=== PATIENT | male | born 1985 | race Hispanic/Latino ===

== ENCOUNTER 2021-06-20 13:34 | Inpatient (IN) | payer SELFPAY ==
[2021-06-20] MEDS ORDERED: ONDANSETRON 4 MG/2 ML INJ IV ONE ×2 (15:08→18:50)
[2021-06-20] MEDS ORDERED: SODIUM CHLORIDE 0.9% 1000 ML 1,000 ML IV ONE (15:08)
--- NOTE | 2021-06-20 15:20 | Emergency Department Report ---
ED General Adult HPI - General Chief complaint: GI Bleed Stated complaint: VOMITING BLOOD PUI?: No Time Seen by Provider: 06/20/21 14:46 Source: EMS Mode of arrival: Stretcher Limitations: No Limitations - History of Present Illness Initial comments: This is a pleasant 36-year-old male who came from mental health; according teresa martinez he was admitted to mental [facility] for hallucination; patient's only medical history is hypertension stated that he does not drink alcohol routinely came in today with concerns of vomiting blood for the past few days that comes and goes. Patient also endorsed right upper quadrant discomfort and also generalized abdominal discomfort. Patient is unable to tell me what makes the abdominal discomfort worse. At the time my evaluation patient denies any discomfort but only right upper quadrant and also epigastric discomfort. Patient current denies any fever chill night sweat dizziness blurred vision lightheadedness headache tinnitus ear pain runny nose sore throat loss of taste loss of smell chest pain palpitation short of breath cough diarrhea constipation dysuria myalgia arthralgia new rash and heat or cold intolerance. - Related Data Home Medications Medication Instructions Recorded Confirmed Last Taken AtorvaSTATin 20 mg PO HS 06/20/21 06/20/21 1 Day Ago ~06/19/21 Famotidine [Acid Controller] 20 mg PO BID 06/20/21 06/20/21 1 Day Ago ~06/19/21 Gabapentin 300 mg PO TID 06/20/21 06/20/21 1 Day Ago ~06/19/21 Magnesium Oxide 400 400 mg PO HS 06/20/21 06/20/21 1 Day Ago ~06/19/21 Melatonin 10 mg PO HS 06/20/21 06/20/21 1 Day Ago ~06/19/21 Metoprolol 12.5 mg PO BID 06/20/21 06/20/21 1 Day Ago ~06/19/21 Mirtazapine 15 mg PO HS 06/20/21 06/20/21 1 Day Ago ~06/19/21 guanFACINE (NF) 1 mg PO BID 06/20/21 06/20/21 1 Day Ago ~06/19/21 Allergies Allergy/AdvReac Type Severity Reaction Status Date / Time sulfamethoxazole Allergy Swelling Verified 06/20/21 14:46 [From Bactrim] trimethoprim [From Bactrim] Allergy Swelling Verified 06/20/21 14:46 ED Review of Systems ROS: Stated complaint: VOMITING BLOOD Other details as noted in HPI Comment: All other systems reviewed and negative Constitutional: no symptoms reported, see HPI Eyes: as per HPI ENT: as per HPI Respiratory: no symptoms reported, see HPI Cardiovascular: as per HPI Endocrine: no symptoms reported, see HPI Gastrointestinal: as per HPI Genitourinary: as per HPI Musculoskeletal: as per HPI Skin: as per HPI Neurological: as per HPI Psychiatric: as per HPI Hematological/Lymphatic: as per HPI ED Past Medical Hx - Past Medical History Previous Medical History?: Yes - Medications Home Medications: Home Medications Medication Instructions Recorded Confirmed Last Taken Type AtorvaSTATin 20 mg PO HS 06/20/21 06/20/21 1 Day Ago History ~06/19/21 Famotidine [Acid Controller] 20 mg PO BID 06/20/21 06/20/21 1 Day Ago History ~06/19/21 Gabapentin 300 mg PO TID 06/20/21 06/20/21 1 Day Ago History ~06/19/21 Magnesium Oxide 400 400 mg PO HS 06/20/21 06/20/21 1 Day Ago History ~06/19/21 Melatonin 10 mg PO HS 06/20/21 06/20/21 1 Day Ago History ~06/19/21 Metoprolol 12.5 mg PO BID 06/20/21 06/20/21 1 Day Ago History ~06/19/21 Mirtazapine 15 mg PO HS 06/20/21 06/20/21 1 Day Ago History ~06/19/21 guanFACINE (NF) 1 mg PO BID 06/20/21 06/20/21 1 Day Ago History ~06/19/21 ED Physical Exam - General Limitations: No Limitations General appearance: alert, in no apparent distress - Head Head exam: Present: atraumatic, normocephalic, normal inspection - Eye Eye exam: Present: normal appearance, PERRL, EOMI Pupils: Present: normal accommodation - ENT ENT exam: Present: normal exam - Neck Neck exam: Present: normal inspection, full ROM - Respiratory Respiratory exam: Present: normal lung sounds bilaterally - Cardiovascular Cardiovascular Exam: Present: regular rate - GI/Abdominal GI/Abdominal exam: Present: soft, distended, tenderness (MID/EPIGASTRIC REGION; NEGATIAVE AT RIGHT UPPRE QUADRATN (NEGATIVE ACEVEDO)), normal bowel sounds. Absent: guarding, rebound, rigid - Extremities Exam Extremities exam: Present: normal inspection, full ROM, normal capillary refill - Back Exam Back exam: Present: normal inspection, full ROM - Neurological Exam Neurological exam: Present: alert, altered, oriented X3, CN II-XII intact - Psychiatric Psychiatric exam: Present: normal affect, normal mood - Skin Skin exam: Present: normal color ED Course Vital Signs 06/20/21 06/20/21 14:04 17:54 Pulse Rate 100 H Respiratory 18 18 Rate Blood Pressure 140/105 [Right] O2 Sat by Pulse 97 Oximetry ED Medical Decision Making - Lab Data Result diagrams: 06/20/21 16:02 06/20/21 16:02 - Medical Decision Making PATIENT HAD AN EPISODE OF VOMITING BLOOD IN FRONT OF MY NURSE AND PER NURSE, ITS NOT COUGHING BUT FOR SURE VOMITING. ON MY ARRIVAL, I DO SEE A PUDDLE OF BLOOD (BRIGHT RED); WILL START PPI, NPO, CALL HOSPITALIST AND GI. PATIENT HEMODYNAMICALLY STABLE WITH PATENT AIRWAY. Critical care attestation.: If time is entered above; I have spent that time in minutes in the direct care of this critically ill patient, excluding procedure time. ED Disposition Clinical Impression: Hematemesis of fresh blood, Biliary sludge determined by ultrasound Disposition: 02 SHORT TERM HOSPITAL Is pt being admited?: Yes Does the pt Need Aspirin: No Condition: Stable Instructions: Hematemesis Referrals: PRIMARY CARE, [Primary Care Provider] - 3-5 Days Forms: Accompanied Note Time of Disposition: 18:55
--- NOTE | 2021-06-20 16:29 | Ultrasound Report ---
ULTRASOUND ABDOMEN, LIMITED (RIGHT UPPER QUADRANT) INDICATION: ruq pain. COMPARISON: None available. FINDINGS: Pancreas: Not well visualized. Liver: Normal in size. Generalized increased echotexture. No solid or cystic lesions. Normal portal v enous flow. Gallbladder: Contracted without visualization of stones. A small/moderate amount of sludge is present . Sonographic Walker's sign: Not performed. Bile ducts: No significant abnormality. Common Bile Duct measures 3.6 mm. Free fluid: None. Additional Findings: None. IMPRESSION: 1. Increased hepatic echotexture, most commonly representing steatosis. 2. Contracted gallbladder containing sludge without clearly visualize shadowing stones or evidence of acute cholecystitis. Signer Name: Raza Mendieta MD Signed: 06/20/2021 4:25 PM Workstation Name: [id number]
[2021-06-20 16:30] LABS: Hematocrit 41.4 % (35.5-45.6); Hemoglobin 13.5 gm/dl (11.8-15.2); Mean Corpuscular HGB Conc 33 % (32-34); Mean Corpuscular Volume 83 fl (84-94); Platelet Count 311 K/mm3 (140-440); Red Blood Count 4.97 M/mm3 (3.65-5.03); Red Cell Distribution Width 14.8 % (13.2-15.2)
[2021-06-20 16:41] LABS: INR 0.89 (0.87-1.13)
[2021-06-20 16:42] LABS: Partial Thromboplastin Time 25.4 Sec. (24.2-36.6)
[2021-06-20 16:59] LABS: Alanine Aminotransferase 28 units/L (7-56); Albumin 3.7 g/dL (3.9-5); BUN/Creatinine Ratio 14; Blood Urea Nitrogen 10 mg/dL (9-20); Calcium 8.4 mg/dL (8.4-10.2); Hemolysis Index 4
--- NOTE | 2021-06-20 17:29 | Cat Scan Report ---
CT ABDOMEN AND PELVIS WITH CONTRAST INDICATION / CLINICAL INFORMATION: Unspecified abdominal discomfort. TECHNIQUE: Axial CT images were obtained through the abdomen and pelvis after 100 cc Omnipaque [address] scans at this location are performed using CT dose reduction for ALARA by means of automated exposure control. COMPARISON: None available. FINDINGS: LOWER CHEST: No significant abnormality. LIVER: A probable subcentimeter cyst is seen along the lateral segment of the left hepatic lobe. No o ther significant abnormality. GALLBLADDER: No significant abnormality. BILE DUCTS: No significant abnormality. PANCREAS: No significant abnormality. SPLEEN: No significant abnormality. ADRENALS: No significant abnormality. RIGHT KIDNEY/URETER: No significant abnormality. LEFT KIDNEY/URETER: No significant abnormality. STOMACH/SMALL BOWEL: No significant abnormality. COLON: No significant abnormality. APPENDIX: No significant abnormality. PERITONEUM: No free fluid. No free air. No fluid collection. LYMPH NODES: No significant adenopathy. VASCULATURE: No significant abnormality. URINARY BLADDER: No significant abnormality. REPRODUCTIVE ORGANS: No significant abnormality. ADDITIONAL FINDINGS: None. BONES: No acute findings. Multiple old bilateral rib fractures are noted. IMPRESSION: 1. No acute findings to explain the patient's abdominal discomfort. 2. Additional findings as above. Signer Name: Raza Mendieta MD Signed: 06/20/2021 5:25 PM Workstation Name: [id number]
[2021-06-20] MEDS ORDERED: MORPHINE 4 MG/1 ML INJ IV ONE (17:47)
[2021-06-20] MEDS ORDERED: PANTOPRAZOLE 40 MG INJ IV ONE (18:52)
--- NOTE | 2021-06-20 19:07 | History and Physical Report ---
History of Present Illness Chief complaint: I have been vomiting of blood History of present illness: 36 YO Male with HTN, Obesity Hypoventilation Syndrome, GERD, Neuropathy, Psychosis NOS presents ED for evaluation. Patient reports "I been vomiting up blood". Patient states that he has experienced 3-4 episodes of "vomiting of blood over the past 3 days. Patient states his symptoms have been accompanied by abdominal discomfort. EMS was notified and upon arrival the patient was found to be in distress and subsequently transported to [facility] for further care and evaluation of the aforementioned symptoms. The patient was seen and evaluated in the emergency department. All lab and imaging studies reviewed. Patient had a witnessed episode of hematemesis while in the emergency department. GI team was consulted. Patient admitted to medical floor due to increased risk of worsening symptoms. Patient initiated on GI bleed protocol. Patient denies fever, chills, chest pain, palpitations, productive cough, skin rash, recent ill contacts, bleeding, ingestion of food/water from new or different sources, brigh t red blood per rectum, recent ill contacts, known exposure to COVID-19. No prior admission for review. All medication listed at time of admission has been reconciled. Advanced care planning conducted in ED. Past History Past Medical History: hypertension, other (See HPI) Past Surgical History: No surgical history, Other (Reviewed) Social history: single. denies: smoking, alcohol abuse, prescription drug abuse Family history: hypertension Medications and Allergies Allergies Allergy/AdvReac Type Severity Reaction Status Date / Time sulfamethoxazole Allergy Swelling Verified 06/20/21 14:46 [From Bactrim] trimethoprim [From Bactrim] Allergy Swelling Verified 06/20/21 14:46 Home Medications Medication Instructions Recorded Confirmed Last Taken Type AtorvaSTATin 20 mg PO HS 06/20/21 06/20/21 1 Day Ago History ~06/19/21 Famotidine [Acid Controller] 20 mg PO BID 06/20/21 06/20/21 1 Day Ago History ~06/19/21 Gabapentin 300 mg PO TID 06/20/21 06/20/21 1 Day Ago History ~06/19/21 Magnesium Oxide 400 400 mg PO HS 06/20/21 06/20/21 1 Day Ago History ~06/19/21 Melatonin 10 mg PO HS 06/20/21 06/20/21 1 Day Ago History ~06/19/21 Metoprolol 12.5 mg PO BID 06/20/21 06/20/21 1 Day Ago History ~06/19/21 Mirtazapine 15 mg PO HS 06/20/21 06/20/21 1 Day Ago History ~06/19/21 guanFACINE (NF) 1 mg PO BID 06/20/21 06/20/21 1 Day Ago History ~06/19/21 Active Meds: Active Medications Pantoprazole Sodium 80 mg/ (Sodium Chloride) 100 mls @ 10 mls/hr IV DIRECT KRYSTYNA Review of Systems Constitutional: no weight loss, no weight gain, no fever, no chills, no anorexia, no fatigue, no weakness, no malaise Ears, nose, mouth and throat: no ear pain, no tinnitis, no nose pain, no nasal congestion, no nasal discharge, no sinus pressure Cardiovascular: no chest pain, no orthopnea, no edema Respiratory: no cough, no cough with sputum, no excessive sputum, no hemoptysis Gastrointestinal: hematemesis, no abdominal pain, no nausea, no vomiting, no diarrhea, no constipation, no change in bowel habits, no BRBPR, no melena, no loss of appetite, no heartburn, no indigestion Genitourinary Male: no hematuria, no flank pain, no discharge, no urinary frequency, no urinary hesitancy Rectal: no pain, no incontinence, no bleeding Musculoskeletal: no neck stiffness, no neck pain, no shooting arm pain, no arm numbness/tingling, no low back pain, no shooting leg pain Integumentary: no rash, no pruritis, no redness, no sores, no wounds, no jaundice Neurological: no head injury, no weakness, no tingling, no syncope Psychiatric: no anxiety, no change in sleep habits, no hypersomnia, no change in libido, no suicidal ideation Endocrine: no cold intolerance, no polyphagia, no polydipsia, no nocturia, no excessive sweating Hematologic/Lymphatic: no easy bruising, no easy bleeding, no lymphadenopathy Allergic/Immunologic: no urticaria, no allergic rhinitis, no persistent infections, no angioedema Exam - Constitutional Vitals: Temp Pulse Resp BP Pulse Ox 100 H 18 140/105 97 06/20/21 14:04 06/20/21 17:54 06/20/21 14:04 06/20/21 14:04 General appearance: Present: mild distress, obese - EENT Eyes: Present: PERRL ENT: hearing intact, clear oral mucosa - Neck Neck: Present: supple, normal ROM - Respiratory Respiratory effort: normal Respiratory: bilateral: CTA - Cardiovascular Heart Sounds: Present: S1 & S2. Absent: rub, click - Extremities Extremities: pulses symmetrical, No edema Peripheral Pulses: within normal limits - Abdominal General gastrointestinal: Present: soft, non-tender, non-distended, normal bowel sounds Male genitourinary: Present: normal - Integumentary Integumentary: Present: clear, warm, dry - Musculoskeletal Musculoskeletal: gait normal, strength equal bilaterally - Psychiatric Psychiatric: appropriate mood/affect, intact judgment & insight - Neurologic Neurologic: CNII-XII intact, moves all extremities Results - Labs CBC & Chem 7: 06/20/21 16:02 06/20/21 16:02 Labs: Abnormal lab results 06/20/21 06/20/21 Range/Units 16:02 16:02 WBC 15.9 H (4.5-11.0) K/mm3 MCV 83 L (84-94) fl MCH 27 L (28-32) pg Creatinine 0.7 L (0.8-1.3) mg/dL Albumin 3.7 L (3.9-5) g/dL Assessment and Plan - Patient Problems (1) GI bleed Current Visit: Yes Status: Acute Plan to address problem: GI bleed protocol: GI team consulted in ED, PPI therapy, IV fluid resuscitation therapy, bowel rest, will consider packed red blood cell transfusion if patient hemoglobin decreases by greater than 2 g within 24-hour period. (2) Hypertension Current Visit: Yes Status: Acute Qualifiers: Hypertension type: primary hypertension Qualified Code(s): I10 - Essential (primary) hypertension Plan to address problem: Monitor blood pressure every shift, continue medical management. (3) Obesity hypoventilation syndrome Current Visit: Yes Status: Acute Plan to address problem: Balanced diet, increase physical activity at discharge, outpatient pulmonary follow-up for sleep study. (4) Psychosis Current Visit: Yes Status: Acute Plan to address problem: Mental health team consulted. (5) GERD (gastroesophageal reflux disease) Current Visit: Yes Status: Acute Qualifiers: Esophagitis presence: without esophagitis Qualified Code(s): K21.9 - Gastro-esophageal reflux disease without esophagitis Plan to address problem: PPI therapy, supportive care. GI team consulted. (6) DVT prophylaxis Current Visit: Yes Status: Acute Plan to address problem: SCD to bilateral lower extremities while in bed (7) Advance care planning Current Visit: Yes Status: Acute Plan to address problem: Disease education done, care plan discussed, diagnoses discussed, prognosis discussed, patient is full code. Patient knowledges understanding and agreement with care plan, +30 minutes. (8) Preventative health care Current Visit: Yes Status: Acute Plan to address problem: Patient counseled regarding balanced diet, meal planning, medication compliance, +15 minutes.
[2021-06-20] MEDS ORDERED: ACETAMINOPHEN 325 MG TAB PO PRN (19:08)
[2021-06-20] MEDS ORDERED: oxyCODONE /ACETAMINOPHEN 5-325MG TAB PO PRN (19:08)
[2021-06-20] MEDS ORDERED: ALBUTEROL 2.5 MG/3 ML NEBU IH PRN (19:08)
[2021-06-20] MEDS ORDERED: PANTOPRAZOLE 80 MG in SODIUM CHLORIDE 0.9% 100 ML IV SCH (20:00)
--- NOTE | 2021-06-20 21:35 | Event Note ---
Date: 06/20/21 called by ER for patient with max hematemesis which was witnessed by ER staff. No history cirrhosis, pt stable so ok for non-emergent EGD, patient scheduled for EGD at 7:30AM tomorrow morning Please call back if patient has any hemodynamic instability which would require emergent endoscopy (we cannot perform procedures overnight so I would have to assess for transfer to different facility vs medical management until 7:30AM in the morning)
[2021-06-20] MEDS: GABAPENTIN 300 MG CAP PO SCH (21:45)
[2021-06-20] MEDS ORDERED: MIRTAZAPINE 15 MG PO SCH (22:00)
[2021-06-20] MEDS ORDERED: NON-FORMULARY EACH (Melatonin 10 MG) PO SCH (22:00)
[2021-06-20] MEDS ORDERED: NON-FORMULARY EACH (Atorvastatin 20 MG) PO SCH (22:00)
[2021-06-20] MEDS ORDERED: METOPROLOL 12.5 MG PO SCH (22:00)
[2021-06-20] MEDS ORDERED: MAGNESIUM OXIDE PO SCH (22:00)
[2021-06-20] MEDS: ONDANSETRON 4 MG/2 ML INJ IV PRN (22:04)
[2021-06-20] MEDS: HYDROmorphone 1 MG/1 ML INJ IV PRN (22:04)
[2021-06-20] MEDS: MIRTAZAPINE 15 MG TAB PO SCH (22:07)
[2021-06-20] MEDS: FAMOTIDINE 20 MG TAB PO SCH (22:07)
[2021-06-20] MEDS: MELATONIN 5 MG TAB PO SCH (22:08)
[2021-06-20] MEDS: METOPROLOL TARTRATE 25 MG TAB PO SCH (22:09)
[2021-06-21] MEDS: ONDANSETRON 4 MG/2 ML INJ IV PRN ×3 (05:56→15:52)
[2021-06-21] MEDS: HYDROmorphone 1 MG/1 ML INJ IV PRN ×3 (05:56→15:52)
[2021-06-21] MEDS ORDERED: WATER FOR IRRIG STERILE 1,000 ML BOTTLE ONE ×2 (07:22→07:24)
[2021-06-21] MEDS ORDERED: WATER FOR IRRIG STERILE 250 ML BOTTLE IR ONE (07:22)
[2021-06-21] MEDS ORDERED: SODIUM CHLORIDE 0.9% 1000 ML 1,000 ML ONE (07:22)
[2021-06-21] MEDS ORDERED: EPINEPHrine 1 MG/10 ML SYRINGE ONE (07:22)
[2021-06-21] MEDS ORDERED: propofoL 200 MG/20 ML VIAL IV ONE ×2 (07:39→07:40)
[2021-06-21] MEDS ORDERED: LIDOCAINE MPF (2%) 20 MG/1 ML VIAL 5 ML ONE (07:40)
--- NOTE | 2021-06-21 07:55 | Gastroenterology Consultation ---
History of Present Illness - Reason for Consult Consult date: 06/21/21 Hematemesis Requesting physician: ALTHEA VELAZCO - History of Present Illness Is a pleasant 36-year-old gentleman for whom GI is consulted for hematemesis Patient reports for the last 3 days having recurrent episodes of grossly bloody vomitus Reports this is associated with sharp right upper abdominal quadrant pain. Intermittent. Waxing and waning. Duration 3 days. Severe. No alleviating or exacerbating factors. Associated with nausea and bloody vomitus Reports he is not having active melena as he reports his last bowel movement was over 24 hours ago Denies taking NSAIDs though he reports he was just released from a mental health facility and had a recent incarceration Denies any abdominal trauma or history of peptic ulcer disease Reports his father had to have his gallbladder out at a young age unsure if this could be related In the emergency room patient had an ultrasound and a CT scan. CT scan unremarkable Ultrasound demonstrated contracted gallbladder no evidence for gallstones no evidence for acute cholecystitis Obtained/updated/reviewed patient's current medications Past History Past Medical History: hypertension, other (See HPI) Past Surgical History: No surgical history, Other (Reviewed) Social history: single. denies: smoking, alcohol abuse, prescription drug abuse Family history: hypertension Medications and Allergies Allergies Allergy/AdvReac Type Severity Reaction Status Date / Time sulfamethoxazole Allergy Swelling Verified 06/20/21 14:46 [From Bactrim] trimethoprim [From Bactrim] Allergy Swelling Verified 06/20/21 14:46 Home Medications Medication Instructions Recorded Confirmed Last Taken Type AtorvaSTATin 20 mg PO HS 06/20/21 06/20/21 1 Day Ago History ~06/19/21 Famotidine [Acid Controller] 20 mg PO BID 06/20/21 06/20/21 1 Day Ago History ~06/19/21 Gabapentin 300 mg PO TID 06/20/21 06/20/21 1 Day Ago History ~06/19/21 Magnesium Oxide 400 400 mg PO HS 06/20/21 06/20/21 1 Day Ago History ~06/19/21 Melatonin 10 mg PO HS 06/20/21 06/20/21 1 Day Ago History ~06/19/21 Metoprolol 12.5 mg PO BID 06/20/21 06/20/21 1 Day Ago History ~06/19/21 Mirtazapine 15 mg PO HS 06/20/21 06/20/21 1 Day Ago History ~06/19/21 guanFACINE (NF) 1 mg PO BID 06/20/21 06/20/21 1 Day Ago History ~06/19/21 Active Meds: Active Medications Acetaminophen (Acetaminophen 325 Mg Tab) 650 mg PO Q4H PRN PRN Reason: Pain MILD(1-3)/Fever >100.5/ALFREDO Albuterol (Albuterol 2.5 Mg/3 Ml Nebu) 2.5 mg IH Q4HRT PRN PRN Reason: Shortness Of Breath Atorvastatin Calcium (Atorvastatin 20 Mg Tab) 20 mg PO QHS [facility] Last Admin: 06/20/21 22:08 Dose: Not Given Famotidine (Famotidine 20 Mg Tab) 20 mg PO BID [facility] Last Admin: 06/20/21 22:07 Dose: Not Given Gabapentin (Gabapentin 300 Mg Cap) 300 mg PO TID [facility] Last Admin: 06/20/21 21:45 Dose: Not Given Hydromorphone HCl (Hydromorphone 1 Mg/1 Ml Inj) 0.5 mg IV Q23H PRN PRN Reason: Pain , Severe (7-10) Last Admin: 06/21/21 05:56 Dose: 0.5 mg Pantoprazole Sodium 80 mg/ (Sodium Chloride) 100 mls @ 10 mls/hr IV DIRECT [facility] Last Infusion: 06/21/21 06:29 Dose: 6.4 mg/hr, 8 mls/hr Magnesium Oxide (Magnesium Oxide 400 Mg Tab) 400 mg PO QDAY [facility] Melatonin (Melatonin 5 Mg Tab) 10 mg PO [facility] Last Admin: 06/20/21 22:08 Dose: Not Given Metoprolol Tartrate (Metoprolol Tartrate 25 Mg Tab) 12.5 mg PO BID [facility] Last Admin: 06/20/21 22:09 Dose: Not Given Mirtazapine (Mirtazapine 15 Mg Tab) 15 mg PO QHS [facility] Last Admin: 06/20/21 22:07 Dose: Not Given Ondansetron HCl (Ondansetron 4 Mg/2 Ml Inj) 4 mg IV Q8H PRN PRN Reason: Nausea And Vomiting Last Admin: 06/21/21 05:56 Dose: 4 mg Oxycodone/Acetaminophen (Oxycodone /Acetaminophen 5-325mg Tab) 1 tab PO Q16H PRN PRN Reason: Pain, Moderate (4-6) Sodium Chloride (Sodium Chloride 0.9% 10 Ml Flush Syringe) 10 ml IV BID [facility] Last Admin: 06/20/21 22:07 Dose: 10 ml Sodium Chloride (Sodium Chloride 0.9% 10 Ml Flush Syringe) 10 ml IV PRN PRN PRN Reason: LINE FLUSH Review of Systems - Review of Systems All systems: negative (10 Systems reviewed and negative except as mentioned above in the history of present illness) Exam - Constitutional Vital Signs: Temp Pulse Resp BP Pulse Ox 98.5 F 76 20 124/88 95 06/21/21 06:12 06/21/21 06:12 06/21/21 06:12 06/21/21 06:12 06/21/21 06:12 General appearance: no acute distress - EENT Eyes: EOM intact ENT: hearing intact - Neck Neck: supple - Respiratory Respiratory effort: normal - Cardiovascular Rhythm: regular - Gastrointestinal General gastrointestinal: Present: soft, tender - Integumentary Integumentary: Present: dry (Multiple tattoos) - Musculoskeletal Musculoskeletal: normal - Neurologic Neurological: alert and oriented x3 - Psychiatric Psychiatric: appropriate mood/affect - Labs CBC & Chem 7: 06/20/21 16:02 06/20/21 16:02 Lab Results: Laboratory Results - last 24 hr 06/20/21 06/20/21 06/20/21 15:07 16:02 16:02 WBC 15.9 H RBC 4.97 Hgb 13.5 Hct 41.4 MCV 83 L MCH 27 L MCHC 33 RDW 14.8 Plt Count 311 PT INR APTT Sodium 139 Potassium 4.1 Chloride 102.8 Carbon Dioxide 27 Anion Gap 13 BUN 10 Creatinine 0.7 L Estimated GFR > 60 BUN/Creatinine Ratio 14 Glucose 91 Lactic Acid Calcium 8.4 Magnesium 2.10 Total Bilirubin 0.30 AST 16 ALT 28 Alkaline Phosphatase 110 Total Protein 6.9 Albumin 3.7 L Albumin/Globulin Ratio 1.2 Lipase 13 Blood Type A POSITIVE Antibody Screen Negative 06/20/21 06/20/21 16:02 16:02 WBC RBC Hgb Hct MCV MCH MCHC RDW Plt Count PT 13.0 INR 0.89 APTT 25.4 Sodium Potassium Chloride Carbon Dioxide Anion Gap BUN Creatinine Estimated GFR BUN/Creatinine Ratio Glucose Lactic Acid 1.60 Calcium Magnesium Total Bilirubin AST ALT Alkaline Phosphatase Total Protein Albumin Albumin/Globulin Ratio Lipase Blood Type Antibody Screen Assessment and Plan Differential diagnosis for the patient's hematemesis of right upper quadrant abdominal pain includes peptic ulcer disease, AVMs, severe gastritis, Arminda- Cobian tear, etc. Patient with multiple episodes of max witnessed hematemesis we will proceed with urgent EGD and In the meantime continue PPI drip and n.p.o. status Final recommendations pending EGD result - Patient Problems (1) Right upper quadrant abdominal pain Current Visit: Yes Status: Acute (2) GI bleed Current Visit: Yes Status: Acute (3) Hematemesis of fresh blood Current Visit: Yes Status: Acute
--- NOTE | 2021-06-21 07:59 | Operative Report ---
Operative Report Operative Report: DOS: 06/21/21 SURGEON: Geovani Dasilva MD EGD REPORT PREOPERATIVE DIAGNOSIS and POSTOPERATIVE DIAGNOSIS: Hematemesis ESTIMATED BLOOD LOSS: None DESCRIPTION OF PROCEDURE: A high-resolution EGD scope was passed through the oropharynx, esophagus, stomach, and second portion of duodenum. The scope was carefully withdrawn. Retroflexion was performed in the stomach. At the end of the procedure, the scope was cleaned using normal technique. Vital signs monitored continuously throughout. SEDATION: Provided by Anest[facility]iology Services. COMPLICATIONS: None. FINDINGS: * Entire examined duodenum was normal * Minimal gastritis throughout the stomach * 5 mm semisessile benign-appearing gastric polyp in the gastric body. 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 This was carefully washed and appeared to just be simple esophagitis, no evidence for Arminda-Cobian tear based upon endoscopic appearance. There was no high risk stigmata and the lesion was low risk for bleeding therefore intervention not performed * Remainder of esophagus unremarkable RECOMMENDATIONS: * Based upon EGD results this appears to be simple esophagitis induced hematemesis. We will switch patient to twice daily PPI and start diet * Suspect this is due to reflux and patient's vomiting and does not explain patient's abdominal pain. Therefore will recommend HIDA scan with ejection fraction rule out biliary dyskinesia as a potential underlying source for the patient's symptoms
--- NOTE | 2021-06-21 08:13 | Anesthesia Day of Surgery ---
Anesthesia Day of Surgery - Day of Surgery Patient Examined: Yes Patient H&P Reviewed: Yes Patient is NPO: Yes
--- NOTE | 2021-06-21 08:14 | Anesthesia Consultation ---
Anesthesia Consult and Med Hx Date of service: 06/21/21 - Airway Anesthetic Teeth Evaluation: Good ROM Head & Neck: Adequate Mental/Hyoid Distance: Adequate Mallampati Class: Class II Intubation Access Assessment: Good - Pulmonary Exam CTA: Yes - Cardiac Exam Cardiac Exam: RRR - Pre-Operative Health Status ASA Pre-Surgery Classification: ASA3 Proposed Anesthetic Plan: MAC - Pulmonary Hx Asthma: No COPD: No Hx Pneumonia: No - Cardiovascular System Hx Hypertension: Yes - Central Nervous System Hx Psychiatric Problems: Yes - Gastrointestinal Hx Gastroesophageal Reflux Disease: Yes - Endocrine Hx End Stage Renal Disease: No - Other Systems Hx Cancer: No Hx Obesity: Yes
[2021-06-21] MEDS ORDERED: LORazepam 1 MG TAB PO PRN (09:30)
[2021-06-21] MEDS ORDERED: HALOPERIDOL 5 MG TAB PO PRN (09:30)
[2021-06-21] MEDS: METOPROLOL TARTRATE 25 MG TAB PO SCH ×2 (09:38→21:25)
[2021-06-21] MEDS: MAGNESIUM OXIDE 400 MG TAB PO SCH (09:38)
[2021-06-21] MEDS: GABAPENTIN 300 MG CAP PO SCH ×3 (09:38→21:16)
[2021-06-21] MEDS: FAMOTIDINE 20 MG TAB PO SCH (09:38)
[2021-06-21] MEDS ORDERED: LORazepam 2 MG/ML VIAL IV PRN (09:55)
[2021-06-21] MEDS ORDERED: PANTOPRAZOLE 40 MG TAB PO SCH (10:00)
[2021-06-21] MEDS: PANTOPRAZOLE 40 MG INJ IV SCH ×2 (11:03→21:16)
--- NOTE | 2021-06-21 11:27 | Progress Note ---
Assessment and Plan Assessment and plan: 36 YO Male with HTN, Obesity Hypoventilation Syndrome, GERD, Neuropathy, Psychosis NOS presents ED for evaluation of hematemesis with 3-4 episodes of vomiting of blood over the past 3 days. Patient states his symptoms have been accompanied by abdominal discomfort. The patient was seen and evaluated in the emergency department. All lab and imaging studies reviewed. Patient had a witnessed episode of hematemesis while in the emergency department. GI team was consulted. UGIB/hematemesis Esophagitis induced hematemesis Abdominal pain Hypertension Obesity hypoventilation syndrome Psychosis GERD 06/21/2021. The patient underwent EGD which revealed minimal gastritis throughout the stomach. Patient also had a 5 mm single sessile benign-appearing gastric polyp in the gastric body. The patient also had localized area of esophagitis at the GE junction with overlying blood. This appeared to be related to simple esophagitis with no evidence of Arminda-Cobian tear. Continue PPI twice daily. We will also perform HIDA scan with ejection fraction to rule out biliary dyskinesia as potential etiology for patient's abdominal pain. GI following. Psych has been consulted for patient's history of psychosis. Resume home psych medications History Interval history: No new issues overnight. Hospitalist Physical - Constitutional Vitals: Temp Pulse Resp BP Pulse Ox 98.3 F 89 18 121/73 97 06/21/21 07:51 06/21/21 08:11 06/21/21 08:11 06/21/21 08:11 06/21/21 08:11 General appearance: Present: no acute distress, obese - EENT Eyes: Present: PERRL, EOM intact ENT: hearing intact, clear oral mucosa, dentition normal - Neck Neck: Present: supple, normal ROM - Respiratory Respiratory effort: normal Respiratory: bilateral: CTA - Cardiovascular Rhythm: regular Heart Sounds: Present: S1 & S2. Absent: gallop, rub - Extremities Extremities: no ischemia, No edema, Full ROM - Abdominal General gastrointestinal: soft, non-tender, non-distended, normal bowel sounds - Integumentary Integumentary: Present: clear, warm, dry - Neurologic Neurologic: CNII-XII intact, moves all extremities Results - Labs CBC & Chem 7: 06/20/21 16:02 06/20/21 16:02 Labs: Laboratory Last Values WBC 15.9 K/mm3 (4.5-11.0) H 06/20/21 16:02 RBC 4.97 M/mm3 (3.65-5.03) 06/20/21 16:02 Hgb 13.5 gm/dl (11.8-15.2) 06/20/21 16:02 Hct 41.4 % (35.5-45.6) 06/20/21 16:02 MCV 83 fl (84-94) L 06/20/21 16:02 MCH 27 pg (28-32) L 06/20/21 16:02 MCHC 33 % (32-34) 06/20/21 16:02 RDW 14.8 % (13.2-15.2) 06/20/21 16:02 Plt Count 311 K/mm3 (140-440) 06/20/21 16:02 PT 13.0 Sec. (12.2-14.9) 06/20/21 16:02 INR 0.89 (0.87-1.13) 06/20/21 16:02 APTT 25.4 Sec. (24.2-36.6) 06/20/21 16:02 Sodium 139 mmol/L (137-145) 06/20/21 16:02 Potassium 4.1 mmol/L (3.6-5.0) 06/20/21 16:02 Chloride 102.8 mmol/L (98-107) 06/20/21 16:02 Carbon Dioxide 27 mmol/L (22-30) 06/20/21 16:02 Anion Gap 13 mmol/L 06/20/21 16:02 BUN 10 mg/dL (9-20) 06/20/21 16:02 Creatinine 0.7 mg/dL (0.8-1.3) L 06/20/21 16:02 Estimated GFR > 60 ml/min 06/20/21 16:02 BUN/Creatinine Ratio 14 % 06/20/21 16:02 Glucose 91 mg/dL (75-100) 06/20/21 16:02 Lactic Acid 1.60 mmol/L (0.7-2.0) 06/20/21 16:02 Calcium 8.4 mg/dL (8.4-10.2) 06/20/21 16:02 Magnesium 2.10 mg/dL (1.7-2.3) 06/20/21 16:02 Total Bilirubin 0.30 mg/dL (0.1-1.2) 06/20/21 16:02 AST 16 units/L (5-40) 06/20/21 16:02 ALT 28 units/L (7-56) 06/20/21 16:02 Alkaline Phosphatase 110 units/L (35-129) 06/20/21 16:02 Total Protein 6.9 g/dL (6.3-8.2) 06/20/21 16:02 Albumin 3.7 g/dL (3.9-5) L 06/20/21 16:02 Albumin/Globulin Ratio 1.2 % 06/20/21 16:02 Lipase 13 units/L (13-60) 06/20/21 16:02 Blood Type A POSITIVE 06/20/21 15:07 Antibody Screen Negative 06/20/21 15:07 Mann/IV: Voiding Method Toilet Active Medications - Current Medications Current Medications: Generic Name Dose Route Start Last Admin Trade Name Freq PRN Reason Stop Dose Admin Acetaminophen 650 mg 06/20/21 19:08 Acetaminophen 325 Mg Tab PO Q4H PRN Pain MILD(1-3)/Fever >100.5/ALFREDO Albuterol 2.5 mg 06/20/21 19:08 Albuterol 2.5 Mg/3 Ml Nebu IH Q4HRT PRN Shortness Of Breath Atorvastatin Calcium 20 mg 06/20/21 22:00 06/20/21 22:08 Atorvastatin 20 Mg Tab PO Not Given QHS KRYSTYNA Gabapentin 300 mg 06/20/21 20:00 06/21/21 09:38 Gabapentin 300 Mg Cap PO Not Given TID KRYSTYNA Haloperidol 5 mg 06/21/21 09:30 Haloperidol 5 Mg Tab PO Q8H PRN Psychosis Hydromorphone HCl 0.5 mg 06/20/21 19:08 06/21/21 08:58 Hydromorphone 1 Mg/1 Ml Inj IV 0.5 mg Q23H PRN Administration Pain , Severe (7-10) Lorazepam 1 mg 06/21/21 09:30 Lorazepam 1 Mg Tab PO Q8H PRN Agitation Lorazepam 1 mg 06/21/21 09:55 06/21/21 10:25 Lorazepam 2 Mg/Ml Vial IV 1 mg Q4H PRN Administration Anxiety Magnesium Oxide 400 mg 06/21/21 10:00 06/21/21 09:38 Magnesium Oxide 400 Mg Tab PO Not Given QDAY KRYSTYNA Melatonin 10 mg 06/20/21 22:00 06/20/21 22:08 Melatonin 5 Mg Tab PO Not Given HS [facility] Metoprolol Tartrate 12.5 mg 06/20/21 22:00 06/21/21 09:38 Metoprolol Tartrate 25 Mg Tab PO Not Given BID KRYSTYNA Mirtazapine 15 mg 06/20/21 22:00 06/20/21 22:07 Mirtazapine 15 Mg Tab PO Not Given QHS [facility] Miscellaneous Medication 1 mg 06/21/21 10:00 Guanfacine Hcl [Guanfacine Hcl Er] PO BID [facility] Ondansetron HCl 4 mg 06/20/21 19:23 06/21/21 08:58 Ondansetron 4 Mg/2 Ml Inj IV 4 mg Q8H PRN Administration Nausea And Vomiting Oxycodone/Acetaminophen 1 tab 06/20/21 19:08 Oxycodone /Acetaminophen 5-325mg Tab PO Q16H PRN Pain, Moderate (4-6) Pantoprazole Sodium 40 mg 06/21/21 11:00 06/21/21 11:03 Pantoprazole 40 Mg Inj IV 40 mg BID KRYSTYNA Administration Sodium Chloride 10 ml 06/20/21 22:00 06/21/21 09:38 Sodium Chloride 0.9% 10 Ml Flush Syringe IV Not Given BID KRYSTYNA Sodium Chloride 10 ml 06/20/21 19:08 Sodium Chloride 0.9% 10 Ml Flush Syringe IV PRN PRN LINE FLUSH
[2021-06-21 11:37] LABS: Basophils % (Auto) 0.4 % (0.0-1.8); Eosinophils # (Auto) 0.2 K/mm3 (0.0-0.4); Eosinophils % (Auto) 1.6 % (0.0-4.3); Hematocrit 42.7 % (35.5-45.6); Hemoglobin 13.5 gm/dl (11.8-15.2); Lymphocytes # (Auto) 1.8 K/mm3 (1.2-5.4); Lymphocytes % (Auto) 16.6 % (13.4-35.0); Mean Corpuscular HGB Conc 32 % (32-34); Mean Corpuscular Volume 83 fl (84-94); Monocytes # (Auto) 1.1 K/mm3 (0.0-0.8); Monocytes % (Auto) 9.6 % (0.0-7.3); Platelet Count 291 K/mm3 (140-440); Red Blood Count 5.13 M/mm3 (3.65-5.03); Red Cell Distribution Width 14.8 % (13.2-15.2)
--- NOTE | 2021-06-21 13:56 | Consultation ---
History of Present Illness - Reason for Consult Consult date: 06/21/21 Reason for consult: Mental health evaluation - Chief Complaint Chief complaint: I have been vomiting of blood - History of Present Psychiatric Illness The patient is a 36 year old male with unknown psychiatric history. Attempted seeing the patient twice but he was heard screaming on the phone stating he is trying to fix his relationship. Sitter at the bedside. PAST PSYCHIATRIC HISTORY PAST MEDICAL HISTORY: none reported Family Psychiatric History: None reported or documented SOCIAL HISTORY REVIEW OF SYSTEMS MENTAL STATUS EXAMINATION Assessment and Plan (1) Mental health evaluation (2) Current Visit: Yes Status: Acute Treatment Continue Home meds. Sitter: Per primary Medical: Per primary Disposition: Do not recommend acute inpatient psychiatric treatment. Case staffed with Dr. Sanchez Will follow. Medications and Allergies Allergies Allergy/AdvReac Type Severity Reaction Status Date / Time sulfamethoxazole Allergy Swelling Verified 06/20/21 14:46 [From Bactrim] trimethoprim [From Bactrim] Allergy Swelling Verified 06/20/21 14:46 Home Medications Medication Instructions Recorded Confirmed Last Taken Type AtorvaSTATin 20 mg PO HS 06/20/21 06/20/21 1 Day Ago History ~06/19/21 Famotidine [Acid Controller] 20 mg PO BID 06/20/21 06/20/21 1 Day Ago History ~06/19/21 Gabapentin 300 mg PO TID 06/20/21 06/20/21 1 Day Ago History ~06/19/21 Magnesium Oxide 400 400 mg PO HS 06/20/21 06/20/21 1 Day Ago History ~06/19/21 Melatonin 10 mg PO HS 06/20/21 06/20/21 1 Day Ago History ~06/19/21 Metoprolol 12.5 mg PO BID 06/20/21 06/20/21 1 Day Ago History ~06/19/21 Mirtazapine 15 mg PO HS 06/20/21 06/20/21 1 Day Ago History ~06/19/21 guanFACINE (NF) 1 mg PO BID 06/20/21 06/20/21 1 Day Ago History ~06/19/21 Guanfacine HCl [Guanfacine HCl ER] 1 mg PO BID 06/21/21 06/21/21 Unknown History LORazepam [Lorazepam] 1 mg PO Q8H PRN 06/21/21 06/21/21 Unknown History Melatonin [Melatonin 10MG CAP] 10 mg PO QHS 06/21/21 06/21/21 Unknown History Mirtazapine [Remeron] 15 mg PO QHS 06/21/21 06/21/21 Unknown History haloperidoL [Haloperidol] 5 mg PO Q8H PRN 06/21/21 06/21/21 Unknown History Active Meds: Active Medications Acetaminophen (Acetaminophen 325 Mg Tab) 650 mg PO Q4H PRN PRN Reason: Pain MILD(1-3)/Fever >100.5/ALFREDO Albuterol (Albuterol 2.5 Mg/3 Ml Nebu) 2.5 mg IH Q4HRT PRN PRN Reason: Shortness Of Breath Atorvastatin Calcium (Atorvastatin 20 Mg Tab) 20 mg PO QHS [facility] Last Admin: 06/20/21 22:08 Dose: Not Given Gabapentin (Gabapentin 300 Mg Cap) 300 mg PO TID [facility] Last Admin: 06/21/21 09:38 Dose: Not Given Haloperidol (Haloperidol 5 Mg Tab) 5 mg PO Q8H PRN PRN Reason: Psychosis Hydromorphone HCl (Hydromorphone 1 Mg/1 Ml Inj) 0.5 mg IV Q23H PRN PRN Reason: Pain , Severe (7-10) Last Admin: 06/21/21 08:58 Dose: 0.5 mg Lorazepam (Lorazepam 1 Mg Tab) 1 mg PO Q8H PRN PRN Reason: Agitation Lorazepam (Lorazepam 2 Mg/Ml Vial) 1 mg IV Q4H PRN PRN Reason: Anxiety Last Admin: 06/21/21 10:25 Dose: 1 mg Magnesium Oxide (Magnesium Oxide 400 Mg Tab) 400 mg PO QDAY [facility] Last Admin: 06/21/21 09:38 Dose: Not Given Melatonin (Melatonin 5 Mg Tab) 10 mg PO HS [facility] Last Admin: 06/20/21 22:08 Dose: Not Given Metoprolol Tartrate (Metoprolol Tartrate 25 Mg Tab) 12.5 mg PO BID [facility] Last Admin: 06/21/21 09:38 Dose: Not Given Mirtazapine (Mirtazapine 15 Mg Tab) 15 mg PO QHS [facility] Last Admin: 06/20/21 22:07 Dose: Not Given Miscellaneous Medication (Guanfacine Hcl [Guanfacine Hcl Er]) 1 mg PO BID [facility] Ondansetron HCl (Ondansetron 4 Mg/2 Ml Inj) 4 mg IV Q8H PRN PRN Reason: Nausea And Vomiting Last Admin: 06/21/21 08:58 Dose: 4 mg Oxycodone/Acetaminophen (Oxycodone /Acetaminophen 5-325mg Tab) 1 tab PO Q16H PRN PRN Reason: Pain, Moderate (4-6) Pantoprazole Sodium (Pantoprazole 40 Mg Inj) 40 mg IV BID [facility] Last Admin: 06/21/21 11:03 Dose: 40 mg Sodium Chloride (Sodium Chloride 0.9% 10 Ml Flush Syringe) 10 ml IV BID [facility] Last Admin: 06/21/21 09:38 Dose: Not Given Sodium Chloride (Sodium Chloride 0.9% 10 Ml Flush Syringe) 10 ml IV PRN PRN PRN Reason: LINE FLUSH Mental Status Exam - Vital signs Last Vital Signs Temp 98.0 F 06/21/21 11:47 Pulse 93 H 06/21/21 11:47 Resp 24 06/21/21 11:47 BP 126/81 06/21/21 11:47 Pulse Ox 96 06/21/21 11:47 Results Result Diagrams: 06/21/21 10:57 06/20/21 16:02 Abnormal lab results 06/20/21 06/20/21 06/21/21 Range/Units 16:02 16:02 10:57 WBC 15.9 H 11.1 H (4.5-11.0) K/mm3 RBC 5.13 H (3.65-5.03) M/mm3 MCV 83 L 83 L (84-94) fl MCH 27 L 26 L (28-32) pg Delta % (Auto) 9.6 H (0.0-7.3) % Delta # (Auto) 1.1 H (0.0-0.8) K/mm3 Seg Neutrophils % 71.8 H (40.0-70.0) % Seg Neutrophils # 8.0 H (1.8-7.7) K/mm3 Creatinine 0.7 L (0.8-1.3) mg/dL Albumin 3.7 L (3.9-5) g/dL All other labs normal.
--- NOTE | 2021-06-21 14:40 | Nuclear Medicine Report ---
NUCLEAR MEDICINE HEPATOBILIARY SCAN INDICATION / CLINICAL INFORMATION: abd pain - please calculate Ejection Fraction. TECHNIQUE: Radiotracer: Tc-99m mebrofenin (by IV): 5.3 mCi. Gallbladder Stimulant: Ensure (8 ounces by mouth) COMPARISON: None available. FINDINGS: HEPATIC ACTIVITY: Normal. BILIARY ACTIVITY: Normal. GALLBLADDER ACTIVITY: Normal SMALL BOWEL ACTIVITY: Normal GALLBLADDER EJECTION FRACTION % (if calculated): 40 - Normal at 30 min with Cholecystokinin: >35% - Normal at 60 min with Ensure/Glucerna: >33% PATIENT SYMPTOM REPRODUCTION: No symptoms reported.. IMPRESSION: 1. Biliary obstruction: None. 2. Gallbladder ejection fraction: Normal. Signer Name: Gabriel Curry MD Signed: 06/21/2021 2:34 PM Workstation Name: [facility]
--- NOTE | 2021-06-21 15:12 | Post Anesthesia Evaluation ---
- Post Anesthesia Evaluation Patient Participated: Yes Airway Patent: Yes Stable Respiratory Function: Yes Nausea/Vomiting: No Temp > 96.8F: Yes Pain Manageable: Yes Adequeate Hydration: Yes Anesthesia Complications: No Block Receding Appropriately: Not Applicable Patient on Ventilator: No
[2021-06-21] MEDS: MIRTAZAPINE 15 MG TAB PO SCH (21:15)
[2021-06-21] MEDS: MELATONIN 5 MG TAB PO SCH (21:16)
[2021-06-21] MEDS ORDERED: MIRTAZAPINE 15 MG TAB PO SCH (22:00)
[2021-06-21] MEDS ORDERED: NON-FORMULARY EACH (Melatonin [Melatonin 10mg Cap] 10 MG Capsule) PO SCH (22:00)
[2021-06-22] MEDS: ONDANSETRON 4 MG/2 ML INJ IV PRN ×2 (08:13→12:46)
[2021-06-22] MEDS: HYDROmorphone 1 MG/1 ML INJ IV PRN ×3 (08:13→18:03)
[2021-06-22] MEDS: GABAPENTIN 300 MG CAP PO SCH ×3 (08:14→21:56)
[2021-06-22] MEDS: PANTOPRAZOLE 40 MG TAB PO SCH ×2 (08:14→16:59)
[2021-06-22] MEDS: MAGNESIUM OXIDE 400 MG TAB PO SCH (09:09)
[2021-06-22] MEDS: METOPROLOL TARTRATE 25 MG TAB PO SCH ×2 (09:09→22:10)
--- NOTE | 2021-06-22 10:12 | Progress Note ---
Assessment and Plan Assessment and plan: 36 YO Male with HTN, Obesity Hypoventilation Syndrome, GERD, Neuropathy, Psychosis NOS presents ED for evaluation of hematemesis with 3-4 episodes of vomiting of blood over the past 3 days. Patient states his symptoms have been accompanied by abdominal discomfort. The patient was seen and evaluated in the emergency department. All lab and imaging studies reviewed. Patient had a witnessed episode of hematemesis while in the emergency department. GI team was consulted. UGIB/hematemesis Esophagitis induced hematemesis Abdominal pain Hypertension Obesity hypoventilation syndrome Psychosis GERD 06/21/2021. The patient underwent EGD which revealed minimal gastritis throughout the stomach. Patient also had a 5 mm single sessile benign-appearing gastric polyp in the gastric body. The patient also had localized area of esophagitis at the GE junction with overlying blood. This appeared to be related to simple esophagitis with no evidence of Arminda-Cobian tear. Continue PPI twice daily. We will also perform HIDA scan with ejection fraction to rule out biliary dyskinesia as potential etiology for patient's abdominal pain. GI following. Psych has been consulted for patient's history of psychosis. Resume home psych medications History Interval history: I have seen and examined patient at bedside Patient's chart and medications reviewed Patient is on 1013 status Continues to have suicidal thoughts or ideation Hospitalist Physical - Constitutional Vitals: Temp Pulse Resp BP Pulse Ox 98.1 F 100 H 18 102/66 98 06/22/21 04:33 06/22/21 09:50 06/22/21 04:33 06/22/21 04:33 06/22/21 09:50 General appearance: Present: no acute distress, obese - EENT Eyes: Present: PERRL, EOM intact - Neck Neck: Present: supple, normal ROM - Respiratory Respiratory effort: normal Respiratory: bilateral: diminished, negative: rales, rhonchi, wheezing - Cardiovascular Rhythm: regular Heart Sounds: Present: S1 & S2 - Extremities Extremities: no ischemia, No edema - Abdominal General gastrointestinal: soft, non-tender, non-distended, normal bowel sounds - Integumentary Integumentary: Present: clear, warm - Psychiatric Psychiatric: appropriate mood/affect, cooperative - Neurologic Neurologic: moves all extremities Results - Labs CBC & Chem 7: 06/28/21 18:51 06/20/21 16:02 Labs: Laboratory Last Values WBC 11.1 K/mm3 (4.5-11.0) H 06/21/21 10:57 RBC 5.13 M/mm3 (3.65-5.03) H 06/21/21 10:57 Hgb 13.5 gm/dl (11.8-15.2) 06/21/21 10:57 Hct 42.7 % (35.5-45.6) 06/21/21 10:57 MCV 83 fl (84-94) L 06/21/21 10:57 MCH 26 pg (28-32) L 06/21/21 10:57 MCHC 32 % (32-34) 06/21/21 10:57 RDW 14.8 % (13.2-15.2) 06/21/21 10:57 Plt Count 291 K/mm3 (140-440) 06/21/21 10:57 Lymph % (Auto) 16.6 % (13.4-35.0) 06/21/21 10:57 [place] % (Auto) 9.6 % (0.0-7.3) H 06/21/21 10:57 Eos % (Auto) 1.6 % (0.0-4.3) 06/21/21 10:57 Baso % (Auto) 0.4 % (0.0-1.8) 06/21/21 10:57 Lymph # (Auto) 1.8 K/mm3 (1.2-5.4) 06/21/21 10:57 [place] # (Auto) 1.1 K/mm3 (0.0-0.8) H 06/21/21 10:57 Eos # (Auto) 0.2 K/mm3 (0.0-0.4) 06/21/21 10:57 Baso # (Auto) 0.0 K/mm3 (0.0-0.1) 06/21/21 10:57 Seg Neutrophils % 71.8 % (40.0-70.0) H 06/21/21 10:57 Seg Neutrophils # 8.0 K/mm3 (1.8-7.7) H 06/21/21 10:57 PT 13.0 Sec. (12.2-14.9) 06/20/21 16:02 INR 0.89 (0.87-1.13) 06/20/21 16:02 APTT 25.4 Sec. (24.2-36.6) 06/20/21 16:02 Sodium 139 mmol/L (137-145) 06/20/21 16:02 Potassium 4.1 mmol/L (3.6-5.0) 06/20/21 16:02 Chloride 102.8 mmol/L (98-107) 06/20/21 16:02 Carbon Dioxide 27 mmol/L (22-30) 06/20/21 16:02 Anion Gap 13 mmol/L 06/20/21 16:02 BUN 10 mg/dL (9-20) 06/20/21 16:02 Creatinine 0.7 mg/dL (0.8-1.3) L 06/20/21 16:02 Estimated GFR > 60 ml/min 06/20/21 16:02 BUN/Creatinine Ratio 14 % 06/20/21 16:02 Glucose 91 mg/dL (75-100) 06/20/21 16:02 Lactic Acid 1.60 mmol/L (0.7-2.0) 06/20/21 16:02 Calcium 8.4 mg/dL (8.4-10.2) 06/20/21 16:02 Magnesium 2.10 mg/dL (1.7-2.3) 06/20/21 16:02 Total Bilirubin 0.30 mg/dL (0.1-1.2) 06/20/21 16:02 AST 16 units/L (5-40) 06/20/21 16:02 ALT 28 units/L (7-56) 06/20/21 16:02 Alkaline Phosphatase 110 units/L (35-129) 06/20/21 16:02 Total Protein 6.9 g/dL (6.3-8.2) 06/20/21 16:02 Albumin 3.7 g/dL (3.9-5) L 06/20/21 16:02 Albumin/Globulin Ratio 1.2 % 06/20/21 16:02 Lipase 13 units/L (13-60) 06/20/21 16:02 Blood Type A POSITIVE 06/20/21 15:07 Antibody Screen Negative 06/20/21 15:07 Mann/IV: Voiding Method Toilet Active Medications - Current Medications Current Medications: Generic Name Dose Route Start Last Admin Trade Name Freq PRN Reason Stop Dose Admin Acetaminophen 650 mg 06/20/21 19:08 Acetaminophen 325 Mg Tab PO Q4H PRN Pain MILD(1-3)/Fever >100.5/ALFREDO Albuterol 2.5 mg 06/20/21 19:08 Albuterol 2.5 Mg/3 Ml Nebu IH Q4HRT PRN Shortness Of Breath Atorvastatin Calcium 20 mg 06/20/21 22:00 06/21/21 21:15 Atorvastatin 20 Mg Tab PO 20 mg QHS KRYSTYNA Administration Gabapentin 300 mg 06/20/21 20:00 06/22/21 08:14 Gabapentin 300 Mg Cap PO 300 mg TID KRYSTYNA Administration Haloperidol 5 mg 06/21/21 09:30 Haloperidol 5 Mg Tab PO Q8H PRN Psychosis Hydromorphone HCl 0.5 mg 06/20/21 19:08 06/22/21 08:13 Hydromorphone 1 Mg/1 Ml Inj IV 0.5 mg Q23H PRN Administration Pain , Severe (7-10) Lorazepam 1 mg 06/21/21 09:55 06/21/21 10:25 Lorazepam 2 Mg/Ml Vial IV 1 mg Q4H PRN Administration Anxiety Magnesium Oxide 400 mg 06/21/21 10:00 06/22/21 09:09 Magnesium Oxide 400 Mg Tab PO 400 mg QDAY KRYSTYNA Administration Melatonin 10 mg 06/20/21 22:00 06/21/21 21:16 Melatonin 5 Mg Tab PO 10 mg HS [facility] Administration Metoprolol Tartrate 12.5 mg 06/20/21 22:00 06/22/21 09:09 Metoprolol Tartrate 25 Mg Tab PO 12.5 mg BID KRYSTYNA Administration Mirtazapine 15 mg 06/20/21 22:00 06/21/21 21:15 Mirtazapine 15 Mg Tab PO 15 mg QHS KRYSTYNA Administration Miscellaneous Medication 1 mg 06/21/21 10:00 Guanfacine Hcl [Guanfacine Hcl Er] PO BID KRY[facility]YNA Ondansetron HCl 4 mg 06/20/21 19:23 06/22/21 08:13 Ondansetron 4 Mg/2 Ml Inj IV 4 mg Q8H PRN Administration Nausea And Vomiting Oxycodone/Acetaminophen 1 tab 06/20/21 19:08 Oxycodone /Acetaminophen 5-325mg Tab PO Q16H PRN Pain, Moderate (4-6) Pantoprazole Sodium 40 mg 06/22/21 07:30 06/22/21 08:14 Pantoprazole 40 Mg Tab PO 40 mg BIDAC KRYSTYNA Administration Sodium Chloride 10 ml 06/20/21 22:00 06/22/21 09:10 Sodium Chloride 0.9% 10 Ml Flush Syringe IV 10 ml BID KRYSTYNA Administration Sodium Chloride 10 ml 06/20/21 19:08 Sodium Chloride 0.9% 10 Ml Flush Syringe IV PRN PRN LINE FLUSH Nutrition/Malnutrition Assess - Dietary Evaluation Nutrition/Malnutrition Findings: Nutrition Notes Start: 06/21/21 15:26 Freq: Status: Active Protocol: Document 06/21/21 15:26 ANDREA (Rec: 06/21/21 16:00 ANDREA [id number]) Nutrition Notes Current Diagnosis Hypertension Other Pertinent Diagnosis OHS, GERD, GI Bleed, Psychosis . Current Diet GI Soft Diet (since B 06/21). Labs/Tests 06/21: Crea 0.7. Pertinent Medications 06/21: Nutritionally unremarkable. Height 5 ft 9 in Weight 127.3 kg [place] Body Weight (kg) 72.72 BMI 41.4 Intake Prior to Admission Good Weight change and time frame Pt denies having loss body weight [employer]. 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 No reports available on Pt's PO intake of meals at the time , will assess at F/U. Pt on Room Air, O2 saturation @ 98%, according to Physical Assessment History notes. Pt presented hematemesis at admission, according to History & Physical notes. Pt show no signs of concern for skin risk at the time, according to Physical Assessment History notes. 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 Percent of energy/protein needs met: Prescribed GI Soft Diet provides for energy/protein needs (2,000 Kcal/82 g) during LOS. Burn Absent Trauma Absent GI Symptoms Nausea,Vomiting,Other Food Allergy No Skin Integrity/Comment Assessment WNL. Minimum of two criteria No #1 Nutrition Diagnosis Altered GI function Etiology GERD. 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 Is patient on ventilator? No Is Patient Ambulatory and/or Out of Bed Yes [facility] [ 2851.394 [id number]] Kcal/Kg value to use for calculation 15 Approximate Energy Requirements Using 1910 kcal/Kg Calculation Used for Recommendations Kcal/kg Additional Notes Protein: 0.8-1 g/Kg AdjBW; 80- 100 g/day. Fluids: 1 ml/Kcal, or as per MD. Nutrition Intervention Change Diet Order: Continue GI Soft diet, as tolerated; when pertinent, advance towards Regular Diet. Goal #1 Adjust the dietary intervention to better serve Pt's needs and clinical conditions during LOS. Goal #2 Facilitate PO intake of meals with elemental, textural, or mechanical modification during LOS. Goal #3 Maintain body weight within +/ -3% of admission body weight during LOS. Follow-Up By: 06/24/21 Additional Comments Continue monitoring food tolerance, %PO intake of meals , and BM.
--- NOTE | 2021-06-22 10:55 | Gastroenterology Progress Note ---
<LISSETTE ZAMBRANO - Last Filed: 06/22/21 10:50> Assessment and Plan 1. N/V -will start Ativan 0.5mg IV BID for n/v -can continue Zofran as needed 2. RUQ pain -consult surgery for biliary diskinesia as evidenced by reproduced RUQ pain during HIDA with CCK Subjective Date of service: 06/22/21 Interval history: Pt seen and examined. Laying comfortably in bed. Pt reports x1 episode of bloody emesis this a.m when he woke up and x3 episodes yesterday. Pt c/o nausea that is better with Zofran. Pt states that he has little appetite today, but was able to eat a pancake and eggs this a.m. w/o vomiting after. Denies having a BM since admission. Reports RUQ pain that comes and goes and is worse with movement and is alleviated with laying flat. Pt reports that during his HIDA scan yesterday, he had severe RUQ pain when he drank the Ensure. Objective - Constitutional Vitals: Temp Pulse Resp BP Pulse Ox 98.1 F 100 H 18 102/66 98 06/22/21 04:33 06/22/21 09:50 06/22/21 04:33 06/22/21 04:33 06/22/21 09:50 General appearance: no acute distress - EENT Eyes: PERRL, EOM intact ENT: hearing intact - Respiratory Respiratory effort: normal - Cardiovascular Rhythm: regular - Extremities Extremities: No edema - Gastrointestinal General gastrointestinal: Present: soft, tender, distended Rectal Exam: deferred - Integumentary Integumentary: Present: clear, warm, dry - Neurologic Neurological: alert and oriented x3 - Psychiatric Psychiatric: appropriate mood/affect, intact judgment & insight, memory intact, cooperative - Labs CBC & Chem 7: 06/21/21 10:57 06/20/21 16:02 Labs: Laboratory Results - last 24 hr 06/21/21 10:57 WBC 11.1 H RBC 5.13 H Hgb 13.5 Hct 42.7 MCV 83 L MCH 26 L MCHC 32 RDW 14.8 Plt Count 291 Lymph % (Auto) 16.6 [place] % (Auto) 9.6 H Eos % (Auto) 1.6 Baso % (Auto) 0.4 Lymph # (Auto) 1.8 [place] # (Auto) 1.1 H Eos # (Auto) 0.2 Baso # (Auto) 0.0 Seg Neutrophils % 71.8 H Seg Neutrophils # 8.0 H <TRA GALEANA - Last Filed: 06/22/21 18:21> Assessment and Plan Patient seen and examined. Continues to complain of vomiting with blood in emesis. Hemoglobin however is stable. There is no melena, as patient is constipated. Also complains of ongoing problems with right upper quadrant pain that is intermittent. On exam, he has tenderness in the right upper quadrant. -Dr. Latham consulted for possible cholecystectomy Objective - Constitutional Vitals: Temp Pulse Resp BP Pulse Ox 98.1 F 97 H 18 125/88 99 06/22/21 16:02 06/22/21 16:02 06/22/21 16:02 06/22/21 16:02 06/22/21 16:02 - Labs CBC & Chem 7: 06/21/21 10:57 06/20/21 16:02
--- NOTE | 2021-06-22 10:59 | Progress Note ---
Subjective - Reason for Consult Consult date: 06/22/21 Reason for consult: Schizophrenia - Chief Complaint Chief complaint: The patient was seen this morning. he is calm, alert and oriented x3. He reports that he was admitted at [facility] for suicidal ideation and medication noncompliance. The patient reports feeling anxious " I keep throwing up blood," he also reports recent stressor such as relationship issue. He endorses intermittent auditory hallucinations. PAST PSYCHIATRIC HISTORY: Diagnoses: Schizophrenia, Bipolar Suicide attempts or Self-harm behavior: Yes Prior psychiatric hospitalizations: Yes Substance Abuse history: marijuana Previous psychiatric medications tried: unable to recall Outpatient treatment: Unknown PAST MEDICAL HISTORY: None reported or document Family Psychiatric History: None reported or documented SOCIAL HISTORY Marital Status: Single Living Arrangements: Homeless Employment Status: Unemployed Access to guns/weapons: Denies Education:9th grade History of Abuse: Denies Legal History: Denies REVIEW OF SYSTEMS Constitutional: Negative for weight loss ENT: Negative for stridor Respiratory: Negative for cough or hemoptysis All other systems reviewed and are negative MENTAL STATUS EXAMINATION General Appearance and Behavior: Age appropriate, wearing appropriate clothes, cooperative, polite with questioning, good eye contact, calm, polite Cooperation: cooperative Psychomotor Behavior: Psychomotor normal Mood: anxious/ depressed Affect and affective range: Congruent with stated mood Thought Process: Goal directed Thought Content:Reality oriented Speech: Normal volume, Regular rate and rhythm Suicidal Ideation: Intermittent Homicidal Ideation: Denies Hallucination: Intermittent Delusions: None elicited Impulse Control: limited Insight and Judgment: Limited Memory: Intact Attention: attentive Orientation: Alert and oriented Diagnoses: Schizophrenia Treatment Plan 1013 Continue home meds Start Haldol 10mg po BID PSYCHOTHERAPY: Supportive psychotherapy provided MEDICAL: Per primary team DELIRIUM PRECAUTIONS: Please re-orient patient frequently, keep lights on during the day, and minimize benzodiazepines and opiates as these medications could worsen patient's confusion. RN FIELD: Per medical team DISPOSITION: Recommend acute psychiatric inpatient treatment. Will follow. Thank you for the consult. Case staffed with Dr. Sanchez Medications and Allergies Mental Status Exam - Vital signs Last Vital Signs Temp 98.1 F 06/22/21 04:33 Pulse 100 H 06/22/21 09:50 Resp 18 06/22/21 04:33 BP 102/66 06/22/21 04:33 Pulse Ox 98 06/22/21 09:50
[2021-06-22] MEDS: HALOPERIDOL 5 MG TAB PO SCH ×3 (12:46→21:58)
[2021-06-22] MEDS ORDERED: METOCLOPRAMIDE 10 MG/2 ML INJ IV PRN (15:17)
[2021-06-22] MEDS: MAGNESIUM HYDROXIDE (MOM) ORAL LIQD UDC PO PRN (18:03)
[2021-06-22] MEDS: MELATONIN 5 MG TAB PO SCH (21:55)
[2021-06-22] MEDS: MIRTAZAPINE 15 MG TAB PO SCH (21:56)
[2021-06-23] MEDS: PANTOPRAZOLE 40 MG TAB PO SCH ×2 (08:24→17:29)
[2021-06-23] MEDS: GABAPENTIN 300 MG CAP PO SCH ×3 (08:24→20:59)
--- NOTE | 2021-06-23 10:01 | Progress Note ---
Assessment and Plan Assessment and plan: 36 YO Male with HTN, Obesity Hypoventilation Syndrome, GERD, Neuropathy, Psychosis NOS presents ED for evaluation of hematemesis with 3-4 episodes of vomiting of blood over the past 3 days. Patient states his symptoms have been accompanied by abdominal discomfort. The patient was seen and evaluated in the emergency department. All lab and imaging studies reviewed. Patient had a witnessed episode of hematemesis while in the emergency department. GI team was consulted. UGIB/hematemesis Esophagitis induced hematemesis Abdominal pain Hypertension Obesity hypoventilation syndrome Psychosis/1013 status GERD 06/21/2021. The patient underwent EGD which revealed minimal gastritis throughout the stomach. Patient also had a 5 mm single sessile benign-appearing gastric polyp in the gastric body. The patient also had localized area of esophagitis at the GE junction with overlying blood. This appeared to be related to simple esophagitis with no evidence of [place]-Cobian tear. Continue PPI twice daily. We will also perform HIDA scan with ejection fraction to rule out biliary dyskinesia as potential etiology for patient's abdominal pain. GI following. Psych has been consulted for patient's history of psychosis. Resume home psych medications History Interval history: I have seen and examined the patient at the bedside Patient's chart and medications reviewed Patient continues to have suicidal thoughts and ideation 1013 status Patient has no new complaints Hospitalist Physical - Constitutional Vitals: Temp Pulse Resp BP Pulse Ox 98.1 F 89 18 115/77 94 06/23/21 04:56 06/23/21 04:56 06/23/21 04:56 06/23/21 04:56 06/23/21 04:56 General appearance: Present: no acute distress, obese - EENT Eyes: Present: PERRL, EOM intact - Neck Neck: Present: supple, normal ROM - Respiratory Respiratory effort: normal Respiratory: bilateral: diminished, negative: rhonchi, wheezing - Cardiovascular Rhythm: regular Heart Sounds: Present: S1 & S2 - Extremities Extremities: no ischemia, No edema - Abdominal General gastrointestinal: soft, non-tender, non-distended, normal bowel sounds - Integumentary Integumentary: Present: clear, warm - Psychiatric Psychiatric: appropriate mood/affect, cooperative - Neurologic Neurologic: moves all extremities Results - Labs CBC & Chem 7: 06/28/21 18:51 06/20/21 16:02 Labs: Laboratory Last Values WBC 11.1 K/mm3 (4.5-11.0) H 06/21/21 10:57 RBC 5.13 M/mm3 (3.65-5.03) H 06/21/21 10:57 Hgb 13.5 gm/dl (11.8-15.2) 06/21/21 10:57 Hct 42.7 % (35.5-45.6) 06/21/21 10:57 MCV 83 fl (84-94) L 06/21/21 10:57 MCH 26 pg (28-32) L 06/21/21 10:57 MCHC 32 % (32-34) 06/21/21 10:57 RDW 14.8 % (13.2-15.2) 06/21/21 10:57 Plt Count 291 K/mm3 (140-440) 06/21/21 10:57 Lymph % (Auto) 16.6 % (13.4-35.0) 06/21/21 10:57 [place] % (Auto) 9.6 % (0.0-7.3) H 06/21/21 10:57 Eos % (Auto) 1.6 % (0.0-4.3) 06/21/21 10:57 Baso % (Auto) 0.4 % (0.0-1.8) 06/21/21 10:57 Lymph # (Auto) 1.8 K/mm3 (1.2-5.4) 06/21/21 10:57 [place] # (Auto) 1.1 K/mm3 (0.0-0.8) H 06/21/21 10:57 Eos # (Auto) 0.2 K/mm3 (0.0-0.4) 06/21/21 10:57 Baso # (Auto) 0.0 K/mm3 (0.0-0.1) 06/21/21 10:57 Seg Neutrophils % 71.8 % (40.0-70.0) H 06/21/21 10:57 Seg Neutrophils # 8.0 K/mm3 (1.8-7.7) H 06/21/21 10:57 PT 13.0 Sec. (12.2-14.9) 06/20/21 16:02 INR 0.89 (0.87-1.13) 06/20/21 16:02 APTT 25.4 Sec. (24.2-36.6) 06/20/21 16:02 Sodium 139 mmol/L (137-145) 06/20/21 16:02 Potassium 4.1 mmol/L (3.6-5.0) 06/20/21 16:02 Chloride 102.8 mmol/L (98-107) 06/20/21 16:02 Carbon Dioxide 27 mmol/L (22-30) 06/20/21 16:02 Anion Gap 13 mmol/L 06/20/21 16:02 BUN 10 mg/dL (9-20) 06/20/21 16:02 Creatinine 0.7 mg/dL (0.8-1.3) L 06/20/21 16:02 Estimated GFR > 60 ml/min 06/20/21 16:02 BUN/Creatinine Ratio 14 % 06/20/21 16:02 Glucose 91 mg/dL (75-100) 06/20/21 16:02 Lactic Acid 1.60 mmol/L (0.7-2.0) 06/20/21 16:02 Calcium 8.4 mg/dL (8.4-10.2) 06/20/21 16:02 Magnesium 2.10 mg/dL (1.7-2.3) 06/20/21 16:02 Total Bilirubin 0.30 mg/dL (0.1-1.2) 06/20/21 16:02 AST 16 units/L (5-40) 06/20/21 16:02 ALT 28 units/L (7-56) 06/20/21 16:02 Alkaline Phosphatase 110 units/L (35-129) 06/20/21 16:02 Total Protein 6.9 g/dL (6.3-8.2) 06/20/21 16:02 Albumin 3.7 g/dL (3.9-5) L 06/20/21 16:02 Albumin/Globulin Ratio 1.2 % 06/20/21 16:02 Lipase 13 units/L (13-60) 06/20/21 16:02 Blood Type A POSITIVE 06/20/21 15:07 Antibody Screen Negative 06/20/21 15:07 Mann/IV: Voiding Method Toilet Active Medications - Current Medications Current Medications: Generic Name Dose Route Start Last Admin Trade Name Freq PRN Reason Stop Dose Admin Acetaminophen 650 mg 06/20/21 19:08 Acetaminophen 325 Mg Tab PO Q4H PRN Pain MILD(1-3)/Fever >100.5/ALFREDO Albuterol 2.5 mg 06/20/21 19:08 Albuterol 2.5 Mg/3 Ml Nebu IH Q4HRT PRN Shortness Of Breath Atorvastatin Calcium 20 mg 06/20/21 22:00 06/22/21 21:56 Atorvastatin 20 Mg Tab PO 20 mg QHS KRYSTYNA Administration Gabapentin 300 mg 06/20/21 20:00 06/23/21 08:24 Gabapentin 300 Mg Cap PO Not Given TID KRYSTYNA Haloperidol 10 mg 06/22/21 12:00 06/22/21 21:58 Haloperidol 5 Mg Tab PO Not Given BID KRYSTYNA Hydromorphone HCl 0.5 mg 06/20/21 19:08 06/22/21 18:03 Hydromorphone 1 Mg/1 Ml Inj IV 0.5 mg Q23H PRN Administration Pain , Severe (7-10) Lorazepam 1 mg 06/21/21 09:55 06/21/21 10:25 Lorazepam 2 Mg/Ml Vial IV 1 mg Q4H PRN Administration Anxiety Magnesium Hydroxide 30 ml 06/22/21 17:27 06/22/21 18:03 Magnesium Hydroxide (Mom) Oral Liqd Udc PO 30 ml ONCE PRN Administration Constipation Magnesium Oxide 400 mg 06/21/21 10:00 06/22/21 09:09 Magnesium Oxide 400 Mg Tab PO 400 mg QDAY KRYSTYNA Administration Melatonin 10 mg 06/20/21 22:00 06/22/21 21:55 Melatonin 5 Mg Tab PO 10 mg HS KRYSTYNA Administration Metoclopramide HCl 5 mg 06/22/21 15:17 06/22/21 18:03 Metoclopramide 10 Mg/2 Ml Inj IV 5 mg Q8H PRN Administration Vomiting Metoprolol Tartrate 12.5 mg 06/20/21 22:00 06/22/21 22:10 Metoprolol Tartrate 25 Mg Tab PO Not Given BID KRYSTYNA Mirtazapine 15 mg 06/20/21 22:00 06/22/21 21:56 Mirtazapine 15 Mg Tab PO 15 mg QHS KRYSTYNA Administration Miscellaneous Medication 1 mg 06/21/21 10:00 Guanfacine Hcl [Guanfacine Hcl Er] PO BID KRYSTYNA Ondansetron HCl 4 mg 06/20/21 19:23 06/22/21 12:46 Ondansetron 4 Mg/2 Ml Inj IV 4 mg Q8H PRN Administration Nausea And Vomiting Oxycodone/Acetaminophen 1 tab 06/20/21 19:08 Oxycodone /Acetaminophen 5-325mg Tab PO Q16H PRN Pain, Moderate (4-6) Pantoprazole Sodium 40 mg 06/22/21 07:30 06/23/21 08:24 Pantoprazole 40 Mg Tab PO Not Given BIDAC KRYSTYNA Sodium Chloride 10 ml 06/20/21 22:00 06/22/21 21:56 Sodium Chloride 0.9% 10 Ml Flush Syringe IV 10 ml BID KRYSTYNA Administration Sodium Chloride 10 ml 06/20/21 19:08 Sodium Chloride 0.9% 10 Ml Flush Syringe IV PRN PRN LINE FLUSH Nutrition/Malnutrition Assess - Dietary Evaluation Nutrition/Malnutrition Findings: Nutrition Notes Start: 06/21/21 15:26 Freq: Status: Active Protocol: Document 06/21/21 15:26 ANDREA (Rec: 06/21/21 16:00 ANDREA [id number]) Nutrition Notes Current Diagnosis Hypertension Other Pertinent Diagnosis OHS, GERD, GI Bleed, Psychosis . Current Diet GI Soft Diet (since B 06/21). Labs/Tests 06/21: Crea 0.7. Pertinent Medications 06/21: Nutritionally unremarkable. 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 No reports available on Pt's PO intake of meals at the time , will assess at F/U. Pt on Room Air, O2 saturation @ 98%, according to Physical Assessment History notes. Pt presented hematemesis at admission, according to History & Physical notes. Pt show no signs of concern for skin risk at the time, according to Physical Assessment History notes. 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 Percent of energy/protein needs met: Prescribed GI Soft Diet provides for energy/protein needs (2,000 Kcal/82 g) during LOS. Burn Absent Trauma Absent GI Symptoms Nausea,Vomiting,Other Food Allergy No Skin Integrity/Comment Assessment WNL. Minimum of two criteria No #1 Nutrition Diagnosis Altered GI function Etiology GERD. 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 Is patient on ventilator? No Is Patient Ambulatory and/or Out of Bed Yes REE-([place]-St. Jeor-ambulatory/OOB) [ 2851.394 NUTR.MSJOOB] Kcal/Kg value to use for calculation 15 Approximate Energy Requirements Using 1910 kcal/Kg Calculation Used for Recommendations Kcal/kg Additional Notes Protein: 0.8-1 g/Kg AdjBW; 80- 100 g/day. Fluids: 1 ml/Kcal, or as per MD. Nutrition Intervention Change Diet Order: Continue GI Soft diet, as tolerated; when pertinent, advance towards Regular Diet. Goal #1 Adjust the dietary intervention to better serve Pt's needs and clinical conditions during LOS. Goal #2 Facilitate PO intake of meals with elemental, textural, or mechanical modification during LOS. Goal #3 Maintain body weight within +/ -3% of admission body weight during LOS. Follow-Up By: 06/24/21 Additional Comments Continue monitoring food tolerance, %PO intake of meals , and BM.
[2021-06-23] MEDS: METOPROLOL TARTRATE 25 MG TAB PO SCH ×2 (10:23→21:11)
[2021-06-23] MEDS: HALOPERIDOL 5 MG TAB PO SCH ×2 (10:25→21:00)
--- NOTE | 2021-06-23 10:26 | Gastroenterology Progress Note ---
<LISSETTE ZAMBRANO - Last Filed: 06/23/21 10:27> Assessment and Plan 1. RUQ pain - surgery to remove gallbladder d/t biliary diskinesia as evidenced by reproduced RUQ pain during HIDA with CCK - H/H stable - GI to sign off Subjective Date of service: 06/23/21 Interval history: Pt seen and examined. Laying comfortably in bed. No new complaints since yesterday. Waiting on cholecystectomy for biliary dyskinesia as evidenced by HIDA with CCK. GI will sign off. Objective - Constitutional Vitals: Temp Pulse Resp BP Pulse Ox 98.1 F 89 18 115/77 94 06/23/21 04:56 06/23/21 04:56 06/23/21 04:56 06/23/21 04:56 06/23/21 04:56 General appearance: no acute distress - EENT Eyes: PERRL, EOM intact ENT: hearing intact, clear oral mucosa, dentition normal - Neck Neck: supple, normal ROM - Respiratory Respiratory effort: normal - Cardiovascular Rhythm: regular - Extremities Extremities: No edema - Gastrointestinal General gastrointestinal: Present: soft, tender - Integumentary Integumentary: Present: clear, warm, dry - Neurologic Neurological: alert and oriented x3 - Psychiatric Psychiatric: appropriate mood/affect, intact judgment & insight, memory intact, cooperative - Labs CBC & Chem 7: 06/21/21 10:57 06/20/21 16:02 <TRA GALEANA - Last Filed: 06/23/21 14:00> Assessment and Plan Patient in OR. Plan as noted. We will sign off Keep patient on chronic PPI, for peptic ulcer disease. Follow-up as outpatient in 1 to 2 months Objective - Constitutional Vitals: Temp Pulse Resp BP Pulse Ox 97.9 F 91 H 16 138/84 96 06/23/21 13:01 06/23/21 13:30 06/23/21 13:30 06/23/21 13:30 06/23/21 13:30 - Labs CBC & Chem 7: 06/21/21 10:57 06/20/21 16:02
[2021-06-23] MEDS ORDERED: LIDOCAINE (1%) 10 MG/1 ML VIAL 20 ML MDV ONE (10:45)
[2021-06-23] MEDS ORDERED: BUPIVACAINE/PF (0.5%) 5 MG/1 ML 30 ML VIAL INFILTRATI ONE ×2 (10:46→12:22)
--- NOTE | 2021-06-23 10:47 | Anesthesia Day of Surgery ---
Anesthesia Day of Surgery - Day of Surgery Patient Examined: Yes Patient H&P Reviewed: Yes Patient is NPO: Yes
[2021-06-23] MEDS ORDERED: ROCURONIUM 50 MG/5 ML INJ IV ONE ×2 (10:53→12:58)
[2021-06-23] MEDS ORDERED: propofoL 200 MG/20 ML VIAL IV ONE (10:53)
[2021-06-23] MEDS ORDERED: HYDROmorphone 1 MG/1 ML INJ ONE (10:53)
[2021-06-23] MEDS ORDERED: LIDOCAINE MPF (2%) 20 MG/1 ML VIAL 5 ML ONE (10:55)
--- NOTE | 2021-06-23 11:17 | Consultation ---
History of Present Illness Consult date: 06/23/21 Reason for consult: abdominal pain Chief complaint: abd pain - History of present illness History of present illness: 36-year-old male with history of hypertension and obesity who presented to the hospital with 1 week of intermittent right upper quadrant abdominal pain, nausea, vomiting. The patient states that the pain has been ongoing for about a month but in the last week he has started to experience increasing nausea and was vomiting blood. He states that the pain is intermittent and sharp. He does not know if it is associated with any specific type of food intake. He has never had pain like this in the past. The pain is localized to the right upper quadrant and does not radiate. The patient was evaluated by gastroenterology service. He underwent an EGD which showed esophagitis and gastritis. The patient has had an abdominal ultrasound, CT abdomen and pelvis, and HIDA scan with EF. Ultrasound revealed a contracted gallbladder with sludge but no evidence of cholecystitis. HIDA scan showed a normal gallbladder ejection fraction and no evidence of biliary obstruction however the patient's symptoms were reproduced after drinking Ensure. Surgery is consulted for evaluation for cholecystectomy. Patient also complains of constipation. Past History Past Medical History: hypertension, other (See HPI) Past Surgical History: No surgical history, Other (Reviewed) Social history: single. denies: smoking, alcohol abuse, prescription drug abuse Family history: hypertension Medications and Allergies Allergies Allergy/AdvReac Type Severity Reaction Status Date / Time sulfamethoxazole Allergy Swelling Verified 06/20/21 14:46 [From Bactrim] trimethoprim [From Bactrim] Allergy Swelling Verified 06/20/21 14:46 Home Medications Medication Instructions Recorded Confirmed Last Taken Type AtorvaSTATin 20 mg PO HS 06/20/21 06/20/21 1 Day Ago History ~06/19/21 Famotidine [Acid Controller] 20 mg PO BID 06/20/21 06/20/21 1 Day Ago History ~06/19/21 Gabapentin 300 mg PO TID 06/20/21 06/20/21 1 Day Ago History ~06/19/21 Magnesium Oxide 400 400 mg PO HS 06/20/21 06/20/21 1 Day Ago History ~06/19/21 Melatonin 10 mg PO HS 06/20/21 06/20/21 1 Day Ago History ~06/19/21 Metoprolol 12.5 mg PO BID 06/20/21 06/20/21 1 Day Ago History ~06/19/21 Mirtazapine 15 mg PO HS 06/20/21 06/20/21 1 Day Ago History ~06/19/21 guanFACINE (NF) 1 mg PO BID 06/20/21 06/20/21 1 Day Ago History ~06/19/21 Guanfacine HCl [Guanfacine HCl ER] 1 mg PO BID 06/21/21 06/21/21 Unknown History LORazepam [Lorazepam] 1 mg PO Q8H PRN 06/21/21 06/21/21 Unknown History Melatonin [Melatonin 10MG CAP] 10 mg PO QHS 06/21/21 06/21/21 Unknown History Mirtazapine [Remeron] 15 mg PO QHS 06/21/21 06/21/21 Unknown History haloperidoL [Haloperidol] 5 mg PO Q8H PRN 06/21/21 06/21/21 Unknown History Active Meds: Active Medications Acetaminophen (Acetaminophen 325 Mg Tab) 650 mg PO Q4H PRN PRN Reason: Pain MILD(1-3)/Fever >100.5/ALFREDO Albuterol (Albuterol 2.5 Mg/3 Ml Nebu) 2.5 mg IH Q4HRT PRN PRN Reason: Shortness Of Breath Atorvastatin Calcium (Atorvastatin 20 Mg Tab) 20 mg PO QHS [facility] Last Admin: 06/22/21 21:56 Dose: 20 mg Gabapentin (Gabapentin 300 Mg Cap) 300 mg PO TID [facility] Last Admin: 06/23/21 08:24 Dose: Not Given Haloperidol (Haloperidol 5 Mg Tab) 10 mg PO BID [facility] Last Admin: 06/23/21 10:25 Dose: Not Given Hydromorphone HCl (Hydromorphone 1 Mg/1 Ml Inj) 0.5 mg IV Q23H PRN PRN Reason: Pain , Severe (7-10) Last Admin: 06/22/21 18:03 Dose: 0.5 mg Lorazepam (Lorazepam 2 Mg/Ml Vial) 1 mg IV Q4H PRN PRN Reason: Anxiety Last Admin: 06/21/21 10:25 Dose: 1 mg Magnesium Hydroxide (Magnesium Hydroxide (Mom) Oral Liqd Udc) 30 ml PO ONCE PRN PRN Reason: Constipation Last Admin: 06/22/21 18:03 Dose: 30 ml Magnesium Oxide (Magnesium Oxide 400 Mg Tab) 400 mg PO QDAY [facility] Last Admin: 06/22/21 09:09 Dose: 400 mg Melatonin (Melatonin 5 Mg Tab) 10 mg PO HS [facility] Last Admin: 06/22/21 21:55 Dose: 10 mg Metoclopramide HCl (Metoclopramide 10 Mg/2 Ml Inj) 5 mg IV Q8H PRN PRN Reason: Vomiting Last Admin: 06/22/21 18:03 Dose: 5 mg Metoprolol Tartrate (Metoprolol Tartrate 25 Mg Tab) 12.5 mg PO BID [facility] Last Admin: 06/22/21 22:10 Dose: Not Given Mirtazapine (Mirtazapine 15 Mg Tab) 15 mg PO QHS [facility] Last Admin: 06/22/21 21:56 Dose: 15 mg Miscellaneous Medication (Guanfacine Hcl [Guanfacine Hcl Er]) 1 mg PO BID [facility] Ondansetron HCl (Ondansetron 4 Mg/2 Ml Inj) 4 mg IV Q8H PRN PRN Reason: Nausea And Vomiting Last Admin: 06/22/21 12:46 Dose: 4 mg Oxycodone/Acetaminophen (Oxycodone /Acetaminophen 5-325mg Tab) 1 tab PO Q16H PRN PRN Reason: Pain, Moderate (4-6) Pantoprazole Sodium (Pantoprazole 40 Mg Tab) 40 mg PO BIDAC [facility] Last Admin: 06/23/21 08:24 Dose: Not Given Sodium Chloride (Sodium Chloride 0.9% 10 Ml Flush Syringe) 10 ml IV BID [facility] Last Admin: 06/22/21 21:56 Dose: 10 ml Sodium Chloride (Sodium Chloride 0.9% 10 Ml Flush Syringe) 10 ml IV PRN PRN PRN Reason: LINE FLUSH Review of Systems All systems: negative (10 point ROS performed and negative except for that listed in HPI) Exam Vital Signs Pulse Resp BP Pulse Ox 100 H 18 140/105 97 06/20/21 14:04 06/20/21 14:04 06/20/21 14:04 06/20/21 14:04 Narrative exam: Gen.: Awake, alert, oriented x3. No apparent distress ENT: Trachea midline. No lymphadenopathy. No scleral icterus or conjunctival pallor CV: S1, S2 present Respiratory: No audible wheezes Abdomen: Soft, nondistended, tenderness to palpation in the right upper quadrant. No rebound, rigidity, guarding Extremities: No clubbing, cyanosis, edema Results - Labs 06/21/21 10:57 06/20/21 16:02 - Imaging CT scan - abdomen: report reviewed, image reviewed CT scan - pelvis: report reviewed, image reviewed US - abdomen: report reviewed, image reviewed Additional studies: HIDA scan with EF Assessment and Plan 36-year-old male with symptomatic cholelithiasis, biliary dyskinesia Plan: 1. NPO 2. IVF 3. prn pain and nausea control 4. SCIP abx ordered 5. Recommend cholecystectomy. I discussed all risk and benefits, alternatives to surgery with the patient questions answered. Consent obtained. We will proceed to the OR today. 6. Patient has been evaluated by psych and is being recommended for inpatient therapy after medical clearance Discussed with Dr. Bautista yesterday. Thank you for this consultation. Please call with any questions or concerns. Evaluation and treatment of this patient was during the time of the national and state emergency arising from COVID19 coronavirus pandemic. Treatment and procedures performed meet the current and available best practice and guidelines for patient during the COVID pandemic.
[2021-06-23] MEDS: MAGNESIUM OXIDE 400 MG TAB PO SCH (11:24)
[2021-06-23] MEDS ORDERED: LIDOCAINE (1%) 10 MG/1 ML VIAL 20 ML MDV INFILTRATI ONE (12:22)
[2021-06-23] MEDS ORDERED: WATER FOR IRRIG STERILE 1,500 ML BOTTLE IR ONE (12:23)
[2021-06-23] MEDS ORDERED: HYDROcodone/ACETAMINOPHEN 5-325 MG TAB PO PRN (12:56)
[2021-06-23] MEDS ORDERED: LACTATED RINGERS 2,000 ML ONE (12:57)
[2021-06-23] MEDS ORDERED: GLYCOPYRROLATE 0.4 MG/2 ML INJ ONE (12:57)
[2021-06-23] MEDS ORDERED: ONDANSETRON 4 MG/2 ML INJ ONE (12:57)
[2021-06-23] MEDS ORDERED: HYDROmorphone 1 MG/1 ML INJ IV PRN (12:57)
[2021-06-23] MEDS ORDERED: NEOSTIGMINE 10MG/10 ML INJ MDV ONE (12:57)
--- NOTE | 2021-06-23 13:01 | Operative Report ---
Operative Report Operative Report: Date of operation: 06/23/2021 Preoperative diagnosis: Symptomatic cholelithiasis, biliary dyskinesia postOperative diagnoses: Same as above Procedure performed: Laparoscopic cholecystectomy Surgeon: Jayme Latham DO Dispatcher Maintenance surgeon: MD Alice Anesthesia: Gen. endotracheal anesthesia, local Findings: Mildly distended gallbladder with adhesions to omentum. Specimen: Gallbladder Estimated blood loss: 20 cc Complications: None Disposition: Stable to PACU HPI an indication: 36-year-old male who presented to the emergency room with complaints of 1 week of nausea, vomiting, right upper quadrant pain. The patient was found to have hematemesis and underwent GI work-up including CT abdomen and pelvis, ultrasound abdomen, EGD. EGD showed esophagitis and gastritis. Ultrasound showed contracted gallbladder with sludge but no evidence of cholecystitis and HIDA scan was also performed during which time the patient symptoms were reproduced with Ensure. It was recommended that the patient undergo cholecystectomy. All risks, benefits, alternatives to surgery were discussed in detail and questions answered. Consent was obtained for laparoscopic, possible open cholecystectomy, possible cholangiogram. Procedure in detail: The patient was identified in the preoperative area and taken back to the operating room, placed on the operating room table in supine position. After anesthesia was induced, the abdomen was prepped and draped in usual sterile fashion and timeout was performed. Local anesthetic was infiltrated into all of the skin incision sites. A supraumbilical incision was made through which a Veress needle was inserted. The Veress needle position was confirmed using saline drop test and the abdomen insufflated to 15 mmHg. The Veress needle was then removed and a 5 mm Optiview trocar placed his incision. The abdomen was inspected there was no underlying injury to the abdominal st ructures. An additional 12 mm subxyphoid port, 5 mm right mid upper quadrant and 5 mm right lateral abdominal ports were placed under direct visualization. The patient was then placed into reverse Trendelberg and tilted to the left. The gallbladder was mildly distended and was retracted cephalad and above the liver. The patient had hepatic steatosis. Adhesions from the omentum to the neck of the gallbladder were dissected using combination of blunt dissection and electrocautery. The cystic duct and artery were carefully skeletonized. The medial and lateral peritoneal attachments to the gallbladder were dissected using a combination of blunt dissection with the [place] and hook electrocautery. The cystic duct and artery were the only 2 structures seen entering the gallbladder and the critical view was successfully obtained. 2 clips were placed on the proximal aspect of the cystic duct and 1 distally and this was transected in between the clips using EndoShears. 2 clips were placed on the proximal aspect of the cystic artery and 1 distally this was transected in between the clips using EndoShears. The gallbladder was dissected from the liver bed using electrocautery. The gallbladder was placed into a Endo Catch bag and removed from the abdomen via the 12mm port. The gallbladder fossa was then inspected and there was no identifiable bleeding or bile leakage. Hemost asis was ensured. The clips on the cystic duct and artery were visualized and intact. Morison's pouch and gallbladder fossa was irrigated and hemostasis once again ensured. The patient was then placed into neutral position. The 12 mm port fascia was closed with interrupted 0 Vicryl sutures using the Rambo Jameson device. The remaining ports were removed under direct visualization. Skin incisions were closed with 4-0 Monocryl subcuticular stitches and skin glue. All skin incisions were once again infiltrated with local anesthetic. At the end case all sponge, instrument, sharp counts were correct 2. The patient was awoken from anesthesia, extubated, and taken to PACU in stable condition.
[2021-06-23] MEDS ORDERED: hydrOXYzine PAMOATE 25 MG CAP PO PRN (13:03)
--- NOTE | 2021-06-23 13:03 | Progress Note ---
Subjective - Reason for Consult Consult date: 06/23/21 Reason for consult: schizophrenia - Chief Complaint Chief complaint: The patient was seen this morning. He endorses suicidal ideation stating trigger such as his call to [facility] " they said I can't come back and I'm homeless now. " PAST PSYCHIATRIC HISTORY: Diagnoses: Schizophrenia, Bipolar Suicide attempts or Self-harm behavior: Yes Prior psychiatric hospitalizations: Yes Substance Abuse history: marijuana Previous psychiatric medications tried: unable to recall Outpatient treatment: Unknown PAST MEDICAL HISTORY: None reported or document Family Psychiatric History: None reported or documented SOCIAL HISTORY Marital Status: Single Living Arrangements: Homeless Employment Status: Unemployed Access to guns/weapons: Denies Education:9th grade History of Abuse: Denies Legal History: Denies REVIEW OF SYSTEMS Constitutional: Negative for weight loss ENT: Negative for stridor Respiratory: Negative for cough or hemoptysis All other systems reviewed and are negative MENTAL STATUS EXAMINATION General Appearance and Behavior: Age appropriate, wearing appropriate clothes, cooperative, polite with questioning, good eye contact, calm, polite Cooperation: cooperative Psychomotor Behavior: Psychomotor normal Mood: anxious/ depressed Affect and affective range: Congruent with stated mood Thought Process: Goal directed Thought Content:suicidal Speech: Normal volume, Regular rate and rhythm Suicidal Ideation: suicidal Homicidal Ideation: Denies Hallucination: Intermittent Delusions: None elicited Impulse Control: limited Insight and Judgment: Limited Memory: Intact Attention: attentive Orientation: Alert and oriented Diagnoses: Schizophrenia Treatment Plan 1013 Continue home meds Start Haldol 10mg po BID PSYCHOTHERAPY: Supportive psychotherapy provided MEDICAL: Per primary team DELIRIUM PRECAUTIONS: Please re-orient patient frequently, keep lights on during the day, and minimize benzodiazepines and opiates as these medications could worsen patient's confusion. CLINICAL ADMINISTRATOR: Per medical team DISPOSITION: Recommend acute psychiatric inpatient treatment. Will follow. Thank you for the consult. Case staffed with Dr. Sanchez Medications and Allergies Mental Status Exam - Vital signs Last Vital Signs Temp 98.1 F 06/23/21 04:56 Pulse 89 06/23/21 04:56 Resp 18 06/23/21 04:56 BP 115/77 06/23/21 04:56 Pulse Ox 96 06/23/21 10:34
[2021-06-23] MEDS: HYDROmorphone 1 MG/1 ML INJ IV PRN ×3 (13:07→13:27)
[2021-06-23] MEDS ORDERED: HYDROmorphone 0.5 MG/0.5 ML INJ IV PRN (14:00)
[2021-06-23] MEDS ORDERED: ONDANSETRON 4 MG/2 ML INJ IV PRN (14:00)
[2021-06-23] MEDS: HYDROmorphone 0.5 MG/0.5 ML INJ IV PRN (17:29)
[2021-06-23] MEDS: MELATONIN 5 MG TAB PO SCH (21:00)
--- NOTE | 2021-06-23 21:01 | Progress Note ---
Assessment and Plan Assessment and plan: 36 YO Male with HTN, Obesity Hypoventilation Syndrome, GERD, Neuropathy, Psychosis NOS presents ED for evaluation of hematemesis with 3-4 episodes of vomiting of blood over the past 3 days. Patient states his symptoms have been accompanied by abdominal discomfort. The patient was seen and evaluated in the emergency department. All lab and imaging studies reviewed. Patient had a witnessed episode of hematemesis while in the emergency department. GI team was consulted. -- Contracted gallbladder ; Surgery evaluated the patient s/p cholecystectomy Continue postop care UGIB/hematemesis; s/p EGD, Protonix and supportive care Esophagitis induced hematemesis Continue current management Abdominal pain Hypertension Obesity hypoventilation syndrome Psychosis/1012 status GERD 06/21/2021. The patient underwent EGD which revealed minimal gastritis throughout the stomach. Patient also had a 5 mm single sessile benign-appearing gastric polyp in the gastric body. The patient also had localized area of esophagitis at the GE junction with overlying blood. This appeared to be related to simple esophagitis with no evidence of Arminda-Cobian tear. Continue PPI twice daily. We will also perform HIDA scan with ejection fraction to rule out biliary dyskinesia as potential etiology for patient's abdominal pain. GI following. Psych has been consulted for patient's history of psychosis. Resume home psych medications 06/1821; s/p lap cholecystectomy Continue postop care Surgery cleared for psych placement DC planning per case management Possible inpatient psych placement Patient is medically cleared for discharge to inpatient psych facility History Interval history: I have seen and examined the patient at the bedside Patient's chart and medications reviewed Patient feels slightly better Patient remains on 1013 status Vital signs noted Hospitalist Physical - Constitutional Vitals: Temp Pulse Resp BP Pulse Ox 97.9 F 111 H 16 138/84 94 06/23/21 13:01 06/23/21 14:00 06/23/21 13:30 06/23/21 13:30 06/23/21 14:00 General appearance: Present: no acute distress, obese - EENT Eyes: Present: PERRL, EOM intact - Neck Neck: Present: supple, normal ROM - Respiratory Respiratory effort: normal Respiratory: bilateral: diminished, negative: rales, rhonchi, wheezing - Cardiovascular Rhythm: regular Heart Sounds: Present: S1 & S2 - Extremities Extremities: no ischemia, No edema - Abdominal General gastrointestinal: soft, non-tender, non-distended, normal bowel sounds - Integumentary Integumentary: Present: clear, warm - Psychiatric Psychiatric: appropriate mood/affect, cooperative - Neurologic Neurologic: CNII-XII intact, moves all extremities Results - Labs CBC & Chem 7: 06/21/21 10:57 06/20/21 16:02 Labs: Laboratory Last Values WBC 11.1 K/mm3 (4.5-11.0) H 06/21/21 10:57 RBC 5.13 M/mm3 (3.65-5.03) H 06/21/21 10:57 Hgb 13.5 gm/dl (11.8-15.2) 06/21/21 10:57 Hct 42.7 % (35.5-45.6) 06/21/21 10:57 MCV 83 fl (84-94) L 06/21/21 10:57 MCH 26 pg (28-32) L 06/21/21 10:57 MCHC 32 % (32-34) 06/21/21 10:57 RDW 14.8 % (13.2-15.2) 06/21/21 10:57 Plt Count 291 K/mm3 (140-440) 06/21/21 10:57 Lymph % (Auto) 16.6 % (13.4-35.0) 06/21/21 10:57 Navarro % (Auto) 9.6 % (0.0-7.3) H 06/21/21 10:57 Eos % (Auto) 1.6 % (0.0-4.3) 06/21/21 10:57 Baso % (Auto) 0.4 % (0.0-1.8) 06/21/21 10:57 Lymph # (Auto) 1.8 K/mm3 (1.2-5.4) 06/21/21 10:57 Navarro # (Auto) 1.1 K/mm3 (0.0-0.8) H 06/21/21 10:57 Eos # (Auto) 0.2 K/mm3 (0.0-0.4) 06/21/21 10:57 Baso # (Auto) 0.0 K/mm3 (0.0-0.1) 06/21/21 10:57 Seg Neutrophils % 71.8 % (40.0-70.0) H 06/21/21 10:57 Seg Neutrophils # 8.0 K/mm3 (1.8-7.7) H 06/21/21 10:57 PT 13.0 Sec. (12.2-14.9) 06/20/21 16:02 INR 0.89 (0.87-1.13) 06/20/21 16:02 APTT 25.4 Sec. (24.2-36.6) 06/20/21 16:02 Sodium 139 mmol/L (137-145) 06/20/21 16:02 Potassium 4.1 mmol/L (3.6-5.0) 06/20/21 16:02 Chloride 102.8 mmol/L (98-107) 06/20/21 16:02 Carbon Dioxide 27 mmol/L (22-30) 06/20/21 16:02 Anion Gap 13 mmol/L 06/20/21 16:02 BUN 10 mg/dL (9-20) 06/20/21 16:02 Creatinine 0.7 mg/dL (0.8-1.3) L 06/20/21 16:02 Estimated GFR > 60 ml/min 06/20/21 16:02 BUN/Creatinine Ratio 14 % 06/20/21 16:02 Glucose 91 mg/dL (75-100) 06/20/21 16:02 Lactic Acid 1.60 mmol/L (0.7-2.0) 06/20/21 16:02 Calcium 8.4 mg/dL (8.4-10.2) 06/20/21 16:02 Magnesium 2.10 mg/dL (1.7-2.3) 06/20/21 16:02 Total Bilirubin 0.30 mg/dL (0.1-1.2) 06/20/21 16:02 AST 16 units/L (5-40) 06/20/21 16:02 ALT 28 units/L (7-56) 06/20/21 16:02 Alkaline Phosphatase 110 units/L (35-129) 06/20/21 16:02 Total Protein 6.9 g/dL (6.3-8.2) 06/20/21 16:02 Albumin 3.7 g/dL (3.9-5) L 06/20/21 16:02 Albumin/Globulin Ratio 1.2 % 06/20/21 16:02 Lipase 13 units/L (13-60) 06/20/21 16:02 Blood Type A POSITIVE 06/20/21 15:07 Antibody Screen Negative 06/20/21 15:07 Mann/IV: Voiding Method Toilet Active Medications - Current Medications Current Medications: Generic Name Dose Route Start Last Admin Trade Name Freq PRN Reason Stop Dose Admin Acetaminophen 650 mg 06/20/21 19:08 Acetaminophen 325 Mg Tab PO Q4H PRN Pain MILD(1-3)/Fever >100.5/ALFREDO Hydrocodone Bitart/Acetaminophen 1 each 06/23/21 12:56 06/23/21 20:58 Hydrocodone/Acetaminophen 5-325 Mg Tab PO 1 each Q6H PRN Administration Pain, Moderate (4-6) Albuterol 2.5 mg 06/20/21 19:08 Albuterol 2.5 Mg/3 Ml Nebu IH Q4HRT PRN Shortness Of Breath Atorvastatin Calcium 20 mg 06/20/21 22:00 06/22/21 21:56 Atorvastatin 20 Mg Tab PO 20 mg QHS KRYSTYNA Administration Gabapentin 300 mg 06/20/21 20:00 06/23/21 20:59 Gabapentin 300 Mg Cap PO 300 mg TID KRYSTYNA Administration Haloperidol 10 mg 06/22/21 12:00 06/23/21 10:25 Haloperidol 5 Mg Tab PO Not Given BID KRYSTYNA Hydromorphone HCl 0.5 mg 06/23/21 13:49 06/23/21 13:27 Hydromorphone 1 Mg/1 Ml Inj IV 0.5 mg Q10MIN PRN Administration Pain , Severe (7-10) Hydromorphone HCl 0.5 mg 06/23/21 13:57 06/23/21 17:29 Hydromorphone 0.5 Mg/0.5 Ml Inj IV 0.5 mg Q3H PRN Administration Pain , Severe (7-10) Hydroxyzine Pamoate 25 mg 06/23/21 13:03 Hydroxyzine Pamoate 25 Mg Cap PO Q6H PRN Anxiety Lorazepam 1 mg 06/21/21 09:55 06/21/21 10:25 Lorazepam 2 Mg/Ml Vial IV 1 mg Q4H PRN Administration Anxiety Magnesium Hydroxide 30 ml 06/22/21 17:27 06/22/21 18:03 Magnesium Hydroxide (Mom) Oral Liqd Udc PO 30 ml ONCE PRN Administration Constipation Magnesium Oxide 400 mg 06/21/21 10:00 06/23/21 11:24 Magnesium Oxide 400 Mg Tab PO Not Given QDAY KRYSTYNA Melatonin 10 mg 06/20/21 22:00 06/22/21 21:55 Melatonin 5 Mg Tab PO 10 mg HS KRYSTYNA Administration Metoclopramide HCl 5 mg 06/22/21 15:17 06/22/21 18:03 Metoclopramide 10 Mg/2 Ml Inj IV 5 mg Q8H PRN Administration Vomiting Metoprolol Tartrate 12.5 mg 06/20/21 22:00 06/23/21 10:23 Metoprolol Tartrate 25 Mg Tab PO Not Given BID KRYSTYNA Mirtazapine 15 mg 06/20/21 22:00 06/22/21 21:56 Mirtazapine 15 Mg Tab PO 15 mg QHS KRYSTYNA Administration Ondansetron HCl 4 mg 06/20/21 19:23 06/22/21 12:46 Ondansetron 4 Mg/2 Ml Inj IV 4 mg Q8H PRN Administration Nausea And Vomiting Pantoprazole Sodium 40 mg 06/22/21 07:30 06/23/21 17:29 Pantoprazole 40 Mg Tab PO 40 mg BIDAC KRYSTYNA Administration Sodium Chloride 10 ml 06/20/21 22:00 06/23/21 17:24 Sodium Chloride 0.9% 10 Ml Flush Syringe IV Not Given BID KRYSTYNA Sodium Chloride 10 ml 06/20/21 19:08 Sodium Chloride 0.9% 10 Ml Flush Syringe IV PRN PRN LINE FLUSH Nutrition/Malnutrition Assess - Dietary Evaluation Nutrition/Malnutrition Findings: Nutrition Notes Start: 06/21/21 15:26 Freq: Status: Active Protocol: Document 06/21/21 15:26 ANDREA (Rec: 06/21/21 16:00 ANDREA [id number]) Nutrition Notes Current Diagnosis Hypertension Other Pertinent Diagnosis OHS, GERD, GI Bleed, Psychosis . Current Diet GI Soft Diet (since B 06/21). Labs/Tests 06/21: Crea 0.7. Pertinent Medications 06/21: Nutritionally unremarkable. Height 5 ft 9 in Weight 127.3 kg [place] Body Weight (kg) 72.72 BMI 41.4 Intake Prior to Admission Good Weight change and time frame Pt denies having loss body weight [facility] [facility]. 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 No reports available on Pt's PO intake of meals at the time , will assess at F/U. Pt on Room Air, O2 saturation @ 98%, according to Physical Assessment History notes. Pt presented hematemesis at admission, according to History & Physical notes. Pt show no signs of concern for skin risk at the time, according to Physical Assessment History notes. 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 Percent of energy/protein needs met: Prescribed GI Soft Diet provides for energy/protein needs (2,000 Kcal/82 g) during LOS. Burn Absent Trauma Absent GI Symptoms Nausea,Vomiting,Other Food Allergy No Skin Integrity/Comment Assessment WNL. Minimum of two criteria No #1 Nutrition Diagnosis Altered GI function Etiology GERD. 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 Is patient on ventilator? No Is Patient Ambulatory and/or Out of Bed Yes REE-([facility]-ambulatory/OOB) [ 2851.394 [id number]] Kcal/Kg value to use for calculation 15 Approximate Energy Requirements Using 1910 kcal/Kg Calculation Used for Recommendations Kcal/kg Additional Notes Protein: 0.8-1 g/Kg AdjBW; 80- 100 g/day. Fluids: 1 ml/Kcal, or as per MD. Nutrition Intervention Change Diet Order: Continue GI Soft diet, as tolerated; when pertinent, advance towards Regular Diet. Goal #1 Adjust the dietary intervention to better serve Pt's needs and clinical conditions during LOS. Goal #2 Facilitate PO intake of meals with elemental, textural, or mechanical modification during LOS. Goal #3 Maintain body weight within +/ -3% of admission body weight during LOS. Follow-Up By: 06/24/21 Additional Comments Continue monitoring food tolerance, %PO intake of meals , and BM.
[2021-06-23] MEDS: MIRTAZAPINE 15 MG TAB PO SCH (21:05)
[2021-06-24] MEDS: HYDROmorphone 0.5 MG/0.5 ML INJ IV PRN ×4 (00:59→17:15)
--- NOTE | 2021-06-24 08:45 | Progress Note ---
Assessment and Plan Assessment and plan: 36 YO Male with HTN, Obesity Hypoventilation Syndrome, GERD, Neuropathy, Psychosis NOS presents ED for evaluation of hematemesis with 3-4 episodes of vomiting of blood over the past 3 days. Patient states his symptoms have been accompanied by abdominal discomfort. The patient was seen and evaluated in the emergency department. All lab and imaging studies reviewed. Patient had a witnessed episode of hematemesis while in the emergency department. GI team was consulted. -- Contracted gallbladder ; Surgery evaluated the patient s/p cholecystectomy Continue postop care UGIB/hematemesis; s/p EGD, Protonix and supportive care Esophagitis induced hematemesis Continue current management Abdominal pain Hypertension Obesity hypoventilation syndrome Psychosis/1013 status GERD 06/21/2021. The patient underwent EGD which revealed minimal gastritis throughout the stomach. Patient also had a 5 mm single sessile benign-appearing gastric polyp in the gastric body. The patient also had localized area of esophagitis at the GE junction with overlying blood. This appeared to be related to simple esophagitis with no evidence of Arminda-Cobian tear. Continue PPI twice daily. We will also perform HIDA scan with ejection fraction to rule out biliary dyskinesia as potential etiology for patient's abdominal pain. GI following. Psych has been consulted for patient's history of psychosis. Resume home psych medications 06/1821; s/p lap cholecystectomy Continue postop care Surgery cleared for psych placement DC planning per case management Possible inpatient psych placement 06/25/19; patient is cleared by both GI and surgery For discharge Patient is medically stable for discharge to inpatient psych facility Disposition per psych Urine analysis, urine toxicology, COVID test requested History Interval history: I have seen and examined the patient at the bedside Patient's chart and medications reviewed Patient feels better no new complaints Patient underwent lap cholecystectomy. Postop stable cleared for discharge Patient did not have any new episodes of bleeding, H&H stable, GI cleared for discharge Patient is medically cleared for discharge and disposition per psych Vital signs noted stable Hospitalist Physical - Constitutional Vitals: Temp Pulse Resp BP Pulse Ox 97.5 F L 90 18 123/70 93 06/24/21 04:08 06/24/21 04:08 06/24/21 04:08 06/24/21 04:08 06/24/21 04:08 General appearance: Present: no acute distress, obese (Morbidly obese) - EENT Eyes: Present: PERRL, EOM intact - Neck Neck: Present: supple, normal ROM - Respiratory Respiratory effort: normal Respiratory: bilateral: diminished, negative: rales, rhonchi, wheezing - Cardiovascular Rhythm: regular Heart Sounds: Present: S1 & S2 - Extremities Extremities: no ischemia, No edema - Abdominal General gastrointestinal: soft, non-tender, non-distended, normal bowel sounds - Integumentary Integumentary: Present: clear, warm - Psychiatric Psychiatric: appropriate mood/affect, cooperative - Neurologic Neurologic: CNII-XII intact, moves all extremities Results - Labs CBC & Chem 7: 06/21/21 10:57 06/20/21 16:02 Labs: Laboratory Last Values WBC 11.1 K/mm3 (4.5-11.0) H 06/21/21 10:57 RBC 5.13 M/mm3 (3.65-5.03) H 06/21/21 10:57 Hgb 13.5 gm/dl (11.8-15.2) 06/21/21 10:57 Hct 42.7 % (35.5-45.6) 06/21/21 10:57 MCV 83 fl (84-94) L 06/21/21 10:57 MCH 26 pg (28-32) L 06/21/21 10:57 MCHC 32 % (32-34) 06/21/21 10:57 RDW 14.8 % (13.2-15.2) 06/21/21 10:57 Plt Count 291 K/mm3 (140-440) 06/21/21 10:57 Lymph % (Auto) 16.6 % (13.4-35.0) 06/21/21 10:57 [place] % (Auto) 9.6 % (0.0-7.3) H 06/21/21 10:57 Eos % (Auto) 1.6 % (0.0-4.3) 06/21/21 10:57 Baso % (Auto) 0.4 % (0.0-1.8) 06/21/21 10:57 Lymph # (Auto) 1.8 K/mm3 (1.2-5.4) 06/21/21 10:57 [place] # (Auto) 1.1 K/mm3 (0.0-0.8) H 06/21/21 10:57 Eos # (Auto) 0.2 K/mm3 (0.0-0.4) 06/21/21 10:57 Baso # (Auto) 0.0 K/mm3 (0.0-0.1) 06/21/21 10:57 Seg Neutrophils % 71.8 % (40.0-70.0) H 06/21/21 10:57 Seg Neutrophils # 8.0 K/mm3 (1.8-7.7) H 06/21/21 10:57 PT 13.0 Sec. (12.2-14.9) 06/20/21 16:02 INR 0.89 (0.87-1.13) 06/20/21 16:02 APTT 25.4 Sec. (24.2-36.6) 06/20/21 16:02 Sodium 139 mmol/L (137-145) 06/20/21 16:02 Potassium 4.1 mmol/L (3.6-5.0) 06/20/21 16:02 Chloride 102.8 mmol/L (98-107) 06/20/21 16:02 Carbon Dioxide 27 mmol/L (22-30) 06/20/21 16:02 Anion Gap 13 mmol/L 06/20/21 16:02 BUN 10 mg/dL (9-20) 06/20/21 16:02 Creatinine 0.7 mg/dL (0.8-1.3) L 06/20/21 16:02 Estimated GFR > 60 ml/min 06/20/21 16:02 BUN/Creatinine Ratio 14 % 06/20/21 16:02 Glucose 91 mg/dL (75-100) 06/20/21 16:02 Lactic Acid 1.60 mmol/L (0.7-2.0) 06/20/21 16:02 Calcium 8.4 mg/dL (8.4-10.2) 06/20/21 16:02 Magnesium 2.10 mg/dL (1.7-2.3) 06/20/21 16:02 Total Bilirubin 0.30 mg/dL (0.1-1.2) 06/20/21 16:02 AST 16 units/L (5-40) 06/20/21 16:02 ALT 28 units/L (7-56) 06/20/21 16:02 Alkaline Phosphatase 110 units/L (35-129) 06/20/21 16:02 Total Protein 6.9 g/dL (6.3-8.2) 06/20/21 16:02 Albumin 3.7 g/dL (3.9-5) L 06/20/21 16:02 Albumin/Globulin Ratio 1.2 % 06/20/21 16:02 Lipase 13 units/L (13-60) 06/20/21 16:02 Blood Type A POSITIVE 06/20/21 15:07 Antibody Screen Negative 06/20/21 15:07 Mann/IV: Voiding Method Toilet Active Medications - Current Medications Current Medications: Generic Name Dose Route Start Last Admin Trade Name Freq PRN Reason Stop Dose Admin Acetaminophen 650 mg 06/20/21 19:08 Acetaminophen 325 Mg Tab PO Q4H PRN Pain MILD(1-3)/Fever >100.5/ALFREDO Hydrocodone Bitart/Acetaminophen 1 each 06/23/21 12:56 06/23/21 20:58 Hydrocodone/Acetaminophen 5-325 Mg Tab PO 1 each Q6H PRN Administration Pain, Moderate (4-6) Albuterol 2.5 mg 06/20/21 19:08 Albuterol 2.5 Mg/3 Ml Nebu IH Q4HRT PRN Shortness Of Breath Atorvastatin Calcium 20 mg 06/20/21 22:00 06/23/21 21:00 Atorvastatin 20 Mg Tab PO 20 mg QHS KRYSTYNA Administration Gabapentin 300 mg 06/20/21 20:00 06/23/21 20:59 Gabapentin 300 Mg Cap PO 300 mg TID KRYSTYNA Administration Haloperidol 10 mg 06/22/21 12:00 06/23/21 21:00 Haloperidol 5 Mg Tab PO Not Given BID KRYSTYNA Hydromorphone HCl 0.5 mg 06/23/21 13:49 06/23/21 13:27 Hydromorphone 1 Mg/1 Ml Inj IV 0.5 mg Q10MIN PRN Administration Pain , Severe (7-10) Hydromorphone HCl 0.5 mg 06/23/21 13:57 06/24/21 04:53 Hydromorphone 0.5 Mg/0.5 Ml Inj IV 0.5 mg Q3H PRN Administration Pain , Severe (7-10) Hydroxyzine Pamoate 25 mg 06/23/21 13:03 Hydroxyzine Pamoate 25 Mg Cap PO Q6H PRN Anxiety Lorazepam 1 mg 06/21/21 09:55 06/21/21 10:25 Lorazepam 2 Mg/Ml Vial IV 1 mg Q4H PRN Administration Anxiety Magnesium Hydroxide 30 ml 06/22/21 17:27 06/22/21 18:03 Magnesium Hydroxide (Mom) Oral Liqd Udc PO 30 ml ONCE PRN Administration Constipation Magnesium Oxide 400 mg 06/21/21 10:00 06/23/21 11:24 Magnesium Oxide 400 Mg Tab PO Not Given QDAY KRYSTYNA Melatonin 10 mg 06/20/21 22:00 06/23/21 21:00 Melatonin 5 Mg Tab PO 10 mg HS KRYSTYNA Administration Metoclopramide HCl 5 mg 06/22/21 15:17 06/22/21 18:03 Metoclopramide 10 Mg/2 Ml Inj IV 5 mg Q8H PRN Administration Vomiting Metoprolol Tartrate 12.5 mg 06/20/21 22:00 06/23/21 21:11 Metoprolol Tartrate 25 Mg Tab PO 12.5 mg BID KRYSTYNA Administration Mirtazapine 15 mg 06/20/21 22:00 06/23/21 21:05 Mirtazapine 15 Mg Tab PO 15 mg QHS KRYSTYNA Administration Ondansetron HCl 4 mg 06/20/21 19:23 06/22/21 12:46 Ondansetron 4 Mg/2 Ml Inj IV 4 mg Q8H PRN Administration Nausea And Vomiting Pantoprazole Sodium 40 mg 06/22/21 07:30 06/23/21 17:29 Pantoprazole 40 Mg Tab PO 40 mg BIDAC KRYSTYNA Administration Sodium Chloride 10 ml 06/20/21 22:00 06/23/21 21:01 Sodium Chloride 0.9% 10 Ml Flush Syringe IV 10 ml BID KRYSTYNA Administration Sodium Chloride 10 ml 06/20/21 19:08 06/24/21 04:53 Sodium Chloride 0.9% 10 Ml Flush Syringe IV 10 ml PRN PRN Administration LINE FLUSH Nutrition/Malnutrition Assess - Dietary Evaluation Nutrition/Malnutrition Findings: Nutrition Notes Start: 06/21/21 15:26 Freq: Status: Active Protocol: Document 06/21/21 15:26 ANDREA (Rec: 06/21/21 16:00 ANDREA [id number]) Nutrition Notes Current Diagnosis Hypertension Other Pertinent Diagnosis OHS, GERD, GI Bleed, Psychosis . Current Diet GI Soft Diet (since B 06/21). Labs/Tests 06/21: Crea 0.7. Pertinent Medications 06/21: Nutritionally unremarkable. 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 No reports available on Pt's PO intake of meals at the time , will assess at F/U. Pt on Room Air, O2 saturation @ 98%, according to Physical Assessment History notes. Pt presented hematemesis at admission, according to History & Physical notes. Pt show no signs of concern for skin risk at the time, according to Physical Assessment History notes. 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 Percent of energy/protein needs met: Prescribed GI Soft Diet provides for energy/protein needs (2,000 Kcal/82 g) during LOS. Burn Absent Trauma Absent GI Symptoms Nausea,Vomiting,Other Food Allergy No Skin Integrity/Comment Assessment WNL. Minimum of two criteria No #1 Nutrition Diagnosis Altered GI function Etiology GERD. 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 Is patient on ventilator? No Is Patient Ambulatory and/or Out of Bed Yes REE-([facility]-ambulatory/OOB) [ 2851.394 NUTR.MSJOOB] Kcal/Kg value to use for calculation 15 Approximate Energy Requirements Using 1910 kcal/Kg Calculation Used for Recommendations Kcal/kg Additional Notes Protein: 0.8-1 g/Kg AdjBW; 80- 100 g/day. Fluids: 1 ml/Kcal, or as per MD. Nutrition Intervention Change Diet Order: Continue GI Soft diet, as tolerated; when pertinent, advance towards Regular Diet. Goal #1 Adjust the dietary intervention to better serve Pt's needs and clinical conditions during LOS. Goal #2 Facilitate PO intake of meals with elemental, textural, or mechanical modification during LOS. Goal #3 Maintain body weight within +/ -3% of admission body weight during LOS. Follow-Up By: 06/24/21 Additional Comments Continue monitoring food tolerance, %PO intake of meals , and BM.
[2021-06-24] MEDS: GABAPENTIN 300 MG CAP PO SCH ×3 (08:51→21:14)
[2021-06-24] MEDS: PANTOPRAZOLE 40 MG TAB PO SCH ×2 (08:52→17:14)
[2021-06-24] MEDS: METOPROLOL TARTRATE 25 MG TAB PO SCH ×2 (09:00→21:14)
[2021-06-24] MEDS: MAGNESIUM OXIDE 400 MG TAB PO SCH (09:00)
[2021-06-24] MEDS: HALOPERIDOL 5 MG TAB PO SCH (11:04)
--- NOTE | 2021-06-24 13:27 | Progress Note ---
Assessment and Plan Assessment and plan: 36 YO Male with HTN, Obesity Hypoventilation Syndrome, GERD, Neuropathy, Psychosis NOS presents ED for evaluation of hematemesis with 3-4 episodes of vomiting of blood over the past 3 days. Patient states his symptoms have been accompanied by abdominal discomfort. The patient was seen and evaluated in the emergency department. All lab and imaging studies reviewed. Patient had a witnessed episode of hematemesis while in the emergency department. GI team was consulted. -- Contracted gallbladder ; Surgery evaluated the patient s/p cholecystectomy Continue postop care Surgery cleared for discharge UGIB/hematemesis; s/p EGD, Protonix and supportive care Esophagitis induced hematemesis Continue current management No new episodes of bleeding H&H stable GI cleared for discharge Abdominal pain Hypertension Obesity hypoventilation syndrome Psychosis/3 status GERD 06/21/2021. The patient underwent EGD which revealed minimal gastritis throughout the stomach. Patient also had a 5 mm single sessile benign-appearing gastric polyp in the gastric body. The patient also had localized area of esophagitis at the GE junction with overlying blood. This appeared to be related to simple esophagitis with no evidence of Arminda-Cobian tear. Continue PPI twice daily. We will also perform HIDA scan with ejection fraction to rule out biliary dyskinesia as potential etiology for patient's abdominal pain. GI following. Psych has been consulted for patient's history of psychosis. Resume home psych medications 06/1821; s/p lap cholecystectomy Continue postop care Surgery cleared for psych placement DC planning per case management Possible inpatient psych placement 06/24/21; GI and surgery cleared for discharge Patient is medically stable for discharge, disposition per psychiatry 06/25/21 medically cleared for discharge to inpatient psych facility History Interval history: Seen and examined the patient at the bedside Patient's chart and medications reviewed No new events reported by the nursing staff GI and general surgery cleared the patient for discharge Patient is medically stable and cleared for discharge to inpatient psych facilit y Vital signs noted Hospitalist Physical - Constitutional Vitals: Temp Pulse Resp BP Pulse Ox 97.5 F L 90 18 123/70 93 06/24/21 04:08 06/24/21 04:08 06/24/21 04:08 06/24/21 04:08 06/24/21 04:08 General appearance: Present: no acute distress, obese - EENT Eyes: Present: PERRL, EOM intact - Neck Neck: Present: supple, normal ROM - Respiratory Respiratory effort: normal Respiratory: bilateral: diminished, negative: rales, rhonchi, wheezing - Cardiovascular Rhythm: regular Heart Sounds: Present: S1 & S2 - Extremities Extremities: no ischemia, No edema - Abdominal General gastrointestinal: soft, non-tender, non-distended, normal bowel sounds - Integumentary Integumentary: Present: clear, warm - Psychiatric Psychiatric: appropriate mood/affect, cooperative - Neurologic Neurologic: moves all extremities Results - Labs CBC & Chem 7: 06/25/21 15:34 06/20/21 16:02 Labs: Laboratory Last Values WBC 11.1 K/mm3 (4.5-11.0) H 06/21/21 10:57 RBC 5.13 M/mm3 (3.65-5.03) H 06/21/21 10:57 Hgb 13.5 gm/dl (11.8-15.2) 06/21/21 10:57 Hct 42.7 % (35.5-45.6) 06/21/21 10:57 MCV 83 fl (84-94) L 06/21/21 10:57 MCH 26 pg (28-32) L 06/21/21 10:57 MCHC 32 % (32-34) 06/21/21 10:57 RDW 14.8 % (13.2-15.2) 06/21/21 10:57 Plt Count 291 K/mm3 (140-440) 06/21/21 10:57 Lymph % (Auto) 16.6 % (13.4-35.0) 06/21/21 10:57 [place] % (Auto) 9.6 % (0.0-7.3) H 06/21/21 10:57 Eos % (Auto) 1.6 % (0.0-4.3) 06/21/21 10:57 Baso % (Auto) 0.4 % (0.0-1.8) 06/21/21 10:57 Lymph # (Auto) 1.8 K/mm3 (1.2-5.4) 06/21/21 10:57 [place] # (Auto) 1.1 K/mm3 (0.0-0.8) H 06/21/21 10:57 Eos # (Auto) 0.2 K/mm3 (0.0-0.4) 06/21/21 10:57 Baso # (Auto) 0.0 K/mm3 (0.0-0.1) 06/21/21 10:57 Seg Neutrophils % 71.8 % (40.0-70.0) H 06/21/21 10:57 Seg Neutrophils # 8.0 K/mm3 (1.8-7.7) H 06/21/21 10:57 PT 13.0 Sec. (12.2-14.9) 06/20/21 16:02 INR 0.89 (0.87-1.13) 06/20/21 16:02 APTT 25.4 Sec. (24.2-36.6) 06/20/21 16:02 Sodium 139 mmol/L (137-145) 06/20/21 16:02 Potassium 4.1 mmol/L (3.6-5.0) 06/20/21 16:02 Chloride 102.8 mmol/L (98-107) 06/20/21 16:02 Carbon Dioxide 27 mmol/L (22-30) 06/20/21 16:02 Anion Gap 13 mmol/L 06/20/21 16:02 BUN 10 mg/dL (9-20) 06/20/21 16:02 Creatinine 0.7 mg/dL (0.8-1.3) L 06/20/21 16:02 Estimated GFR > 60 ml/min 06/20/21 16:02 BUN/Creatinine Ratio 14 % 06/20/21 16:02 Glucose 91 mg/dL (75-100) 06/20/21 16:02 Lactic Acid 1.60 mmol/L (0.7-2.0) 06/20/21 16:02 Calcium 8.4 mg/dL (8.4-10.2) 06/20/21 16:02 Magnesium 2.10 mg/dL (1.7-2.3) 06/20/21 16:02 Total Bilirubin 0.30 mg/dL (0.1-1.2) 06/20/21 16:02 AST 16 units/L (5-40) 06/20/21 16:02 ALT 28 units/L (7-56) 06/20/21 16:02 Alkaline Phosphatase 110 units/L (35-129) 06/20/21 16:02 Total Protein 6.9 g/dL (6.3-8.2) 06/20/21 16:02 Albumin 3.7 g/dL (3.9-5) L 06/20/21 16:02 Albumin/Globulin Ratio 1.2 % 06/20/21 16:02 Lipase 13 units/L (13-60) 06/20/21 16:02 Blood Type A POSITIVE 06/20/21 15:07 Antibody Screen Negative 06/20/21 15:07 Mann/IV: Voiding Method Toilet Active Medications - Current Medications Current Medications: Generic Name Dose Route Start Last Admin Trade Name Freq PRN Reason Stop Dose Admin Acetaminophen 650 mg 06/20/21 19:08 Acetaminophen 325 Mg Tab PO Q4H PRN Pain MILD(1-3)/Fever >100.5/ALFREDO Hydrocodone Bitart/Acetaminophen 1 each 06/23/21 12:56 06/23/21 20:58 Hydrocodone/Acetaminophen 5-325 Mg Tab PO 1 each Q6H PRN Administration Pain, Moderate (4-6) Albuterol 2.5 mg 06/20/21 19:08 Albuterol 2.5 Mg/3 Ml Nebu IH Q4HRT PRN Shortness Of Breath Atorvastatin Calcium 20 mg 06/20/21 22:00 06/23/21 21:00 Atorvastatin 20 Mg Tab PO 20 mg QHS KRYSTYNA Administration Gabapentin 300 mg 06/20/21 20:00 06/24/21 08:51 Gabapentin 300 Mg Cap PO 300 mg TID KRYSTYNA Administration Haloperidol 10 mg 06/22/21 12:00 06/24/21 11:04 Haloperidol 5 Mg Tab PO Not Given BID KRYSTYNA Hydromorphone HCl 0.5 mg 06/23/21 13:49 06/23/21 13:27 Hydromorphone 1 Mg/1 Ml Inj IV 0.5 mg Q10MIN PRN Administration Pain , Severe (7-10) Hydromorphone HCl 0.5 mg 06/23/21 13:57 06/24/21 08:57 Hydromorphone 0.5 Mg/0.5 Ml Inj IV 0.5 mg Q3H PRN Administration Pain , Severe (7-10) Hydroxyzine Pamoate 25 mg 06/23/21 13:03 Hydroxyzine Pamoate 25 Mg Cap PO Q6H PRN Anxiety Lorazepam 1 mg 05/16/22 09:55 06/21/21 10:25 Lorazepam 2 Mg/Ml Vial IV 1 mg Q4H PRN Administration Anxiety Magnesium Hydroxide 30 ml 06/22/21 17:27 06/22/21 18:03 Magnesium Hydroxide (Mom) Oral Liqd Udc PO 30 ml ONCE PRN Administration Constipation Magnesium Oxide 400 mg 06/21/21 10:00 06/24/21 09:00 Magnesium Oxide 400 Mg Tab PO 400 mg QDAY KRYSTYNA Administration Melatonin 10 mg 06/20/21 22:00 06/23/21 21:00 Melatonin 5 Mg Tab PO 10 mg HS KRYSTYNA Administration Metoclopramide HCl 5 mg 06/22/21 15:17 06/22/21 18:03 Metoclopramide 10 Mg/2 Ml Inj IV 5 mg Q8H PRN Administration Vomiting Metoprolol Tartrate 12.5 mg 06/20/21 22:00 06/24/21 09:00 Metoprolol Tartrate 25 Mg Tab PO 12.5 mg BID KRYSTYNA Administration Mirtazapine 15 mg 06/20/21 22:00 06/23/21 21:05 Mirtazapine 15 Mg Tab PO 15 mg QHS KRYSTYNA Administration Ondansetron HCl 4 mg 06/20/21 19:23 06/22/21 12:46 Ondansetron 4 Mg/2 Ml Inj IV 4 mg Q8H PRN Administration Nausea And Vomiting Pantoprazole Sodium 40 mg 06/22/21 07:30 06/24/21 08:52 Pantoprazole 40 Mg Tab PO 40 mg BIDAC KRYSTYNA Administration Sodium Chloride 10 ml 06/20/21 22:00 06/24/21 11:05 Sodium Chloride 0.9% 10 Ml Flush Syringe IV 10 ml BID KRYSTYNA Administration Sodium Chloride 10 ml 06/20/21 19:08 06/24/21 04:53 Sodium Chloride 0.9% 10 Ml Flush Syringe IV 10 ml PRN PRN Administration LINE FLUSH Nutrition/Malnutrition Assess - Dietary Evaluation Nutrition/Malnutrition Findings: Nutrition Notes Start: 06/21/21 15:26 Freq: Status: Active Protocol: Document 06/21/21 15:26 ANDREA (Rec: 06/21/21 16:00 ANDREA [id number]) Nutrition Notes Current Diagnosis Hypertension Other Pertinent Diagnosis OHS, GERD, GI Bleed, Psychosis . Current Diet GI Soft Diet (since B 06/21). Labs/Tests 06/21: Crea 0.7. Pertinent Medications 06/21: Nutritionally unremarkable. 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 No reports available on Pt's PO intake of meals at the time , will assess at F/U. Pt on Room Air, O2 saturation @ 98%, according to Physical Assessment History notes. Pt presented hematemesis at admission, according to History & Physical notes. Pt show no signs of concern for skin risk at the time, according to Physical Assessment History notes. 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 Percent of energy/protein needs met: Prescribed GI Soft Diet provides for energy/protein needs (2,000 Kcal/82 g) during LOS. Burn Absent Trauma Absent GI Symptoms Nausea,Vomiting,Other Food Allergy No Skin Integrity/Comment Assessment WNL. Minimum of two criteria No #1 Nutrition Diagnosis Altered GI function Etiology GERD. 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 Is patient on ventilator? No Is Patient Ambulatory and/or Out of Bed Yes REE-([facility]-ambulatory/OOB) [ 2851.394 NUTR.MSJOOB] Kcal/Kg value to use for calculation 15 Approximate Energy Requirements Using 1910 kcal/Kg Calculation Used for Recommendations Kcal/kg Additional Notes Protein: 0.8-1 g/Kg AdjBW; 80- 100 g/day. Fluids: 1 ml/Kcal, or as per MD. Nutrition Intervention Change Diet Order: Continue GI Soft diet, as tolerated; when pertinent, advance towards Regular Diet. Goal #1 Adjust the dietary intervention to better serve Pt's needs and clinical conditions during LOS. Goal #2 Facilitate PO intake of meals with elemental, textural, or mechanical modification during LOS. Goal #3 Maintain body weight within +/ -3% of admission body weight during LOS. Follow-Up By: 06/24/21 Additional Comments Continue monitoring food tolerance, %PO intake of meals , and BM.
[2021-06-24] MEDS ORDERED: MAGNESIUM CITRATE 300 ML ORAL LIQD PO SCH (14:03)
--- NOTE | 2021-06-24 14:04 | Progress Note ---
Assessment and Plan 36-year-old male s/p lap markel, POD 1 1. symptomatic cholelithiasis, biliary dyskinesia Plan: 1. Reg diet 2. dc IVF 3. prn pain and nausea control 4. bowel regimen 5. IS/pulm toilet 6. OOB/amb 7. Cleared for dc from surgery standpoint to inpatient psych facility. May follow up in surgery clinic upon dc from that facility. Thank you. Please call with any questions or concerns. Evaluation and treatment of this patient was during the time of the national and state emergency arising from COVID19 coronavirus pandemic. Treatment and procedures performed meet the current and available best practice and guidelines for patient during the COVID pandemic. Subjective Date of service: 06/24/21 Narrative: Pt seen and examined. c.o incisional pain. Continues to have back pain from laying in bed. Has been mobile, OOB. Mild nausea but no vomiting. Candace diet. Has not had BM for several days. Objective Vital Signs - 12hr 06/24/21 04:08 Temperature 97.5 F L Pulse Rate 90 Respiratory 18 Rate Blood Pressure 123/70 O2 Sat by Pulse 93 Oximetry - General physical appearance Narrative Exam: Gen.: Awake, alert, oriented x3. No apparent distress ENT: Trachea midline. No lymphadenopathy. No scleral icterus or conjunctival pallor CV: S1, S2 present Respiratory: No audible wheezes Abdomen: Soft, nondistended, mild incisional TTP. Incisions c/d/i. No rebound, rigidity, guarding Extremities: No clubbing, cyanosis, edema - Labs 06/21/21 10:57 06/20/21 16:02
[2021-06-24] MEDS: GUANFACINE HCL 1 MG PO SCH ×2 (14:33→14:34)
[2021-06-24] MEDS: DOCUSATE SODIUM 100 MG CAP PO SCH ×2 (14:57→21:14)
[2021-06-24] MEDS: SCOPOLAMINE TRANSDERMAL PATCH 72 HR TD SCH (15:01)
[2021-06-24 19:09] LABS: Amphetamine Screen,Urine Negative; Benzodiazepines Screen,Urine Negative; Cannabinoid Screen,Urine Negative; Cocaine Screen,Urine Negative; Methadone Screen,Urine Negative; Opiate Screen,Urine Negative
[2021-06-24 19:10] LABS: Bilirubin,Urine NEG (Negative); Blood,Urine NEG (Negative); Color,Urine Yellow (Yellow); Mucus,Urine FEW /HPF; Protein,Urine <15 mg/dL mg/dL (Negative); Sperm,Urine FEW /HPF (NP); Urobilinogen,Urine < 2.0 mg/dL (<2.0)
[2021-06-24] MEDS: MIRTAZAPINE 15 MG TAB PO SCH (21:13)
[2021-06-24] MEDS: MELATONIN 5 MG TAB PO SCH (21:14)
[2021-06-25] MEDS ORDERED: ARIPiprazole 10 MG TAB PO SCH (10:00)
[2021-06-25] MEDS: METOPROLOL TARTRATE 25 MG TAB PO SCH ×2 (11:38→21:51)
[2021-06-25] MEDS: MAGNESIUM OXIDE 400 MG TAB PO SCH (11:39)
[2021-06-25] MEDS: PANTOPRAZOLE 40 MG TAB PO SCH ×2 (11:39→18:33)
[2021-06-25] MEDS: DOCUSATE SODIUM 100 MG CAP PO SCH ×2 (11:39→21:50)
[2021-06-25] MEDS: HYDROmorphone 0.5 MG/0.5 ML INJ IV PRN ×2 (11:39→21:51)
[2021-06-25] MEDS: GABAPENTIN 300 MG CAP PO SCH ×3 (11:39→21:50)
--- NOTE | 2021-06-25 13:50 | Progress Note ---
Subjective - Reason for Consult Consult date: 06/25/21 Reason for consult: SI - Chief Complaint Chief complaint: The patient was seen today. He is calm, and cooperative. The patient says he was at [place] for suicidal thoughts. He still endorses suicidal thoughts and states that he will just walk into traffic. The patient says "I have nothing or nobody. Not even any shoes to go on my feet." The patient also says he hears voices telling him to kill himself. REVIEW OF SYSTEMS Constitutional: Negative for weight loss ENT: Negative for stridor Respiratory: Negative for cough or hemoptysis All other systems reviewed and are negative MENTAL STATUS EXAMINATION General Appearance and Behavior: Age appropriate, wearing appropriate clothes, cooperative, polite with questioning, good eye contact, calm, polite Cooperation: cooperative Psychomotor Behavior: Psychomotor normal Mood: anxious/ depressed Affect and affective range: Congruent with stated mood Thought Process: Goal directed Thought Content:suicidal Speech: Normal volume, Regular rate and rhythm Suicidal Ideation: suicidal Homicidal Ideation: Denies Hallucination: Auditory, command Delusions: None elicited Impulse Control: limited Insight and Judgment: Limited Memory: Intact Attention: attentive Orientation: Alert and oriented Diagnoses: Schizophrenia Treatment Plan 1013 Increase Abilify 15mg po daily Start Lexapro 5mg po daily PSYCHOTHERAPY: Supportive psychotherapy provided MEDICAL: Per primary team DELIRIUM PRECAUTIONS: Please re-orient patient frequently, keep lights on during the day, and minimize benzodiazepines and opiates as these medications could worsen patient's confusion. 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 Will follow. Thank you for the consult. Case staffed with Dr. Sanchez Mental Status Exam - Vital signs Last Vital Signs Temp 98.2 F 06/25/21 10:43 Pulse 92 H 06/25/21 10:43 Resp 18 06/25/21 10:43 BP 117/69 06/25/21 10:43 Pulse Ox 94 06/25/21 10:43
[2021-06-25 16:01] LABS: Basophils # (Auto) 0.1 K/mm3 (0.0-0.1); Basophils % (Auto) 0.5 % (0.0-1.8); Eosinophils # (Auto) 0.3 K/mm3 (0.0-0.4); Eosinophils % (Auto) 2.3 % (0.0-4.3); Hematocrit 40.7 % (35.5-45.6); Hemoglobin 13.1 gm/dl (11.8-15.2); Lymphocytes % (Auto) 14.9 % (13.4-35.0); Mean Corpuscular HGB Conc 32 % (32-34); Mean Corpuscular Volume 82 fl (84-94); Monocytes # (Auto) 1.3 K/mm3 (0.0-0.8); Monocytes % (Auto) 9.6 % (0.0-7.3); Platelet Count 288 K/mm3 (140-440); Red Blood Count 4.96 M/mm3 (3.65-5.03); Red Cell Distribution Width 15.1 % (13.2-15.2)
[2021-06-25] MEDS: ESCITALOPRAM 10 MG TAB PO SCH (18:33)
--- NOTE | 2021-06-25 20:40 | Progress Note ---
Assessment and Plan Assessment and plan: 36 YO Male with HTN, Obesity Hypoventilation Syndrome, GERD, Neuropathy, Psychosis NOS presents ED for evaluation of hematemesis with 3-4 episodes of vomiting of blood over the past 3 days. Patient states his symptoms have been accompanied by abdominal discomfort. The patient was seen and evaluated in the emergency department. All lab and imaging studies reviewed. Patient had a witnessed episode of hematemesis while in the emergency department. GI team was consulted. -- Contracted gallbladder ; Surgery evaluated the patient s/p cholecystectomy Continue postop care Surgery cleared for discharge UGIB/hematemesis; s/p EGD, Protonix and supportive care Esophagitis induced hematemesis Continue current management No new episodes of bleeding H&H stable GI cleared for discharge Abdominal pain; resolved Hypertension; well-controlled Obesity hypoventilation syndrome; advised diet modification exercise as tolerated and weight reduction Psychosis/1013 status GERD; Protonix 06/21/2021. The patient underwent EGD which revealed minimal gastritis throughout the stomach. Patient also had a 5 mm single sessile benign-appearing gastric polyp in the gastric body. The patient also had localized area of esophagitis at the GE junction with overlying blood. This appeared to be related to simple esophagitis with no evidence of [place]-Cobian tear. Continue PPI twice daily. We will also perform HIDA scan with ejection fraction to rule out biliary dyskinesia as potential etiology for patient's abdominal pain. GI following. Psych has been consulted for patient's history of psychosis. Resume home psych medications 06/1821; s/p lap cholecystectomy Continue postop care Surgery cleared for psych placement DC planning per case management Possible inpatient psych placement 06/24/21; GI and surgery cleared for discharge Patient is medically stable for discharge, disposition per psychiatry 06/25/21 medically cleared for discharge to inpatient psych facility Disposition per psych History Interval history: I seen and examined the patient at the bedside Patient's chart and medications reviewed No new complaints Patient is 1013 status per psych Vital signs noted Hospitalist Physical - Constitutional Vitals: Temp Pulse Resp BP Pulse Ox 98.2 F 101 H 18 127/82 97 06/25/21 16:52 06/25/21 16:52 06/25/21 16:52 06/25/21 16:52 06/25/21 16:52 General appearance: Present: no acute distress, obese - EENT Eyes: Present: PERRL, EOM intact - Neck Neck: Present: supple, normal ROM - Respiratory Respiratory effort: normal Respiratory: bilateral: diminished, negative: rales, rhonchi, wheezing - Cardiovascular Rhythm: regular Heart Sounds: Present: S1 & S2 - Extremities Extremities: no ischemia, No edema - Abdominal General gastrointestinal: soft, non-tender, non-distended, normal bowel sounds - Integumentary Integumentary: Present: clear, warm - Psychiatric Psychiatric: appropriate mood/affect, cooperative - Neurologic Neurologic: moves all extremities Results - Labs CBC & Chem 7: 06/25/21 15:34 06/20/21 16:02 Labs: Laboratory Last Values WBC 13.2 K/mm3 (4.5-11.0) H 06/25/21 15:34 RBC 4.96 M/mm3 (3.65-5.03) 06/25/21 15:34 Hgb 13.1 gm/dl (11.8-15.2) 06/25/21 15:34 Hct 40.7 % (35.5-45.6) 06/25/21 15:34 MCV 82 fl (84-94) L 06/25/21 15:34 MCH 26 pg (28-32) L 06/25/21 15:34 MCHC 32 % (32-34) 06/25/21 15:34 RDW 15.1 % (13.2-15.2) 06/25/21 15:34 Plt Count 288 K/mm3 (140-440) 06/25/21 15:34 Lymph % (Auto) 14.9 % (13.4-35.0) 06/25/21 15:34 Richardson % (Auto) 9.6 % (0.0-7.3) H 06/25/21 15:34 Eos % (Auto) 2.3 % (0.0-4.3) 06/25/21 15:34 Baso % (Auto) 0.5 % (0.0-1.8) 06/25/21 15:34 Lymph # (Auto) 2.0 K/mm3 (1.2-5.4) 06/25/21 15:34 Richardson # (Auto) 1.3 K/mm3 (0.0-0.8) H 06/25/21 15:34 Eos # (Auto) 0.3 K/mm3 (0.0-0.4) 06/25/21 15:34 Baso # (Auto) 0.1 K/mm3 (0.0-0.1) 06/25/21 15:34 Seg Neutrophils % 72.7 % (40.0-70.0) H 06/25/21 15:34 Seg Neutrophils # 9.6 K/mm3 (1.8-7.7) H 06/25/21 15:34 PT 13.0 Sec. (12.2-14.9) 06/20/21 16:02 INR 0.89 (0.87-1.13) 06/20/21 16:02 APTT 25.4 Sec. (24.2-36.6) 06/20/21 16:02 Sodium 139 mmol/L (137-145) 06/20/21 16:02 Potassium 4.1 mmol/L (3.6-5.0) 06/20/21 16:02 Chloride 102.8 mmol/L (98-107) 06/20/21 16:02 Carbon Dioxide 27 mmol/L (22-30) 06/20/21 16:02 Anion Gap 13 mmol/L 06/20/21 16:02 BUN 10 mg/dL (9-20) 06/20/21 16:02 Creatinine 0.7 mg/dL (0.8-1.3) L 06/20/21 16:02 Estimated GFR > 60 ml/min 06/20/21 16:02 BUN/Creatinine Ratio 14 % 06/20/21 16:02 Glucose 91 mg/dL (75-100) 06/20/21 16:02 Lactic Acid 1.60 mmol/L (0.7-2.0) 06/20/21 16:02 Calcium 8.4 mg/dL (8.4-10.2) 06/20/21 16:02 Magnesium 2.10 mg/dL (1.7-2.3) 06/20/21 16:02 Total Bilirubin 0.30 mg/dL (0.1-1.2) 06/20/21 16:02 AST 16 units/L (5-40) 06/20/21 16:02 ALT 28 units/L (7-56) 06/20/21 16:02 Alkaline Phosphatase 110 units/L (35-129) 06/20/21 16:02 Total Protein 6.9 g/dL (6.3-8.2) 06/20/21 16:02 Albumin 3.7 g/dL (3.9-5) L 06/20/21 16:02 Albumin/Globulin Ratio 1.2 % 06/20/21 16:02 Lipase 13 units/L (13-60) 06/20/21 16:02 Urine Color Yellow (Yellow) 06/24/21 18:48 Urine Turbidity Clear (Clear) 06/24/21 18:48 Urine pH 5.0 (5.0-7.0) 06/24/21 18:48 Ur Specific [place] 1.023 (1.003-1.030) 06/24/21 18:48 Urine Protein <15 mg/dl mg/dL (Negative) 06/24/21 18:48 Urine Glucose (UA) Neg mg/dL (Negative) 06/24/21 18:48 Urine Ketones Neg mg/dL (Negative) 06/24/21 18:48 Urine Blood Neg (Negative) 06/24/21 18:48 Urine Nitrite Neg (Negative) 06/24/21 18:48 Urine Bilirubin Neg (Negative) 06/24/21 18:48 Urine Urobilinogen < 2.0 mg/dL (<2.0) 06/24/21 18:48 Ur Leukocyte Esterase Neg (Negative) 06/24/21 18:48 Urine WBC (Auto) 1.0 /HPF (0.0-6.0) 06/24/21 18:48 Urine RBC (Auto) 2.0 /HPF (0.0-6.0) 06/24/21 18:48 Urine Mucus Few /HPF 06/24/21 18:48 Urine Sperm Few /HPF (NEON SIGN MECHANIC) 06/24/21 18:48 Urine Opiates Screen Negative 06/24/21 18:48 Urine Methadone Screen Negative 06/24/21 18:48 Ur Barbiturates Screen Negative 06/24/21 18:48 Ur Phencyclidine Scrn Negative 06/24/21 18:48 Ur Amphetamines Screen Negative 06/24/21 18:48 U Benzodiazepines Scrn Negative 06/24/21 18:48 Urine Cocaine Screen Negative 06/24/21 18:48 U Marijuana (THC) Screen Negative 06/24/21 18:48 Drugs of Abuse Note Disclamer 06/24/21 18:48 SARS-CoV-2 (PCR) Negative (Negative) 06/24/21 12:20 Blood Type A POSITIVE 06/20/21 15:07 Antibody Screen Negative 06/20/21 15:07 Mann/IV: Voiding Method Toilet Active Medications - Current Medications Current Medications: Generic Name Dose Route Start Last Admin Trade Name Freq PRN Reason Stop Dose Admin Acetaminophen 650 mg 06/20/21 19:08 Acetaminophen 325 Mg Tab PO Q4H PRN Pain MILD(1-3)/Fever >100.5/ALFREDO Hydrocodone Bitart/Acetaminophen 1 each 06/23/21 12:56 06/23/21 20:58 Hydrocodone/Acetaminophen 5-325 Mg Tab PO 1 each Q6H PRN Administration Pain, Moderate (4-6) Albuterol 2.5 mg 06/20/21 19:08 Albuterol 2.5 Mg/3 Ml Nebu IH Q4HRT PRN Shortness Of Breath Aripiprazole 15 mg 06/26/21 10:00 Aripiprazole 15 Mg Tab PO QDAY KRYSTYNA Atorvastatin Calcium 20 mg 06/20/21 22:00 06/24/21 21:13 Atorvastatin 20 Mg Tab PO 20 mg QHS KRYSTYNA Administration Docusate Sodium 100 mg 06/24/21 15:00 06/25/21 11:39 Docusate Sodium 100 Mg Cap PO 100 mg BID KRYSTYNA Administration Escitalopram Oxalate 5 mg 06/25/21 14:00 06/25/21 18:33 Escitalopram 10 Mg Tab PO Not Given QDAY KRYSTYNA Gabapentin 300 mg 06/20/21 20:00 06/25/21 14:19 Gabapentin 300 Mg Cap PO Not Given TID KRYSTYNA Hydromorphone HCl 0.5 mg 06/23/21 13:57 06/25/21 11:39 Hydromorphone 0.5 Mg/0.5 Ml Inj IV 0.5 mg Q3H PRN Administration Pain , Severe (7-10) Hydroxyzine Pamoate 25 mg 06/23/21 13:03 Hydroxyzine Pamoate 25 Mg Cap PO Q6H PRN Anxiety Lorazepam 1 mg 06/21/21 09:55 06/21/21 10:25 Lorazepam 2 Mg/Ml Vial IV 1 mg Q4H PRN Administration Anxiety Magnesium Citrate 300 ml 06/24/21 14:03 Magnesium Citrate 300 Ml Oral Liqd PO ONCE KRYSTYNA Magnesium Hydroxide 30 ml 06/22/21 17:27 06/22/21 18:03 Magnesium Hydroxide (Mom) Oral Liqd Udc PO 30 ml ONCE PRN Administration Constipation Magnesium Oxide 400 mg 06/21/21 10:00 06/25/21 11:39 Magnesium Oxide 400 Mg Tab PO 400 mg QDAY KRYSTYNA Administration Melatonin 10 mg 06/20/21 22:00 06/24/21 21:14 Melatonin 5 Mg Tab PO 10 mg HS KRYSTYNA Administration Metoclopramide HCl 5 mg 06/22/21 15:17 06/22/21 18:03 Metoclopramide 10 Mg/2 Ml Inj IV 5 mg Q8H PRN Administration Vomiting Metoprolol Tartrate 12.5 mg 06/20/21 22:00 06/25/21 11:38 Metoprolol Tartrate 25 Mg Tab PO 12.5 mg BID KRYSTYNA Administration Mirtazapine 15 mg 06/20/21 22:00 06/24/21 21:13 Mirtazapine 15 Mg Tab PO 15 mg QHS KRYSTYNA Administration Ondansetron HCl 4 mg 06/20/21 19:23 06/22/21 12:46 Ondansetron 4 Mg/2 Ml Inj IV 4 mg Q8H PRN Administration Nausea And Vomiting Pantoprazole Sodium 40 mg 06/22/21 07:30 06/25/21 18:33 Pantoprazole 40 Mg Tab PO 40 mg BIDAC KRYSTYNA Administration Scopolamine 1 each 06/24/21 16:00 06/24/21 15:01 Scopolamine Transdermal Patch 72 Hr TD 1 each Q3D KRYSTYNA Administration Sodium Chloride 10 ml 06/20/21 22:00 06/25/21 11:44 Sodium Chloride 0.9% 10 Ml Flush Syringe IV 10 ml BID KRYSTYNA Administration Sodium Chloride 10 ml 06/20/21 19:08 06/24/21 04:53 Sodium Chloride 0.9% 10 Ml Flush Syringe IV 10 ml PRN PRN Administration LINE FLUSH Nutrition/Malnutrition Assess - Dietary Evaluation Nutrition/Malnutrition Findings: Nutrition Notes Start: 06/21/21 15 :26 Freq: Status: Active Protocol: Document 06/24/21 14:47 ANDREA (Rec: 06/24/21 15:13 ANDREA [id number]) Nutrition Notes Initial or Follow up Reassessment Current Diagnosis Hypertension Other Pertinent Diagnosis s/p Cholelithiasis/Biliary Dyskinesia, s/p UGIB/ Hematemesis/EGD, OHS, Psych Current Diet GI Soft Diet (since D 06/23). Labs/Tests 06/24: Crea 0.7. Pertinent Medications 06/24: Nutritionally unremarkable. Height 5 ft 9 in Weight 142 kg [place] Body Weight (kg) 72.72 BMI 46.2 Weight change and time frame Discrepancy of 14.7 Kg body weight gain in 3 days reported . Weight Status Morbidly Obese Subjective/Other Information RD consult for routine F/U on dietary advancement. Pt's PO intake of meals has been Good (100%), according to ADL notes. Pt is on Room Air, O2 saturation @ 96%, according to Physical Assessment History notes. Pt presents abdominal pain and back pain, according to Progress notes. Pt presents abdominal surgical wounds, according to Physical Assessment History notes. Pt still presenting nausea, but no vomiting, according to Progress notes. Procedure on 06/23: Laparoscopic cholecystectomy, well tolerated, according to Operative Report notes. Pt is clinically cleared for discharge to an Inpatient Psychiatric Facility, according to Progress notes. Percent of energy/protein needs met: Prescribed GI Soft Diet provides for energy/protein needs (2,000 Kcal/82 g) during LOS. Burn Absent Trauma Absent GI Symptoms Nausea Food Allergy No Skin Integrity/Comment Abdominal surgical wounds. Current % PO Good (75-100%) Minimum of two criteria No #1 Nutrition Diagnosis Altered GI function Comments: Pt is s/p Cholelithiasis/ Biliary Dyskinesia, s/p UGIB/ Hematemesis/EGD. Diagnosis Progress(for reassessment Improved documentation) Is patient on ventilator? No Is Patient Ambulatory and/or Out of Bed Yes REE-([facility]. [facility]-ambulatory/OOB) [ 3042.494 [id number]] Kcal/Kg value to use for calculation 14 Approximate Energy Requirements Using 1988 kcal/Kg Calculation Used for Recommendations Kcal/kg Additional Notes Protein: 0.8-1 g/Kg AdjBW; 80- 100 g/day. Fluids: 1 ml/Kcal, or as per MD. Nutrition Intervention Change Diet Order: Continue GI Soft diet, as tolerated; when pertinent, advance towards Regular Diet. Goal #1 Adjust the dietary intervention to better serve Pt's needs and clinical conditions during LOS. Goal #2 Facilitate PO intake of meals with elemental, textural, or mechanical modification during LOS. Goal #3 Maintain body weight within +/ -3% of admission body weight during LOS. Revisit per MD consult or patient Sign Off request: Additional Comments Continue monitoring food tolerance, %PO intake of meals , and BM.
[2021-06-25] MEDS: MIRTAZAPINE 15 MG TAB PO SCH (21:50)
[2021-06-25] MEDS: MELATONIN 5 MG TAB PO SCH (21:50)
[2021-06-25] MEDS: MAGNESIUM HYDROXIDE (MOM) ORAL LIQD UDC PO PRN (22:34)
--- NOTE | 2021-06-26 09:12 | Progress Note ---
Assessment and Plan Assessment and plan: 36 YO Male with HTN, Obesity Hypoventilation Syndrome, GERD, Neuropathy, Psychosis NOS presents ED for evaluation of hematemesis with 3-4 episodes of vomiting of blood over the past 3 days. Patient states his symptoms have been accompanied by abdominal discomfort. The patient was seen and evaluated in the emergency department. All lab and imaging studies reviewed. Patient had a witnessed episode of hematemesis while in the emergency department. GI team was consulted. --Leukocytosis; without evidence of any infectious process Today WBCs 11.8[normal range 4.5-11.0] Patient has no fever, urine analysis is negative for infection Patient has no urinary or upper respiratory symptoms, will check chest x-ray If negative patient is medically cleared for discharge. Psych will pursue placement -- Contracted gallbladder ; Surgery evaluated the patient s/p cholecystectomy Continue postop care Surgery cleared for discharge UGIB/hematemesis; s/p EGD, Protonix and supportive care Esophagitis induced hematemesis Continue current management No new episodes of bleeding H&H stable GI cleared for discharge Abdominal pain; resolved Hypertension; well-controlled Obesity hypoventilation syndrome; advised diet modification exercise as tolerated and weight reduction Psychosis/1013 status GERD; Protonix 06/21/2021. The patient underwent EGD which revealed minimal gastritis throughout the stomach. Patient also had a 5 mm single sessile benign-appearing gastric polyp in the gastric body. The patient also had localized area of esophagitis at the GE junction with overlying blood. This appeared to be related to simple esophagitis with no evidence of [place]-Cobian tear. Continue PPI twice daily. We will also perform HIDA scan with ejection fraction to rule out biliary dyskinesia as potential etiology for patient's abdominal pain. GI following. Psych has been consulted for patient's history of psychosis. Resume home psych medications 06/1821; s/p lap cholecystectomy Continue postop care Surgery cleared for psych placement DC planning per case management Possible inpatient psych placement 06/24/21; GI and surgery cleared for discharge Patient is medically stable for discharge, disposition per psychiatry 06/25/21 medically cleared for discharge to inpatient psych facility 06/26/2021; patient is medically cleared for discharge, urine drug screen negative, COVID-19 test negative, urine analysis negative for abnormality Patient can be placed inpatient psych facility further evaluation and management 06/27/21; patient's WBC is 11.8 today, normal range 4.5-11.0 ,clinically insignificant Patient is afebrile, urinalysis is normal, no evidence of infection, no pulmonary symptoms, will check chest x-ray If negative patient is cleared medically for discharge. Disposition per psych History Interval history: I have seen and examined the patient at the bedside Patient's chart and medications reviewed Patient feels better Denies any shortness of breath or cough No urinary symptoms Patient is afebrile Vital signs reviewed Hospitalist Physical - Constitutional Vitals: Temp Pulse Resp BP Pulse Ox 98.5 F 86 16 129/69 93 06/26/21 06:39 06/26/21 06:39 06/26/21 06:39 06/26/21 06:39 06/26/21 06:39 General appearance: Present: no acute distress, well-nourished, obese - EENT Eyes: Present: PERRL, EOM intact - Neck Neck: Present: supple, normal ROM - Respiratory Respiratory effort: normal Respiratory: bilateral: diminished, negative: rales, rhonchi, wheezing - Cardiovascular Rhythm: regular Heart Sounds: Present: S1 & S2 - Extremities Extremities: no ischemia, No edema - Abdominal General gastrointestinal: soft, non-tender, non-distended, normal bowel sounds - Integumentary Integumentary: Present: clear, warm - Psychiatric Psychiatric: appropriate mood/affect, cooperative - Neurologic Neurologic: moves all extremities Results - Labs CBC & Chem 7: 06/27/21 05:50 06/20/21 16:02 Labs: Laboratory Last Values WBC 13.2 K/mm3 (4.5-11.0) H 06/25/21 15:34 RBC 4.96 M/mm3 (3.65-5.03) 06/25/21 15:34 Hgb 13.1 gm/dl (11.8-15.2) 06/25/21 15:34 Hct 40.7 % (35.5-45.6) 06/25/21 15:34 MCV 82 fl (84-94) L 06/25/21 15:34 MCH 26 pg (28-32) L 06/25/21 15:34 MCHC 32 % (32-34) 06/25/21 15:34 RDW 15.1 % (13.2-15.2) 06/25/21 15:34 Plt Count 288 K/mm3 (140-440) 06/25/21 15:34 Lymph % (Auto) 14.9 % (13.4-35.0) 06/25/21 15:34 [place] % (Auto) 9.6 % (0.0-7.3) H 06/25/21 15:34 Eos % (Auto) 2.3 % (0.0-4.3) 06/25/21 15:34 Baso % (Auto) 0.5 % (0.0-1.8) 06/25/21 15:34 Lymph # (Auto) 2.0 K/mm3 (1.2-5.4) 06/25/21 15:34 [place] # (Auto) 1.3 K/mm3 (0.0-0.8) H 06/25/21 15:34 Eos # (Auto) 0.3 K/mm3 (0.0-0.4) 06/25/21 15:34 Baso # (Auto) 0.1 K/mm3 (0.0-0.1) 06/25/21 15:34 Seg Neutrophils % 72.7 % (40.0-70.0) H 06/25/21 15:34 Seg Neutrophils # 9.6 K/mm3 (1.8-7.7) H 06/25/21 15:34 PT 13.0 Sec. (12.2-14.9) 06/20/21 16:02 INR 0.89 (0.87-1.13) 06/20/21 16:02 APTT 25.4 Sec. (24.2-36.6) 06/20/21 16:02 Sodium 139 mmol/L (137-145) 06/20/21 16:02 Potassium 4.1 mmol/L (3.6-5.0) 06/20/21 16:02 Chloride 102.8 mmol/L (98-107) 06/20/21 16:02 Carbon Dioxide 27 mmol/L (22-30) 06/20/21 16:02 Anion Gap 13 mmol/L 06/20/21 16:02 BUN 10 mg/dL (9-20) 06/20/21 16:02 Creatinine 0.7 mg/dL (0.8-1.3) L 06/20/21 16:02 Estimated GFR > 60 ml/min 06/20/21 16:02 BUN/Creatinine Ratio 14 % 06/20/21 16:02 Glucose 91 mg/dL (75-100) 06/20/21 16:02 Lactic Acid 1.60 mmol/L (0.7-2.0) 06/20/21 16:02 Calcium 8.4 mg/dL (8.4-10.2) 06/20/21 16:02 Magnesium 2.10 mg/dL (1.7-2.3) 06/20/21 16:02 Total Bilirubin 0.30 mg/dL (0.1-1.2) 06/20/21 16:02 AST 16 units/L (5-40) 06/20/21 16:02 ALT 28 units/L (7-56) 06/20/21 16:02 Alkaline Phosphatase 110 units/L (35-129) 06/20/21 16:02 Total Protein 6.9 g/dL (6.3-8.2) 06/20/21 16:02 Albumin 3.7 g/dL (3.9-5) L 06/20/21 16:02 Albumin/Globulin Ratio 1.2 % 06/20/21 16:02 Lipase 13 units/L (13-60) 06/20/21 16:02 Urine Color Yellow (Yellow) 06/24/21 18:48 Urine Turbidity Clear (Clear) 06/24/21 18:48 Urine pH 5.0 (5.0-7.0) 06/24/21 18:48 Ur Specific [place] 1.023 (1.003-1.030) 06/24/21 18:48 Urine Protein <15 mg/dl mg/dL (Negative) 06/24/21 18:48 Urine Glucose (UA) Neg mg/dL (Negative) 06/24/21 18:48 Urine Ketones Neg mg/dL (Negative) 06/24/21 18:48 Urine Blood Neg (Negative) 06/24/21 18:48 Urine Nitrite Neg (Negative) 06/24/21 18:48 Urine Bilirubin Neg (Negative) 06/24/21 18:48 Urine Urobilinogen < 2.0 mg/dL (<2.0) 06/24/21 18:48 Ur Leukocyte Esterase Neg (Negative) 06/24/21 18:48 Urine WBC (Auto) 1.0 /HPF (0.0-6.0) 06/24/21 18:48 Urine RBC (Auto) 2.0 /HPF (0.0-6.0) 06/24/21 18:48 Urine Mucus Few /HPF 06/24/21 18:48 Urine Sperm Few /HPF ([employer] SUNGLASSES) 06/24/21 18:48 Urine Opiates Screen Negative 06/24/21 18:48 Urine Methadone Screen Negative 06/24/21 18:48 Ur Barbiturates Screen Negative 06/24/21 18:48 Ur Phencyclidine Scrn Negative 06/24/21 18:48 Ur Amphetamines Screen Negative 06/24/21 18:48 U Benzodiazepines Scrn Negative 06/24/21 18:48 Urine Cocaine Screen Negative 06/24/21 18:48 U Marijuana (THC) Screen Negative 06/24/21 18:48 Drugs of Abuse Note Disclamer 06/24/21 18:48 SARS-CoV-2 (PCR) Negative (Negative) 06/24/21 12:20 Blood Type A POSITIVE 06/20/21 15:07 Antibody Screen Negative 06/20/21 15:07 Mann/IV: Voiding Method Toilet Active Medications - Current Medications Current Medications: Generic Name Dose Route Start Last Admin Trade Name Freq PRN Reason Stop Dose Admin Acetaminophen 650 mg 06/20/21 19:08 Acetaminophen 325 Mg Tab PO Q4H PRN Pain MILD(1-3)/Fever >100.5/ALFREDO Hydrocodone Bitart/Acetaminophen 1 each 06/23/21 12:56 06/23/21 20:58 Hydrocodone/Acetaminophen 5-325 Mg Tab PO 1 each Q6H PRN Administration Pain, Moderate (4-6) Albuterol 2.5 mg 06/20/21 19:08 Albuterol 2.5 Mg/3 Ml Nebu IH Q4HRT PRN Shortness Of Breath Aripiprazole 15 mg 06/26/21 10:00 Aripiprazole 15 Mg Tab PO QDAY KRYSTYNA Atorvastatin Calcium 20 mg 06/20/21 22:00 06/25/21 21:51 Atorvastatin 20 Mg Tab PO 20 mg QHS KRYSTYNA Administration Docusate Sodium 100 mg 06/24/21 15:00 06/25/21 21:50 Docusate Sodium 100 Mg Cap PO 100 mg BID KRYSTYNA Administration Escitalopram Oxalate 5 mg 06/25/21 14:00 06/25/21 18:33 Escitalopram 10 Mg Tab PO Not Given QDAY KRYSTYNA Gabapentin 300 mg 06/20/21 20:00 06/25/21 21:50 Gabapentin 300 Mg Cap PO 300 mg TID KRYSTYNA Administration Hydromorphone HCl 0.5 mg 06/23/21 13:57 06/25/21 21:51 Hydromorphone 0.5 Mg/0.5 Ml Inj IV 0.5 mg Q3H PRN Administration Pain , Severe (7-10) Hydroxyzine Pamoate 25 mg 06/23/21 13:03 Hydroxyzine Pamoate 25 Mg Cap PO Q6H PRN Anxiety Lorazepam 1 mg 06/21/21 09:55 06/21/21 10:25 Lorazepam 2 Mg/Ml Vial IV 1 mg Q4H PRN Administration Anxiety Magnesium Citrate 300 ml 06/24/21 14:03 Magnesium Citrate 300 Ml Oral Liqd PO ONCE KRYSTYNA Magnesium Hydroxide 30 ml 06/22/21 17:27 06/25/21 22:34 Magnesium Hydroxide (Mom) Oral Liqd Udc PO 30 ml ONCE PRN Administration Constipation Magnesium Oxide 400 mg 06/21/21 10:00 06/25/21 11:39 Magnesium Oxide 400 Mg Tab PO 400 mg QDAY KRYSTYNA Administration Melatonin 10 mg 06/20/21 22:00 06/25/21 21:50 Melatonin 5 Mg Tab PO 10 mg HS KRYSTYNA Administration Metoclopramide HCl 5 mg 06/22/21 15:17 06/22/21 18:03 Metoclopramide 10 Mg/2 Ml Inj IV 5 mg Q8H PRN Administration Vomiting Metoprolol Tartrate 12.5 mg 06/20/21 22:00 06/25/21 21:51 Metoprolol Tartrate 25 Mg Tab PO 12.5 mg BID KRYSTYNA Administration Mirtazapine 15 mg 06/20/21 22:00 06/25/21 21:50 Mirtazapine 15 Mg Tab PO 15 mg QHS KRYSTYNA Administration Ondansetron HCl 4 mg 06/20/21 19:23 06/22/21 12:46 Ondansetron 4 Mg/2 Ml Inj IV 4 mg Q8H PRN Administration Nausea And Vomiting Pantoprazole Sodium 40 mg 06/22/21 07:30 06/25/21 18:33 Pantoprazole 40 Mg Tab PO 40 mg BIDAC KRYSTYNA Administration Scopolamine 1 each 06/24/21 16:00 06/24/21 15:01 Scopolamine Transdermal Patch 72 Hr TD 1 each Q3D KRYSTYNA Administration Sodium Chloride 10 ml 06/20/21 22:00 06/25/21 21:51 Sodium Chloride 0.9% 10 Ml Flush Syringe IV 10 ml BID KRYSTYNA Administration Sodium Chloride 10 ml 06/20/21 19:08 06/24/21 04:53 Sodium Chloride 0.9% 10 Ml Flush Syringe IV 10 ml PRN PRN Administration LINE FLUSH Nutrition/Malnutrition Assess - Dietary Evaluation Nutrition/Malnutrition Findings: Nutrition Notes Start: 06/21/21 15:26 Freq: Status: Active Protocol: Document 06/24/21 14:47 ANDREA (Rec: 06/24/21 15:13 ANDREA [id number]) Nutrition Notes Initial or Follow up Reassessment Current Diagnosis Hypertension Other Pertinent Diagnosis s/p Cholelithiasis/Biliary Dyskinesia, s/p UGIB/ Hematemesis/EGD, OHS, Psych Current Diet GI Soft Diet (since D 06/23). Labs/Tests 06/24: Crea 0.7. Pertinent Medications 06/24: Nutritionally unremarkable. Height 5 ft 9 in Weight 142 kg [place] Body Weight (kg) 72.72 BMI 46.2 Weight change and time frame Discrepancy of 14.7 Kg body weight gain in 3 days reported . Weight Status Morbidly Obese Subjective/Other Information RD consult for routine F/U on dietary advancement. Pt's PO intake of meals has been Good (100%), according to ADL notes. Pt is on Room Air, O2 saturation @ 96%, according to Physical Assessment History notes. Pt presents abdominal pain and back pain, according to Progress notes. Pt presents abdominal surgical wounds, according to Physical Assessment History notes. Pt still presenting nausea, but no vomiting, according to Progress notes. Procedure on 06/23: Laparoscopic cholecystectomy, well tolerated, according to Operative Report notes. Pt is clinically cleared for discharge to an Inpatient Psychiatric Facility, according to Progress notes. Percent of energy/protein needs met: Prescribed GI Soft Diet provides for energy/protein needs (2,000 Kcal/82 g) during LOS. Burn Absent Trauma Absent GI Symptoms Nausea Food Allergy No Skin Integrity/Comment Abdominal surgical wounds. Current % PO Good (75-100%) Minimum of two criteria No #1 Nutrition Diagnosis Altered GI function Comments: Pt is s/p Cholelithiasis/ Biliary Dyskinesia, s/p UGIB/ Hematemesis/EGD. Diagnosis Progress(for reassessment Improved documentation) Is patient on ventilator? No Is Patient Ambulatory and/or Out of Bed Yes REE-([place]-St. Jeor-ambulatory/OOB) [ 3042.494 NUTR.[id number]] Kcal/Kg value to use for calculation 14 Approximate Energy Requirements Using 1988 kcal/Kg Calculation Used for Recommendations Kcal/kg Additional Notes Protein: 0.8-1 g/Kg AdjBW; 80- 100 g/day. Fluids: 1 ml/Kcal, or as per MD. Nutrition Intervention Change Diet Order: Continue GI Soft diet, as tolerated; when pertinent, advance towards Regular Diet. Goal #1 Adjust the dietary intervention to better serve Pt's needs and clinical conditions during LOS. Goal #2 Facilitate PO intake of meals with elemental, textural, or mechanical modification during LOS. Goal #3 Maintain body weight within +/ -3% of admission body weight during LOS. Revisit per MD consult or patient Sign Off request: Additional Comments Continue monitoring food tolerance, %PO intake of meals , and BM.
[2021-06-26] MEDS: PANTOPRAZOLE 40 MG TAB PO SCH ×3 (10:43→16:56)
[2021-06-26] MEDS: METOPROLOL TARTRATE 25 MG TAB PO SCH ×3 (10:44→22:17)
[2021-06-26] MEDS: ARIPiprazole 15 MG TAB PO SCH ×2 (10:44→12:01)
[2021-06-26] MEDS: DOCUSATE SODIUM 100 MG CAP PO SCH ×3 (10:44→22:18)
[2021-06-26] MEDS: ESCITALOPRAM 10 MG TAB PO SCH (10:44)
[2021-06-26] MEDS: MAGNESIUM OXIDE 400 MG TAB PO SCH ×2 (10:44→12:01)
[2021-06-26] MEDS: GABAPENTIN 300 MG CAP PO SCH ×4 (10:44→20:37)
--- NOTE | 2021-06-26 11:08 | Progress Note ---
Subjective - Reason for Consult Consult date: 06/26/21 Reason for consult: SI - Chief Complaint Chief complaint: The patient was seen today. He says he is very depressed and can't eat. He still endorses suicidal thoughts. When asked about a plan, he says "I just want to ." REVIEW OF SYSTEMS Constitutional: Negative for weight loss ENT: Negative for stridor Respiratory: Negative for cough or hemoptysis All other systems reviewed and are negative MENTAL STATUS EXAMINATION General Appearance and Behavior: Age appropriate, wearing appropriate clothes, cooperative, polite with questioning, good eye contact, calm, polite Cooperation: cooperative Psychomotor Behavior: Psychomotor normal Mood: anxious/ depressed Affect and affective range: Congruent with stated mood Thought Process: Goal directed Thought Content:suicidal Speech: Normal volume, Regular rate and rhythm Suicidal Ideation: suicidal Homicidal Ideation: Denies Hallucination: Auditory, command Delusions: None elicited Impulse Control: limited Insight and Judgment: Limited Memory: Intact Attention: attentive Orientation: Alert and oriented Diagnoses: Schizophrenia Treatment Plan 1013 Abilify 15mg po daily Increase Lexapro 10mg po daily PSYCHOTHERAPY: Supportive psychotherapy provided MEDICAL: Per primary team DELIRIUM PRECAUTIONS: Please re-orient patient frequently, keep lights on during the day, and minimize benzodiazepines and opiates as these medications could worsen patient's confusion. 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 Will follow. Thank you for the consult. Case staffed with Dr. Sanchez Mental Status Exam - Vital signs Last Vital Signs Temp 98.5 F 06/26/21 06:39 Pulse 86 06/26/21 06:39 Resp 16 06/26/21 06:39 BP 129/69 06/26/21 06:39 Pulse Ox 93 06/26/21 06:39
[2021-06-26 21:22] LABS: Hematocrit 40.4 % (35.5-45.6); Hemoglobin 13.1 gm/dl (11.8-15.2); Mean Corpuscular HGB Conc 33 % (32-34); Mean Corpuscular Volume 82 fl (84-94); Platelet Count 304 K/mm3 (140-440); Red Blood Count 4.92 M/mm3 (3.65-5.03); Red Cell Distribution Width 15.1 % (13.2-15.2)
[2021-06-26] MEDS: MIRTAZAPINE 15 MG TAB PO SCH (22:17)
[2021-06-26] MEDS: MELATONIN 5 MG TAB PO SCH (22:17)
[2021-06-27] MEDS: ONDANSETRON 4 MG/2 ML INJ IV PRN (06:13)
[2021-06-27 06:31] LABS: Basophils % (Auto) 0.4 % (0.0-1.8); Eosinophils # (Auto) 0.2 K/mm3 (0.0-0.4); Hematocrit 39.8 % (35.5-45.6); Hemoglobin 12.9 gm/dl (11.8-15.2); Lymphocytes # (Auto) 1.7 K/mm3 (1.2-5.4); Lymphocytes % (Auto) 14.6 % (13.4-35.0); Mean Corpuscular HGB Conc 33 % (32-34); Mean Corpuscular Volume 83 fl (84-94); Monocytes % (Auto) 8.6 % (0.0-7.3); Platelet Count 301 K/mm3 (140-440); Red Blood Count 4.79 M/mm3 (3.65-5.03)
[2021-06-27] MEDS: PANTOPRAZOLE 40 MG TAB PO SCH ×2 (08:26→16:29)
[2021-06-27] MEDS: GABAPENTIN 300 MG CAP PO SCH ×3 (08:26→20:41)
--- NOTE | 2021-06-27 08:51 | XRay Report ---
CHEST 1 VIEW 06/27/2021 7:37 AM INDICATION / CLINICAL INFORMATION: Leukocytosis. COMPARISON: None available. FINDINGS: SUPPORT DEVICES: None. HEART / MEDIASTINUM: The heart size and pulmonary vasculature are normal. LUNGS / PLEURA: There are mild patchy parenchymal opacities in both mid to lower lung zones periphera lly. No pleural effusion or adenopathy. No pneumothorax. ADDITIONAL FINDINGS: No significant additional findings. IMPRESSION: Mild patchy parenchymal opacities in both mid to lower lung zones are nonspecific, but li esvin inflammatory. Atypical causes of pneumonia should be considered. Signer Name: Brock Greenfield MD Signed: 06/27/2021 8:47 AM Workstation Name: [id number]
--- NOTE | 2021-06-27 09:21 | Progress Note ---
Assessment and Plan Assessment and plan: 36 YO Male with HTN, Obesity Hypoventilation Syndrome, GERD, Neuropathy, Psychosis NOS presents ED for evaluation of hematemesis with 3-4 episodes of vomiting of blood over the past 3 days. Patient states his symptoms have been accompanied by abdominal discomfort. The patient was seen and evaluated in the emergency department. All lab and imaging studies reviewed. Patient had a witnessed episode of hematemesis while in the emergency department. GI team was consulted. -- Contracted gallbladder ; Surgery evaluated the patient s/p cholecystectomy Continue postop care Surgery cleared for discharge UGIB/hematemesis; s/p EGD, Protonix and supportive care Esophagitis induced hematemesis Continue current management No new episodes of bleeding H&H stable GI cleared for discharge Abdominal pain; resolved Hypertension; well-controlled Obesity hypoventilation syndrome; advised diet modification exercise as tolerated and weight reduction Psychosis/1012 status GERD; Protonix 06/21/2021. The patient underwent EGD which revealed minimal gastritis throughout the stomach. Patient also had a 5 mm single sessile benign-appearing gastric polyp in the gastric body. The patient also had localized area of esophagitis at the GE junction with overlying blood. This appeared to be related to simple esophagitis with no evidence of Arm[place]-Cobian tear. Continue PPI twice daily. We will also perform HIDA scan with ejection fraction to rule out biliary dyskinesia as potential etiology for patient's abdominal pain. GI following. Psych has been consulted for patient's history of psychosis. Resume home psych medications 06/1821; s/p lap cholecystectomy Continue postop care Surgery cleared for psych placement DC planning per case management Possible inpatient psych placement 06/24/21; GI and surgery cleared for discharge Patient is medically stable for discharge, disposition per psychiatry 06/25/21 medically cleared for discharge to inpatient psych facility Disposition per psych History Interval history: Seen and examined the patient at the bedside Patient's chart and medications reviewed Patient feels better Patient was medically cleared for discharge to psych facility However patient had mild leukocytosis No evidence of infectious process Pending discharge planning Hospitalist Physical - Constitutional Vitals: Temp Pulse Resp BP Pulse Ox 98.2 F 100 H 16 121/77 91 06/27/21 04:22 06/27/21 04:22 06/27/21 04:22 06/27/21 04:22 06/27/21 04:22 General appearance: Present: no acute distress, obese - EENT Eyes: Present: PERRL, EOM intact - Neck Neck: Present: supple, normal ROM - Respiratory Respiratory effort: normal Respiratory: bilateral: diminished, negative: rales, rhonchi, wheezing - Cardiovascular Rhythm: regular Heart Sounds: Present: S1 & S2 - Extremities Extremities: no ischemia, No edema - Abdominal General gastrointestinal: soft, non-tender, non-distended, normal bowel sounds - Integumentary Integumentary: Present: clear, warm - Psychiatric Psychiatric: appropriate mood/affect, cooperative - Neurologic Neurologic: moves all extremities Results - Labs CBC & Chem 7: 06/27/21 05:50 06/20/21 16:02 Labs: Laboratory Last Values WBC 11.8 K/mm3 (4.5-11.0) H 06/27/21 05:50 RBC 4.79 M/mm3 (3.65-5.03) 06/27/21 05:50 Hgb 12.9 gm/dl (11.8-15.2) 06/27/21 05:50 Hct 39.8 % (35.5-45.6) 06/27/21 05:50 MCV 83 fl (84-94) L 06/27/21 05:50 MCH 27 pg (28-32) L 06/27/21 05:50 MCHC 33 % (32-34) 06/27/21 05:50 RDW 15.0 % (13.2-15.2) 06/27/21 05:50 Plt Count 301 K/mm3 (140-440) 06/27/21 05:50 Lymph % (Auto) 14.6 % (13.4-35.0) 06/27/21 05:50 [place] % (Auto) 8.6 % (0.0-7.3) H 06/27/21 05:50 Eos % (Auto) 2.0 % (0.0-4.3) 06/27/21 05:50 Baso % (Auto) 0.4 % (0.0-1.8) 06/27/21 05:50 Lymph # (Auto) 1.7 K/mm3 (1.2-5.4) 06/27/21 05:50 [place] # (Auto) 1.0 K/mm3 (0.0-0.8) H 06/27/21 05:50 Eos # (Auto) 0.2 K/mm3 (0.0-0.4) 06/27/21 05:50 Baso # (Auto) 0.0 K/mm3 (0.0-0.1) 06/27/21 05:50 Seg Neutrophils % 74.4 % (40.0-70.0) H 06/27/21 05:50 Seg Neutrophils # 8.8 K/mm3 (1.8-7.7) H 06/27/21 05:50 PT 13.0 Sec. (12.2-14.9) 06/20/21 16:02 INR 0.89 (0.87-1.13) 06/20/21 16:02 APTT 25.4 Sec. (24.2-36.6) 06/20/21 16:02 Sodium 139 mmol/L (137-145) 06/20/21 16:02 Potassium 4.1 mmol/L (3.6-5.0) 06/20/21 16:02 Chloride 102.8 mmol/L (98-107) 06/20/21 16:02 Carbon Dioxide 27 mmol/L (22-30) 06/20/21 16:02 Anion Gap 13 mmol/L 06/20/21 16:02 BUN 10 mg/dL (9-20) 06/20/21 16:02 Creatinine 0.7 mg/dL (0.8-1.3) L 06/20/21 16:02 Estimated GFR > 60 ml/min 06/20/21 16:02 BUN/Creatinine Ratio 14 % 06/20/21 16:02 Glucose 91 mg/dL (75-100) 06/20/21 16:02 Lactic Acid 1.60 mmol/L (0.7-2.0) 06/20/21 16:02 Calcium 8.4 mg/dL (8.4-10.2) 06/20/21 16:02 Magnesium 2.10 mg/dL (1.7-2.3) 06/20/21 16:02 Total Bilirubin 0.30 mg/dL (0.1-1.2) 06/20/21 16:02 AST 16 units/L (5-40) 06/20/21 16:02 ALT 28 units/L (7-56) 06/20/21 16:02 Alkaline Phosphatase 110 units/L (35-129) 06/20/21 16:02 Total Protein 6.9 g/dL (6.3-8.2) 06/20/21 16:02 Albumin 3.7 g/dL (3.9-5) L 06/20/21 16:02 Albumin/Globulin Ratio 1.2 % 06/20/21 16:02 Lipase 13 units/L (13-60) 06/20/21 16:02 Urine Color Yellow (Yellow) 06/24/21 18:48 Urine Turbidity Clear (Clear) 06/24/21 18:48 Urine pH 5.0 (5.0-7.0) 06/24/21 18:48 Ur Specific [place] 1.023 (1.003-1.030) 06/24/21 18:48 Urine Protein <15 mg/dl mg/dL (Negative) 06/24/21 18:48 Urine Glucose (UA) Neg mg/dL (Negative) 06/24/21 18:48 Urine Ketones Neg mg/dL (Negative) 06/24/21 18:48 Urine Blood Neg (Negative) 06/24/21 18:48 Urine Nitrite Neg (Negative) 06/24/21 18:48 Urine Bilirubin Neg (Negative) 06/24/21 18:48 Urine Urobilinogen < 2.0 mg/dL (<2.0) 06/24/21 18:48 Ur Leukocyte Esterase Neg (Negative) 06/24/21 18:48 Urine WBC (Auto) 1.0 /HPF (0.0-6.0) 06/24/21 18:48 Urine RBC (Auto) 2.0 /HPF (0.0-6.0) 06/24/21 18:48 Urine Mucus Few /HPF 06/24/21 18:48 Urine Sperm Few /HPF (BIOLOGY FACULTY MEMBER) 06/24/21 18:48 Urine Opiates Screen Negative 06/24/21 18:48 Urine Methadone Screen Negative 06/24/21 18:48 Ur Barbiturates Screen Negative 06/24/21 18:48 Ur Phencyclidine Scrn Negative 06/24/21 18:48 Ur Amphetamines Screen Negative 06/24/21 18:48 U Benzodiazepines Scrn Negative 06/24/21 18:48 Urine Cocaine Screen Negative 06/24/21 18:48 U Marijuana (THC) Screen Negative 06/24/21 18:48 Drugs of Abuse Note Disclamer 06/24/21 18:48 SARS-CoV-2 (PCR) Negative (Negative) 06/24/21 12:20 Blood Type A POSITIVE 06/20/21 15:07 Antibody Screen Negative 06/20/21 15:07 Mann/IV: Voiding Method Toilet Active Medications - Current Medications Current Medications: Generic Name Dose Route Start Last Admin Trade Name Freq PRN Reason Stop Dose Admin Acetaminophen 650 mg 06/20/21 19:08 Acetaminophen 325 Mg Tab PO Q4H PRN Pain MILD(1-3)/Fever >100.5/ALFREDO Hydrocodone Bitart/Acetaminophen 1 each 06/23/21 12:56 06/23/21 20:58 Hydrocodone/Acetaminophen 5-325 Mg Tab PO 1 each Q6H PRN Administration Pain, Moderate (4-6) Albuterol 2.5 mg 06/20/21 19:08 Albuterol 2.5 Mg/3 Ml Nebu IH Q4HRT PRN Shortness Of Breath Aripiprazole 15 mg 06/26/21 10:00 06/26/21 12:01 Aripiprazole 15 Mg Tab PO 15 mg QDAY KRYSTYNA Administration Atorvastatin Calcium 20 mg 06/20/21 22:00 06/26/21 22:17 Atorvastatin 20 Mg Tab PO 20 mg QHS KRYSTYNA Administration Docusate Sodium 100 mg 06/24/21 15:00 06/26/21 22:18 Docusate Sodium 100 Mg Cap PO 100 mg BID KRYSTYNA Administration Escitalopram Oxalate 10 mg 06/27/21 10:00 Escitalopram 10 Mg Tab PO QDAY KRYSTYNA Gabapentin 300 mg 06/20/21 20:00 06/27/21 08:26 Gabapentin 300 Mg Cap PO 300 mg TID KRYSTYNA Administration Hydromorphone HCl 0.5 mg 06/23/21 13:57 06/25/21 21:51 Hydromorphone 0.5 Mg/0.5 Ml Inj IV 0.5 mg Q3H PRN Administration Pain , Severe (7-10) Hydroxyzine Pamoate 25 mg 06/23/21 13:03 Hydroxyzine Pamoate 25 Mg Cap PO Q6H PRN Anxiety Lorazepam 1 mg 06/21/21 09:55 06/21/21 10:25 Lorazepam 2 Mg/Ml Vial IV 1 mg Q4H PRN Administration Anxiety Magnesium Citrate 300 ml 05/19/22 14:03 Magnesium Citrate 300 Ml Oral Liqd PO ONCE KRYSTYNA Magnesium Hydroxide 30 ml 06/22/21 17:27 06/25/21 22:34 Magnesium Hydroxide (Mom) Oral Liqd Udc PO 30 ml ONCE PRN Administration Constipation Magnesium Oxide 400 mg 06/21/21 10:00 06/26/21 12:01 Magnesium Oxide 400 Mg Tab PO 400 mg QDAY KRYSTYNA Administration Melatonin 10 mg 06/20/21 22:00 06/26/21 22:17 Melatonin 5 Mg Tab PO 10 mg HS KRYSTYNA Administration Metoclopramide HCl 5 mg 06/22/21 15:17 06/22/21 18:03 Metoclopramide 10 Mg/2 Ml Inj IV 5 mg Q8H PRN Administration Vomiting Metoprolol Tartrate 12.5 mg 06/20/21 22:00 06/26/21 22:17 Metoprolol Tartrate 25 Mg Tab PO 12.5 mg BID KRYSTYNA Administration Mirtazapine 15 mg 06/20/21 22:00 06/26/21 22:17 Mirtazapine 15 Mg Tab PO 15 mg QHS KRYSTYNA Administration Ondansetron HCl 4 mg 06/20/21 19:23 06/27/21 06:13 Ondansetron 4 Mg/2 Ml Inj IV 4 mg Q8H PRN Administration Nausea And Vomiting Pantoprazole Sodium 40 mg 06/22/21 07:30 06/27/21 08:26 Pantoprazole 40 Mg Tab PO 40 mg BIDAC KRYSTYNA Administration Scopolamine 1 each 06/24/21 16:00 06/24/21 15:01 Scopolamine Transdermal Patch 72 Hr TD 1 each Q3D KRYSTYNA Administration Sodium Chloride 10 ml 06/20/21 22:00 06/26/21 22:18 Sodium Chloride 0.9% 10 Ml Flush Syringe IV 10 ml BID KRYSTYNA Administration Sodium Chloride 10 ml 06/20/21 19:08 06/24/21 04:53 Sodium Chloride 0.9% 10 Ml Flush Syringe IV 10 ml PRN PRN Administration LINE FLUSH Nutrition/Malnutrition Assess - Dietary Evaluation Nutrition/Malnutrition Findings: Nutrition Notes Start: 06/21/21 15:26 Freq: Status: Active Protocol: Document 06/24/21 14:47 ANDREA (Rec: 06/24/21 15:13 ANDREA [id number]) Nutrition Notes Initial or Follow up Reassessment Current Diagnosis Hypertension Other Pertinent Diagnosis s/p Cholelithiasis/Biliary Dyskinesia, s/p UGIB/ Hematemesis/EGD, OHS, Psych Current Diet GI Soft Diet (since D 06/23). Labs/Tests 06/24: Crea 0.7. Pertinent Medications 06/24: Nutritionally unremarkable. Height 5 ft 9 in Weight 142 kg [place] Body Weight (kg) 72.72 BMI 46.2 Weight change and time frame Discrepancy of 14.7 Kg body weight gain in 3 days reported . Weight Status Morbidly Obese Subjective/Other Information RD consult for routine F/U on dietary advancement. Pt's PO intake of meals has been Good (100%), according to ADL notes. Pt is on Room Air, O2 saturation @ 96%, according to Physical Assessment History notes. Pt presents abdominal pain and back pain, according to Progress notes. Pt presents abdominal surgical wounds, according to Physical Assessment History notes. Pt still presenting nausea, but no vomiting, according to Progress notes. Procedure on 06/23: Laparoscopic cholecystectomy, well tolerated, according to Operative Report notes. Pt is clinically cleared for discharge to an Inpatient Psychiatric Facility, according to Progress notes. Percent of energy/protein needs met: Prescribed GI Soft Diet provides for energy/protein needs (2,000 Kcal/82 g) during LOS. Burn Absent Trauma Absent GI Symptoms Nausea Food Allergy No Skin Integrity/Comment Abdominal surgical wounds. Current % PO Good (75-100%) Minimum of two criteria No #1 Nutrition Diagnosis Altered GI function Comments: Pt is s/p Cholelithiasis/ Biliary Dyskinesia, s/p UGIB/ Hematemesis/EGD. Diagnosis Progress(for reassessment Improved documentation) Is patient on ventilator? No Is Patient Ambulatory and/or Out of Bed Yes REE-([place]-ambulatory/OOB) [ 3042.494 [id number]] Kcal/Kg value to use for calculation 14 Approximate Energy Requirements Using 1988 kcal/Kg Calculation Used for Recommendations Kcal/kg Additional Notes Protein: 0.8-1 g/Kg AdjBW; 80- 100 g/day. Fluids: 1 ml/Kcal, or as per MD. Nutrition Intervention Change Diet Order: Continue GI Soft diet, as tolerated; when pertinent, advance towards Regular Diet. Goal #1 Adjust the dietary intervention to better serve Pt's needs and clinical conditions during LOS. Goal #2 Facilitate PO intake of meals with elemental, textural, or mechanical modification during LOS. Goal #3 Maintain body weight within +/ -3% of admission body weight during LOS. Revisit per MD consult or patient Sign Off request: Additional Comments Continue monitoring food tolerance, %PO intake of meals , and BM.
[2021-06-27] MEDS ORDERED: ESCITALOPRAM 10 MG TAB PO SCH (10:00)
[2021-06-27] MEDS: MAGNESIUM OXIDE 400 MG TAB PO SCH (10:48)
[2021-06-27] MEDS: DOCUSATE SODIUM 100 MG CAP PO SCH ×2 (10:48→22:42)
[2021-06-27] MEDS: METOPROLOL TARTRATE 25 MG TAB PO SCH ×2 (10:48→22:42)
[2021-06-27] MEDS: SCOPOLAMINE TRANSDERMAL PATCH 72 HR TD SCH (10:48)
--- NOTE | 2021-06-27 12:45 | Progress Note ---
Subjective - Reason for Consult Consult date: 06/27/21 Reason for consult: SI - Chief Complaint Chief complaint: The patient was seen today. The patient is irritable. He says he wants to walk out of here. He says "If I had a gun right now, I would blow my brains out." He says "I got a lot on my mind and don't want to be bothered." REVIEW OF SYSTEMS Constitutional: Negative for weight loss ENT: Negative for stridor Respiratory: Negative for cough or hemoptysis All other systems reviewed and are negative MENTAL STATUS EXAMINATION General Appearance and Behavior: Age appropriate, wearing appropriate clothes, cooperative, polite with questioning, good eye contact, calm, polite Cooperation: cooperative Psychomotor Behavior: Psychomotor normal Mood: anxious/ depressed Affect and affective range: Congruent with stated mood Thought Process: Goal directed Thought Content:suicidal Speech: Normal volume, Regular rate and rhythm Suicidal Ideation: suicidal Homicidal Ideation: Denies Hallucination: Auditory, command Delusions: None elicited Impulse Control: limited Insight and Judgment: Limited Memory: Intact Attention: attentive Orientation: Alert and oriented Diagnoses: Schizophrenia Treatment Plan 1013 Abilify 15mg po daily Increase Lexapro 20mg po daily Start Depakote DR 125mg po BID PSYCHOTHERAPY: Supportive psychotherapy provided MEDICAL: Per primary team DELIRIUM PRECAUTIONS: Please re-orient patient frequently, keep lights on during the day, and minimize benzodiazepines and opiates as these medications could worsen patient's confusion. 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 Will follow. Thank you for the consult. Case staffed with Dr. Sanchez Mental Status Exam - Vital signs Last Vital Signs Temp 97.4 F L 06/27/21 11:29 Pulse 100 H 06/27/21 11:29 Resp 18 06/27/21 11:29 BP 134/85 06/27/21 11:29 Pulse Ox 96 06/27/21 11:29
[2021-06-27] MEDS: ARIPiprazole 15 MG TAB PO SCH (14:32)
[2021-06-27] MEDS: DIVALPROEX DR 125 MG TAB PO SCH ×2 (14:32→22:43)
--- NOTE | 2021-06-27 18:45 | Event Note ---
Date: 06/27/21 Patient's WBC today is 11.8[normal range 4.5-11.0] 0.8 variation in WBC is clinically insignificant As patient does not have fever, no upper respiratory symptoms, no urinary symptoms Urine analysis is negative for any evidence of UTI Chest x-ray no acute infectious process, atypical findings on the chest x-ray probably viral However patient's COVID-19 test is negative. Patient is medically cleared for discharge, on oral Ceftin x 5 days .patient is hemodynamically and clinically stable for discharge from medical standpoint. Medically cleared for discharge and transfer to psych facility Disposition per psych, pending transfer to inpatient psych facility.
[2021-06-27] MEDS: MIRTAZAPINE 15 MG TAB PO SCH (22:42)
[2021-06-27] MEDS: MELATONIN 5 MG TAB PO SCH (22:42)
[2021-06-28] MEDS: PANTOPRAZOLE 40 MG TAB PO SCH ×2 (08:54→18:22)
[2021-06-28] MEDS: GABAPENTIN 300 MG CAP PO SCH ×3 (08:54→22:05)
[2021-06-28] MEDS: DOCUSATE SODIUM 100 MG CAP PO SCH ×2 (09:00→22:05)
[2021-06-28] MEDS: ARIPiprazole 15 MG TAB PO SCH (09:01)
[2021-06-28] MEDS: MAGNESIUM OXIDE 400 MG TAB PO SCH (09:01)
[2021-06-28] MEDS: DIVALPROEX DR 125 MG TAB PO SCH (09:01)
[2021-06-28] MEDS: ESCITALOPRAM 10 MG TAB PO SCH (09:01)
[2021-06-28] MEDS: METOPROLOL TARTRATE 25 MG TAB PO SCH ×2 (09:02→22:04)
--- NOTE | 2021-06-28 14:44 | Progress Note ---
Subjective - Reason for Consult Consult date: 06/28/21 Reason for consult: SI - Chief Complaint Chief complaint: The patient was seen today. He is angry and says he's not getting any better. The patient says "I'm depressed and nobody is helping. The meds are not working." The patient says "when I get out of here, I'm ending my life. I'm going to blow my brains out." He says he just got out [facility] a month ago and have no resources or support system. The patient says "I can't live like this." He denies hallucinations. REVIEW OF SYSTEMS Constitutional: Negative for weight loss ENT: Negative for stridor Respiratory: Negative for cough or hemoptysis All other systems reviewed and are negative MENTAL STATUS EXAMINATION General Appearance and Behavior: Age appropriate, wearing appropriate clothes, cooperative, polite with questioning, good eye contact, calm, polite Cooperation: cooperative Psychomotor Behavior: Psychomotor normal Mood: anxious/ depressed Affect and affective range: Congruent with stated mood Thought Process: Goal directed Thought Content:suicidal Speech: Normal volume, Regular rate and rhythm Suicidal Ideation: suicidal Homicidal Ideation: Denies Hallucination: Auditory, command Delusions: None elicited Impulse Control: limited Insight and Judgment: Limited Memory: Intact Attention: attentive Orientation: Alert and oriented Diagnoses: Schizophrenia Treatment Plan 1013 Increase Abilify 20mg po daily Lexapro 20mg po daily Increase Depakote DR 250mg po BID PSYCHOTHERAPY: Supportive psychotherapy provided MEDICAL: Per primary team DELIRIUM PRECAUTIONS: Please re-orient patient frequently, keep lights on during the day, and minimize benzodiazepines and opiates as these medications could worsen patient's confusion. 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 Will follow. Thank you for the consult. Case staffed with Dr. Sanchez Mental Status Exam - Vital signs Last Vital Signs Temp 97.7 F 06/28/21 11:52 Pulse 95 H 06/28/21 11:52 Resp 20 06/28/21 11:52 BP 144/81 06/28/21 11:52 Pulse Ox 95 06/28/21 11:52
[2021-06-28] MEDS ORDERED: risperiDONE 0.25 MG TAB PO SCH (15:00)
[2021-06-28 19:28] LABS: Hemoglobin 13.3 gm/dl (11.8-15.2); Mean Corpuscular HGB Conc 32 % (32-34); Mean Corpuscular Volume 82 fl (84-94); Platelet Count 362 K/mm3 (140-440); Red Blood Count 5.01 M/mm3 (3.65-5.03)
--- NOTE | 2021-06-28 20:02 | Progress Note ---
Assessment and Plan Assessment and plan: 36 YO Male with HTN, Obesity Hypoventilation Syndrome, GERD, Neuropathy, Psychosis NOS presents ED for evaluation of hematemesis with 3-4 episodes of vomiting of blood over the past 3 days. Patient states his symptoms have been accompanied by abdominal discomfort. The patient was seen and evaluated in the emergency department. All lab and imaging studies reviewed. Patient had a witnessed episode of hematemesis while in the emergency department. GI team was consulted. Assessment and plan: --Persistent leukocytosis; without evidence of any infectious process Today WBCs 11.8[normal range 4.5-11.0], 17.7 today Patient has no fever, urine analysis is negative for infection Patient has no urinary or upper respiratory symptoms, will check chest x-ray If negative patient is medically cleared for discharge. Psych will pursue placement -- Contracted gallbladder ; Surgery evaluated the patient s/p cholecystectomy Continue postop care Surgery cleared for discharge UGIB/hematemesis; s/p EGD, Protonix and supportive care Esophagitis induced hematemesis Continue current management No new episodes of bleeding H&H stable GI cleared for discharge Abdominal pain; resolved Hypertension; well-controlled Obesity hypoventilation syndrome; advised diet modification exercise as tolerated and weight reduction Psychosis/1013 status GERD; Protonix 06/21/2021. The patient underwent EGD which revealed minimal gastritis throughout the stomach. Patient also had a 5 mm single sessile benign-appearing gastric polyp in the gastric body. The patient also had localized area of esophagitis at the GE junction with overlying blood. This appeared to be related to simple esophagitis with no evidence of Arminda-Cobian tear. Continue PPI twice daily. We will also perform HIDA scan with ejection fraction to rule out biliary dyskinesia as potential etiology for patient's abdominal pain. GI following. Psych has been consulted for patient's history of psychosis. Resume home psych medications 06/1821; s/p lap cholecystectomy Continue postop care Surgery cleared for psych placement DC planning per case management Possible inpatient psych placement 06/24/21; GI and surgery cleared for discharge Patient is medically stable for discharge, disposition per psychiatry 06/25/21 medically cleared for discharge to inpatient psych facility 06/26/2021; patient is medically cleared for discharge, urine drug screen negative, COVID-19 test negative, urine analysis negative for abnormality Patient can be placed inpatient psych facility further evaluation and management 06/27/21; patient's WBC is 11.8 today, normal range 4.5-11.0 ,clinically insignificant Patient is afebrile, urinalysis is normal, no evidence of infection, no pulmonary symptoms, will check chest x-ray If negative patient is cleared medically for discharge. Disposition per psych 06/28; persistent leukocytosis, WBC 17.7, afebrile, no upper respiratory symptoms or urinary symptoms We will check urine cultures, blood cultures, consult ID if no improvement tomorrow Plan of care reviewed with the patient and his nurse Patient continues to have aggressive suicidal thoughts and ideation, management per psych History Interval history: I seen and examined the patient at the bedside Patient's chart and medications reviewed No new events reported by nursing staff Patient has persistent leukocytosis Today WBC is 17.7 . Afebrile On oral Ceftin to treat nonspecific chest x-ray findings Patient complains of suicidal thoughts and ideation 1013 status Hospitalist Physical - Constitutional Vitals: Temp Pulse Resp BP Pulse Ox 97.7 F 95 H 20 144/81 95 06/28/21 11:52 06/28/21 11:52 06/28/21 11:52 06/28/21 11:52 06/28/21 11:52 General appearance: Present: no acute distress, well-nourished, obese - EENT Eyes: Present: PERRL, EOM intact - Neck Neck: Present: supple, normal ROM - Respiratory Respiratory effort: normal Respiratory: bilateral: diminished, negative: rales, rhonchi, wheezing - Cardiovascular Rhythm: regular Heart Sounds: Present: S1 & S2 - Extremities Extremities: no ischemia, No edema - Abdominal General gastrointestinal: soft, non-tender, non-distended, normal bowel sounds - Integumentary Integumentary: Present: clear, warm - Psychiatric Psychiatric: appropriate mood/affect, agitated, other (Suicidal ideation) - Neurologic Neurologic: CNII-XII intact, moves all extremities Results - Labs CBC & Chem 7: 06/28/21 18:51 06/20/21 16:02 Labs: Laboratory Last Values WBC 17.7 K/mm3 (4.5-11.0) H 06/28/21 18:51 RBC 5.01 M/mm3 (3.65-5.03) 06/28/21 18:51 Hgb 13.3 gm/dl (11.8-15.2) 06/28/21 18:51 Hct 41.0 % (35.5-45.6) 06/28/21 18:51 MCV 82 fl (84-94) L 06/28/21 18:51 MCH 27 pg (28-32) L 06/28/21 18:51 MCHC 32 % (32-34) 06/28/21 18:51 RDW 15.0 % (13.2-15.2) 06/28/21 18:51 Plt Count 362 K/mm3 (140-440) 06/28/21 18:51 Lymph % (Auto) 14.6 % (13.4-35.0) 06/27/21 05:50 Sebastian % (Auto) 8.6 % (0.0-7.3) H 06/27/21 05:50 Eos % (Auto) 2.0 % (0.0-4.3) 06/27/21 05:50 Baso % (Auto) 0.4 % (0.0-1.8) 06/27/21 05:50 Lymph # (Auto) 1.7 K/mm3 (1.2-5.4) 06/27/21 05:50 Sebastian # (Auto) 1.0 K/mm3 (0.0-0.8) H 06/27/21 05:50 Eos # (Auto) 0.2 K/mm3 (0.0-0.4) 06/27/21 05:50 Baso # (Auto) 0.0 K/mm3 (0.0-0.1) 06/27/21 05:50 Seg Neutrophils % 74.4 % (40.0-70.0) H 06/27/21 05:50 Seg Neutrophils # 8.8 K/mm3 (1.8-7.7) H 06/27/21 05:50 PT 13.0 Sec. (12.2-14.9) 06/20/21 16:02 INR 0.89 (0.87-1.13) 06/20/21 16:02 APTT 25.4 Sec. (24.2-36.6) 06/20/21 16:02 Sodium 139 mmol/L (137-145) 06/20/21 16:02 Potassium 4.1 mmol/L (3.6-5.0) 06/20/21 16:02 Chloride 102.8 mmol/L (98-107) 06/20/21 16:02 Carbon Dioxide 27 mmol/L (22-30) 06/20/21 16:02 Anion Gap 13 mmol/L 06/20/21 16:02 BUN 10 mg/dL (9-20) 06/20/21 16:02 Creatinine 0.7 mg/dL (0.8-1.3) L 06/20/21 16:02 Estimated GFR > 60 ml/min 06/20/21 16:02 BUN/Creatinine Ratio 14 % 06/20/21 16:02 Glucose 91 mg/dL (75-100) 06/20/21 16:02 Lactic Acid 1.60 mmol/L (0.7-2.0) 06/20/21 16:02 Calcium 8.4 mg/dL (8.4-10.2) 06/20/21 16:02 Magnesium 2.10 mg/dL (1.7-2.3) 06/20/21 16:02 Total Bilirubin 0.30 mg/dL (0.1-1.2) 06/20/21 16:02 AST 16 units/L (5-40) 06/20/21 16:02 ALT 28 units/L (7-56) 06/20/21 16:02 Alkaline Phosphatase 110 units/L (35-129) 06/20/21 16:02 Total Protein 6.9 g/dL (6.3-8.2) 06/20/21 16:02 Albumin 3.7 g/dL (3.9-5) L 06/20/21 16:02 Albumin/Globulin Ratio 1.2 % 06/20/21 16:02 Lipase 13 units/L (13-60) 06/20/21 16:02 Urine Color Yellow (Yellow) 06/24/21 18:48 Urine Turbidity Clear (Clear) 06/24/21 18:48 Urine pH 5.0 (5.0-7.0) 06/24/21 18:48 Ur Specific [place] 1.023 (1.003-1.030) 06/24/21 18:48 Urine Protein <15 mg/dl mg/dL (Negative) 06/24/21 18:48 Urine Glucose (UA) Neg mg/dL (Negative) 06/24/21 18:48 Urine Ketones Neg mg/dL (Negative) 06/24/21 18:48 Urine Blood Neg (Negative) 06/24/21 18:48 Urine Nitrite Neg (Negative) 06/24/21 18:48 Urine Bilirubin Neg (Negative) 06/24/21 18:48 Urine Urobilinogen < 2.0 mg/dL (<2.0) 06/24/21 18:48 Ur Leukocyte Esterase Neg (Negative) 06/24/21 18:48 Urine WBC (Auto) 1.0 /HPF (0.0-6.0) 06/24/21 18:48 Urine RBC (Auto) 2.0 /HPF (0.0-6.0) 06/24/21 18:48 Urine Mucus Few /HPF 06/24/21 18:48 Urine Sperm Few /HPF (MANAGER RESPIRATORY) 06/24/21 18:48 Urine Opiates Screen Negative 06/24/21 18:48 Urine Methadone Screen Negative 06/24/21 18:48 Ur Barbiturates Screen Negative 06/24/21 18:48 Ur Phencyclidine Scrn Negative 06/24/21 18:48 Ur Amphetamines Screen Negative 06/24/21 18:48 U Benzodiazepines Scrn Negative 06/24/21 18:48 Urine Cocaine Screen Negative 06/24/21 18:48 U Marijuana (THC) Screen Negative 06/24/21 18:48 Drugs of Abuse Note Disclamer 06/24/21 18:48 SARS-CoV-2 (PCR) Negative (Negative) 06/24/21 12:20 Blood Type A POSITIVE 06/20/21 15:07 Antibody Screen Negative 06/20/21 15:07 Mann/IV: Voiding Method Toilet Active Medications - Current Medications Current Medications: Generic Name Dose Route Start Last Admin Trade Name Freq PRN Reason Stop Dose Admin Acetaminophen 650 mg 06/20/21 19:08 Acetaminophen 325 Mg Tab PO Q4H PRN Pain MILD(1-3)/Fever >100.5/ALFREDO Hydrocodone Bitart/Acetaminophen 1 each 06/23/21 12:56 06/23/21 20:58 Hydrocodone/Acetaminophen 5-325 Mg Tab PO 1 each Q6H PRN Administration Pain, Moderate (4-6) Albuterol 2.5 mg 06/20/21 19:08 Albuterol 2.5 Mg/3 Ml Nebu IH Q4HRT PRN Shortness Of Breath Aripiprazole 20 mg 06/29/21 10:00 Aripiprazole 10 Mg Tab PO QDAY KRYSTYNA Atorvastatin Calcium 20 mg 06/20/21 22:00 06/27/21 22:42 Atorvastatin 20 Mg Tab PO 20 mg QHS KRYSTYNA Administration Cefuroxime Axetil 500 mg 06/27/21 22:00 06/28/21 09:00 Cefuroxime 250 Mg Tab PO 07/02/21 10:01 500 mg Q12HR KRYSTYNA Administration Divalproex Sodium 250 mg 06/28/21 22:[address] 250 Mg Tab PO BID KRYSTYNA Docusate Sodium 100 mg 06/24/21 15:00 06/28/21 09:00 Docusate Sodium 100 Mg Cap PO 100 mg BID KRYSTYNA Administration Escitalopram Oxalate 20 mg 06/28/21 10:00 06/28/21 09:01 Escitalopram 10 Mg Tab PO 20 mg QDAY KRYSTYNA Administration Gabapentin 300 mg 06/20/21 20:00 06/28/21 13:39 Gabapentin 300 Mg Cap PO 300 mg TID KRYSTYNA Administration Hydromorphone HCl 0.5 mg 06/23/21 13:57 06/25/21 21:51 Hydromorphone 0.5 Mg/0.5 Ml Inj IV 0.5 mg Q3H PRN Administration Pain , Severe (7-10) Hydroxyzine Pamoate 25 mg 06/23/21 13:03 Hydroxyzine Pamoate 25 Mg Cap PO Q6H PRN Anxiety Lorazepam 1 mg 06/21/21 09:55 06/21/21 10:25 Lorazepam 2 Mg/Ml Vial IV 1 mg Q4H PRN Administration Anxiety Magnesium Citrate 300 ml 06/24/21 14:03 Magnesium Citrate 300 Ml Oral Liqd PO ONCE KRYSTYNA Magnesium Hydroxide 30 ml 06/22/21 17:27 06/25/21 22:34 Magnesium Hydroxide (Mom) Oral Liqd Udc PO 30 ml ONCE PRN Administration Constipation Magnesium Oxide 400 mg 06/21/21 10:00 06/28/21 09:01 Magnesium Oxide 400 Mg Tab PO 400 mg QDAY KRYSTYNA Administration Melatonin 10 mg 06/20/21 22:00 06/27/21 22:42 Melatonin 5 Mg Tab PO 10 mg HS [facility] Administration Metoclopramide HCl 5 mg 06/22/21 15:17 06/22/21 18:03 Metoclopramide 10 Mg/2 Ml Inj IV 5 mg Q8H PRN Administration Vomiting Metoprolol Tartrate 12.5 mg 06/20/21 22:00 06/28/21 09:02 Metoprolol Tartrate 25 Mg Tab PO 12.5 mg BID KRYSTYNA Administration Mirtazapine 15 mg 06/20/21 22:00 06/27/21 22:42 Mirtazapine 15 Mg Tab PO 15 mg QHS KRYSTYNA Administration Ondansetron HCl 4 mg 06/20/21 19:23 06/27/21 06:13 Ondansetron 4 Mg/2 Ml Inj IV 4 mg Q8H PRN Administration Nausea And Vomiting Pantoprazole Sodium 40 mg 06/22/21 07:30 06/28/21 18:22 Pantoprazole 40 Mg Tab PO 40 mg BIDAC KRYSTYNA Administration Scopolamine 1 each 06/24/21 16:00 06/27/21 10:48 Scopolamine Transdermal Patch 72 Hr TD 1 each Q3D KRYSTYNA Administration Sodium Chloride 10 ml 06/20/21 22:00 06/28/21 09:01 Sodium Chloride 0.9% 10 Ml Flush Syringe IV 10 ml BID KRYSTYNA Administration Sodium Chloride 10 ml 06/20/21 19:08 06/24/21 04:53 Sodium Chloride 0.9% 10 Ml Flush Syringe IV 10 ml PRN PRN Administration LINE FLUSH Nutrition/Malnutrition Assess - Dietary Evaluation Nutrition/Malnutrition Findings: Nutrition Notes Start: 06/21/21 15:26 Freq: Status: Active Protocol: Document 06/24/21 14:47 ANDREA (Rec: 06/24/21 15:13 ANDREA [email or web address]) Nutrition Notes Initial or Follow up Reassessment Current Diagnosis Hypertension Other Pertinent Diagnosis s/p Cholelithiasis/Biliary Dyskinesia, s/p UGIB/ Hematemesis/EGD, OHS, Psych Current Diet GI Soft Diet (since D 06/23). Labs/Tests 06/24: Crea 0.7. Pertinent Medications 06/24: Nutritionally unremarkable. Height 5 ft 9 in Weight 142 kg [place] Body Weight (kg) 72.72 BMI 46.2 Weight change and time frame Discrepancy of 14.7 Kg body weight gain in 3 days reported . Weight Status Morbidly Obese Subjective/Other Information RD consult for routine F/U on dietary advancement. Pt's PO intake of meals has been Good (100%), according to ADL notes. Pt is on Room Air, O2 saturation @ 96%, according to Physical Assessment History notes. Pt presents abdominal pain and back pain, according to Progress notes. Pt presents abdominal surgical wounds, according to Physical Assessment History notes. Pt still presenting nausea, but no vomiting, according to Progress notes. Procedure on 06/23: Laparoscopic cholecystectomy, well tolerated, according to Operative Report notes. Pt is clinically cleared for discharge to an Inpatient Psychiatric Facility, according to Progress notes. Percent of energy/protein needs met: Prescribed GI Soft Diet provides for energy/protein needs (2,000 Kcal/82 g) during LOS. Burn Absent Trauma Absent GI Symptoms Nausea Food Allergy No Skin Integrity/Comment Abdominal surgical wounds. Current % PO Good (75-100%) Minimum of two criteria No #1 Nutrition Diagnosis Altered GI function Comments: Pt is s/p Cholelithiasis/ Biliary Dyskinesia, s/p UGIB/ Hematemesis/EGD. Diagnosis Progress(for reassessment Improved documentation) Is patient on ventilator? No Is Patient Ambulatory and/or Out of Bed Yes REE-([facility]-ambulatory/OOB) [ 3042.494 [id number]] Kcal/Kg value to use for calculation 14 Approximate Energy Requirements Using 1988 kcal/Kg Calculation Used for Recommendations Kcal/kg Additional Notes Protein: 0.8-1 g/Kg AdjBW; 80- 100 g/day. Fluids: 1 ml/Kcal, or as per MD. Nutrition Intervention Change Diet Order: Continue GI Soft diet, as tolerated; when pertinent, advance towards Regular Diet. Goal #1 Adjust the dietary intervention to better serve Pt's needs and clinical conditions during LOS. Goal #2 Facilitate PO intake of meals with elemental, textural, or mechanical modification during LOS. Goal #3 Maintain body weight within +/ -3% of admission body weight during LOS. Revisit per MD consult or patient Sign Off request: Additional Comments Continue monitoring food tolerance, %PO intake of meals , and BM.
[2021-06-28] MEDS: MIRTAZAPINE 15 MG TAB PO SCH (22:05)
[2021-06-28] MEDS: MELATONIN 5 MG TAB PO SCH (22:05)
[2021-06-28] MEDS: DIVALPROEX DR 250 MG TAB PO SCH (22:06)
[2021-06-29] MEDS: METOPROLOL TARTRATE 25 MG TAB PO SCH ×2 (09:29→22:03)
[2021-06-29] MEDS: ARIPiprazole 10 MG TAB PO SCH (09:29)
[2021-06-29] MEDS: DOCUSATE SODIUM 100 MG CAP PO SCH ×2 (09:29→22:05)
[2021-06-29] MEDS: GABAPENTIN 300 MG CAP PO SCH ×3 (09:29→22:04)
[2021-06-29] MEDS: ESCITALOPRAM 10 MG TAB PO SCH (09:29)
[2021-06-29] MEDS: MAGNESIUM OXIDE 400 MG TAB PO SCH (09:30)
[2021-06-29] MEDS: PANTOPRAZOLE 40 MG TAB PO SCH ×2 (09:41→16:05)
[2021-06-29] MEDS: ONDANSETRON 4 MG/2 ML INJ IV PRN ×2 (12:45→18:13)
[2021-06-29] MEDS: DIVALPROEX DR 250 MG TAB PO SCH ×2 (12:46→22:04)
--- NOTE | 2021-06-29 14:21 | Progress Note ---
Subjective - Reason for Consult Consult date: 06/29/21 Reason for consult: SI - Chief Complaint Chief complaint: The patient was seen today. He is upset and wanders why he hasn't gone to an inpatient facility. Explained to the patient that his white count is up and he are awaiting it to normalize. He says "just let me go kill myself. I'm getting worse and nobody is helping." The patient says "I'm very depressed. But I understand that it is a process." The patient denies hallucinations. REVIEW OF SYSTEMS Constitutional: Negative for weight loss ENT: Negative for stridor Respiratory: Negative for cough or hemoptysis All other systems reviewed and are negative MENTAL STATUS EXAMINATION General Appearance and Behavior: Age appropriate, wearing appropriate clothes, cooperative, polite with questioning, good eye contact, calm, polite Cooperation: cooperative Psychomotor Behavior: Psychomotor normal Mood: anxious/ depressed Affect and affective range: Congruent with stated mood Thought Process: Goal directed Thought Content:suicidal Speech: Normal volume, Regular rate and rhythm Suicidal Ideation: suicidal Homicidal Ideation: Denies Hallucination: Auditory, command Delusions: None elicited Impulse Control: limited Insight and Judgment: Limited Memory: Intact Attention: attentive Orientation: Alert and oriented Diagnoses: Schizophrenia Treatment Plan 1013 Abilify 20mg po daily Lexapro 20mg po daily Increase Depakote DR 250mg po BID PSYCHOTHERAPY: Supportive psychotherapy provided MEDICAL: Per primary team DELIRIUM PRECAUTIONS: Please re-orient patient frequently, keep lights on during the day, and minimize benzodiazepines and opiates as these medications could worsen patient's confusion. 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 Will follow. Thank you for the consult. Case staffed with Dr. Sanchez Mental Status Exam - Vital signs Last Vital Signs Temp 98.5 F 06/29/21 11:13 Pulse 95 H 06/29/21 11:13 Resp 18 06/29/21 11:13 BP 128/69 06/29/21 11:13 Pulse Ox 95 06/29/21 11:13
--- NOTE | 2021-06-29 18:11 | Progress Note ---
Assessment and Plan Assessment and plan: Assessment and plan: --Persistent leukocytosis; without evidence of any infectious process Today WBCs 11.8[normal range 4.5-11.0], 17.7 today Patient has no fever, urine analysis is negative for infection Patient has no urinary or upper respiratory symptoms, will check chest x-ray Patient's process on chest x-ray however started on empiric antibiotics Ceftin for 5 days Monitor clinically and monitor WBC count. Patient may be discharged to inpatient psych facility when medically cleared -- Contracted gallbladder ; Surgery evaluated the patient s/p cholecystectomy Continue postop care Surgery cleared for discharge UGIB/hematemesis; s/p EGD, Protonix and supportive care Esophagitis induced hematemesis Continue current management No new episodes of bleeding H&H stable GI cleared for discharge Abdominal pain; resolved Hypertension; well-controlled Obesity hypoventilation syndrome; advised diet modification exercise as tolerated and weight reduction Psychosis/1013 status GERD; Protonix We will monitor the patient and adjust management as needed Discharge the patient when medically cleared Disposition; once patient is medically cleared patient will be discharged to inpatient psych Brief history and daily hospital course 36 YO Male with HTN, Obesity Hypoventilation Syndrome, GERD, Neuropathy, Psychosis NOS presents ED for evaluation of hematemesis with 3-4 episodes of vomiting of blood over the past 3 days. Patient states his symptoms have been accompanied by abdominal discomfort. The patient was seen and evaluated in the emergency department. All lab and imaging studies reviewed. Patient had a witnessed episode of hematemesis while in the emergency department. GI team was consulted. Underwent EGD, esophagitis and just hematemesis, since then no new episodes of bleeding Patient also had contracted gallbladder, had lap cholecystectomy, symptoms resolved Currently patient is having persistent leukocytosis, though no overwhelming or significant infectious process, psych is refusing to accept till patient is medically cleared with normal WBC. 06/21/2021. The patient underwent EGD which revealed minimal gastritis throughout the stomach. Patient also had a 5 mm single sessile benign-appearing gastric polyp in the gastric body. The patient also had localized area of esophagitis at the GE junction with overlying blood. This appeared to be related to simple esophagitis with no evidence of Arminda-Cobian tear. Continue PPI twice daily. We will also perform HIDA scan with ejection fraction to rule out biliary dyskinesia as potential etiology for patient's abdominal pain. GI following. Psych has been consulted for patient's history of psychosis. Resume home psych medications 06/1821; s/p lap cholecystectomy Continue postop care Surgery cleared for psych placement DC planning per case management Possible inpatient psych placement 06/24/21; GI and surgery cleared for discharge Patient is medically stable for discharge, disposition per psychiatry 06/25/21 medically cleared for discharge to inpatient psych facility 06/26/2021; patient is medically cleared for discharge, urine drug screen negative, COVID-19 test negative, urine analysis negative for abnormality Patient can be placed inpatient psych facility further evaluation and management 06/27/21; patient's WBC is 11.8 today, normal range 4.5-11.0 ,clinically insi gnificant Patient is afebrile, urinalysis is normal, no evidence of infection, no pulmonary symptoms, will check chest x-ray If negative patient is cleared medically for discharge. Disposition per psych 06/28; persistent leukocytosis, WBC 17.7, afebrile, no upper respiratory symptoms or urinary symptoms We will check urine cultures, blood cultures, consult ID if no improvement tomorrow Plan of care reviewed with the patient and his nurse Patient continues to have aggressive suicidal thoughts and ideation, management per psych 06/29/2021; patient feels better, continues to express suicidal thoughts and ideation 1013 status Persistent leukocytosis, chest x-ray reviewed no acute infectious process, empiric antibiotics with Ceftin for 5 days Patient may be discharged to inpatient psych facility once medically cleared Hospitalist Physical - Constitutional Vitals: Temp Pulse Resp BP Pulse Ox 98.5 F 95 H 18 128/69 95 06/29/21 11:13 06/29/21 11:13 06/29/21 11:13 06/29/21 11:13 06/29/21 11:13 General appearance: Present: no acute distress, well-nourished, obese Results - Labs CBC & Chem 7: 06/28/21 18:51 06/20/21 16:02 Labs: Laboratory Last Values WBC 17.7 K/mm3 (4.5-11.0) H 06/28/21 18:51 RBC 5.01 M/mm3 (3.65-5.03) 06/28/21 18:51 Hgb 13.3 gm/dl (11.8-15.2) 06/28/21 18:51 Hct 41.0 % (35.5-45.6) 06/28/21 18:51 MCV 82 fl (84-94) L 06/28/21 18:51 MCH 27 pg (28-32) L 06/28/21 18:51 MCHC 32 % (32-34) 06/28/21 18:51 RDW 15.0 % (13.2-15.2) 06/28/21 18:51 Plt Count 362 K/mm3 (140-440) 06/28/21 18:51 Lymph % (Auto) 14.6 % (13.4-35.0) 06/27/21 05:50 [place] % (Auto) 8.6 % (0.0-7.3) H 06/27/21 05:50 Eos % (Auto) 2.0 % (0.0-4.3) 06/27/21 05:50 Baso % (Auto) 0.4 % (0.0-1.8) 06/27/21 05:50 Lymph # (Auto) 1.7 K/mm3 (1.2-5.4) 06/27/21 05:50 [place] # (Auto) 1.0 K/mm3 (0.0-0.8) H 06/27/21 05:50 Eos # (Auto) 0.2 K/mm3 (0.0-0.4) 06/27/21 05:50 Baso # (Auto) 0.0 K/mm3 (0.0-0.1) 06/27/21 05:50 Seg Neutrophils % 74.4 % (40.0-70.0) H 06/27/21 05:50 Seg Neutrophils # 8.8 K/mm3 (1.8-7.7) H 06/27/21 05:50 PT 13.0 Sec. (12.2-14.9) 06/20/21 16:02 INR 0.89 (0.87-1.13) 06/20/21 16:02 APTT 25.4 Sec. (24.2-36.6) 06/20/21 16:02 Sodium 139 mmol/L (137-145) 06/20/21 16:02 Potassium 4.1 mmol/L (3.6-5.0) 06/20/21 16:02 Chloride 102.8 mmol/L (98-107) 06/20/21 16:02 Carbon Dioxide 27 mmol/L (22-30) 06/20/21 16:02 Anion Gap 13 mmol/L 06/20/21 16:02 BUN 10 mg/dL (9-20) 06/20/21 16:02 Creatinine 0.7 mg/dL (0.8-1.3) L 06/20/21 16:02 Estimated GFR > 60 ml/min 06/20/21 16:02 BUN/Creatinine Ratio 14 % 06/20/21 16:02 Glucose 91 mg/dL (75-100) 06/20/21 16:02 Lactic Acid 1.60 mmol/L (0.7-2.0) 06/20/21 16:02 Calcium 8.4 mg/dL (8.4-10.2) 06/20/21 16:02 Magnesium 2.10 mg/dL (1.7-2.3) 06/20/21 16:02 Total Bilirubin 0.30 mg/dL (0.1-1.2) 06/20/21 16:02 AST 16 units/L (5-40) 06/20/21 16:02 ALT 28 units/L (7-56) 06/20/21 16:02 Alkaline Phosphatase 110 units/L (35-129) 06/20/21 16:02 Total Protein 6.9 g/dL (6.3-8.2) 06/20/21 16:02 Albumin 3.7 g/dL (3.9-5) L 06/20/21 16:02 Albumin/Globulin Ratio 1.2 % 06/20/21 16:02 Lipase 13 units/L (13-60) 06/20/21 16:02 Urine Color Yellow (Yellow) 06/24/21 18:48 Urine Turbidity Clear (Clear) 06/24/21 18:48 Urine pH 5.0 (5.0-7.0) 06/24/21 18:48 Ur Specific [place] 1.023 (1.003-1.030) 06/24/21 18:48 Urine Protein <15 mg/dl mg/dL (Negative) 06/24/21 18:48 Urine Glucose (UA) Neg mg/dL (Negative) 06/24/21 18:48 Urine Ketones Neg mg/dL (Negative) 06/24/21 18:48 Urine Blood Neg (Negative) 06/24/21 18:48 Urine Nitrite Neg (Negative) 06/24/21 18:48 Urine Bilirubin Neg (Negative) 06/24/21 18:48 Urine Urobilinogen < 2.0 mg/dL (<2.0) 06/24/21 18:48 Ur Leukocyte Esterase Neg (Negative) 06/24/21 18:48 Urine WBC (Auto) 1.0 /HPF (0.0-6.0) 06/24/21 18:48 Urine RBC (Auto) 2.0 /HPF (0.0-6.0) 06/24/21 18:48 Urine Mucus Few /HPF 06/24/21 18:48 Urine Sperm Few /HPF ([employer]) 06/24/21 18:48 Urine Opiates Screen Negative 06/24/21 18:48 Urine Methadone Screen Negative 06/24/21 18:48 Ur Barbiturates Screen Negative 06/24/21 18:48 Ur Phencyclidine Scrn Negative 06/24/21 18:48 Ur Amphetamines Screen Negative 06/24/21 18:48 U Benzodiazepines Scrn Negative 06/24/21 18:48 Urine Cocaine Screen Negative 06/24/21 18:48 U Marijuana (THC) Screen Negative 06/24/21 18:48 Drugs of Abuse Note Disclamer 06/24/21 18:48 SARS-CoV-2 (PCR) Negative (Negative) 06/24/21 12:20 Blood Type A POSITIVE 06/20/21 15:07 Antibody Screen Negative 06/20/21 15:07 Microbiology: Microbiology 06/28/21 20:51 Peripheral/Venous Blood Culture - Preliminary Culture in Progress 06/28/21 20:51 Peripheral/Venous Blood Culture - Preliminary Culture in Progress Mann/IV: Voiding Method Toilet Active Medications - Current Medications Current Medications: Generic Name Dose Route Start Last Admin Trade Name Freq PRN Reason Stop Dose Admin Acetaminophen 650 mg 06/20/21 19:08 Acetaminophen 325 Mg Tab PO Q4H PRN Pain MILD(1-3)/Fever >100.5/ALFREDO Hydrocodone Bitart/Acetaminophen 1 each 06/23/21 12:56 06/23/21 20:58 Hydrocodone/Acetaminophen 5-325 Mg Tab PO 1 each Q6H PRN Administration Pain, Moderate (4-6) Albuterol 2.5 mg 06/20/21 19:08 Albuterol 2.5 Mg/3 Ml Nebu IH Q4HRT PRN Shortness Of Breath Aripiprazole 20 mg 06/29/21 10:00 06/29/21 09:29 Aripiprazole 10 Mg Tab PO 20 mg QDAY KRYSTYNA Administration Atorvastatin Calcium 20 mg 06/20/21 22:00 06/28/21 22:04 Atorvastatin 20 Mg Tab PO 20 mg QHS KRYSTYNA Administration Cefuroxime Axetil 500 mg 06/27/21 22:00 06/29/21 09:30 Cefuroxime 250 Mg Tab PO 07/02/21 10:01 500 mg Q12HR KRYSTYNA Administration Divalproex Sodium 250 mg 06/28/21 22:00 06/29/21 12:[address] 250 Mg Tab PO 250 mg BID KRYSTYNA Administration Docusate Sodium 100 mg 06/24/21 15:00 06/29/21 09:29 Docusate Sodium 100 Mg Cap PO 100 mg BID KRYSTYNA Administration Escitalopram Oxalate 20 mg 06/28/21 10:00 06/29/21 09:29 Escitalopram 10 Mg Tab PO 20 mg QDAY KRYSTYNA Administration Gabapentin 300 mg 06/20/21 20:00 06/29/21 13:00 Gabapentin 300 Mg Cap PO 300 mg TID KRYSTYNA Administration Hydromorphone HCl 0.5 mg 06/23/21 13:57 06/25/21 21:51 Hydromorphone 0.5 Mg/0.5 Ml Inj IV 0.5 mg Q3H PRN Administration Pain , Severe (7-10) Hydroxyzine Pamoate 25 mg 06/23/21 13:03 Hydroxyzine Pamoate 25 Mg Cap PO Q6H PRN Anxiety Lorazepam 1 mg 06/21/21 09:55 06/21/21 10:25 Lorazepam 2 Mg/Ml Vial IV 1 mg Q4H PRN Administration Anxiety Magnesium Citrate 300 ml 06/24/21 14:03 Magnesium Citrate 300 Ml Oral Liqd PO ONCE KRYSTYNA Magnesium Hydroxide 30 ml 06/22/21 17:27 06/25/21 22:34 Magnesium Hydroxide (Mom) Oral Liqd Udc PO 30 ml ONCE PRN Administration Constipation Magnesium Oxide 400 mg 06/21/21 10:00 06/29/21 09:30 Magnesium Oxide 400 Mg Tab PO 400 mg QDAY KRYSTYNA Administration Melatonin 10 mg 06/20/21 22:00 06/28/21 22:05 Melatonin 5 Mg Tab PO 10 mg HS KRYSTYNA Administration Metoclopramide HCl 5 mg 06/22/21 15:17 06/22/21 18:03 Metoclopramide 10 Mg/2 Ml Inj IV 5 mg Q8H PRN Administration Vomiting Metoprolol Tartrate 12.5 mg 06/20/21 22:00 06/29/21 09:29 Metoprolol Tartrate 25 Mg Tab PO 12.5 mg BID KRYSTYNA Administration Mirtazapine 15 mg 06/20/21 22:00 06/28/21 22:05 Mirtazapine 15 Mg Tab PO 15 mg QHS KRYSTYNA Administration Ondansetron HCl 4 mg 06/20/21 19:23 06/29/21 12:45 Ondansetron 4 Mg/2 Ml Inj IV 4 mg Q8H PRN Administration Nausea And Vomiting Pantoprazole Sodium 40 mg 06/22/21 07:30 06/29/21 16:05 Pantoprazole 40 Mg Tab PO 40 mg BIDAC KRYSTYNA Administration Scopolamine 1 each 06/24/21 16:00 06/27/21 10:48 Scopolamine Transdermal Patch 72 Hr TD 1 each Q3D KRYSTYNA Administration Sodium Chloride 10 ml 06/20/21 22:00 06/29/21 09:34 Sodium Chloride 0.9% 10 Ml Flush Syringe IV 10 ml BID KRYSTYNA Administration Sodium Chloride 10 ml 06/20/21 19:08 06/24/21 04:53 Sodium Chloride 0.9% 10 Ml Flush Syringe IV 10 ml PRN PRN Administration LINE FLUSH Nutrition/Malnutrition Assess - Dietary Evaluation Nutrition/Malnutrition Findings: Nutrition Notes Start: 06/21/21 15:26 Freq: Status: Active Protocol: Document 06/24/21 14:47 ANDREA (Rec: 06/24/21 15:13 ANDREA [id number]) Nutrition Notes Initial or Follow up Reassessment Current Diagnosis Hypertension Other Pertinent Diagnosis s/p Cholelithiasis/Biliary Dyskinesia, s/p UGIB/ Hematemesis/EGD, OHS, Psych Current Diet GI Soft Diet (since D 06/23). Labs/Tests 06/24: Crea 0.7. Pertinent Medications 06/24: Nutritionally unremarkable. Height 5 ft 9 in Weight 142 kg [place] Body Weight (kg) 72.72 BMI 46.2 Weight change and time frame Discrepancy of 14.7 Kg body weight gain in 3 days reported . Weight Status Morbidly Obese Subjective/Other Information RD consult for routine F/U on dietary advancement. Pt's PO intake of meals has been Good (100%), according to ADL notes. Pt is on Room Air, O2 saturation @ 96%, according to Physical Assessment History notes. Pt presents abdominal pain and back pain, according to Progress notes. Pt presents abdominal surgical wounds, according to Physical Assessment History notes. Pt still presenting nausea, but no vomiting, according to Progress notes. Procedure on 06/23: Laparoscopic cholecystectomy, well tolerated, according to Operative Report notes. Pt is clinically cleared for discharge to an Inpatient Psychiatric Facility, according to Progress notes. Percent of energy/protein needs met: Prescribed GI Soft Diet provides for energy/protein needs (2,000 Kcal/82 g) during LOS. Burn Absent Trauma Absent GI Symptoms Nausea Food Allergy No Skin Integrity/Comment Abdominal surgical wounds. Current % PO Good (75-100%) Minimum of two criteria No #1 Nutrition Diagnosis Altered GI function Comments: Pt is s/p Cholelithiasis/ Biliary Dyskinesia, s/p UGIB/ Hematemesis/EGD. Diagnosis Progress(for reassessment Improved documentation) Is patient on ventilator? No Is Patient Ambulatory and/or Out of Bed Yes REE-([facility]-ambulatory/OOB) [ 3042.494 NUTR.[id number]] Kcal/Kg value to use for calculation 14 Approximate Energy Requirements Using 1988 kcal/Kg Calculation Used for Recommendations Kcal/kg Additional Notes Protein: 0.8-1 g/Kg AdjBW; 80- 100 g/day. Fluids: 1 ml/Kcal, or as per MD. Nutrition Intervention Change Diet Order: Continue GI Soft diet, as tolerated; when pertinent, advance towards Regular Diet. Goal #1 Adjust the dietary intervention to better serve Pt's needs and clinical conditions during LOS. Goal #2 Facilitate PO intake of meals with elemental, textural, or mechanical modification during LOS. Goal #3 Maintain body weight within +/ -3% of admission body weight during LOS. Revisit per MD consult or patient Sign Off request: Additional Comments Continue monitoring food tolerance, %PO intake of meals , and BM.
[2021-06-29] MEDS: MELATONIN 5 MG TAB PO SCH (22:04)
[2021-06-29] MEDS: MIRTAZAPINE 15 MG TAB PO SCH (22:05)
[2021-06-30 07:28] LABS: Basophils # (Auto) 0.1 K/mm3 (0.0-0.1); Basophils % (Auto) 0.4 % (0.0-1.8); Eosinophils # (Auto) 0.2 K/mm3 (0.0-0.4); Eosinophils % (Auto) 1.4 % (0.0-4.3); Hematocrit 42.6 % (35.5-45.6); Hemoglobin 13.9 gm/dl (11.8-15.2); Lymphocytes % (Auto) 15.8 % (13.4-35.0); Mean Corpuscular HGB Conc 33 % (32-34); Mean Corpuscular Volume 82 fl (84-94); Monocytes % (Auto) 7.9 % (0.0-7.3); Platelet Count 362 K/mm3 (140-440); Red Blood Count 5.18 M/mm3 (3.65-5.03); Red Cell Distribution Width 15.1 % (13.2-15.2)
[2021-06-30 07:48] LABS: Blood Urea Nitrogen 16 mg/dL (9-20); Calcium 8.8 mg/dL (8.4-10.2); Hemolysis Index 7
[2021-06-30 07:49] LABS: BUN/Creatinine Ratio 23
[2021-06-30] MEDS: DIVALPROEX DR 250 MG TAB PO SCH (09:36)
[2021-06-30] MEDS: GABAPENTIN 300 MG CAP PO SCH (09:37)
[2021-06-30] MEDS: PANTOPRAZOLE 40 MG TAB PO SCH (09:37)
[2021-06-30] MEDS: DOCUSATE SODIUM 100 MG CAP PO SCH (09:38)
[2021-06-30] MEDS: ARIPiprazole 10 MG TAB PO SCH (09:38)
[2021-06-30] MEDS: MAGNESIUM OXIDE 400 MG TAB PO SCH (09:38)
[2021-06-30] MEDS: ESCITALOPRAM 10 MG TAB PO SCH (09:38)
[2021-06-30] MEDS: SCOPOLAMINE TRANSDERMAL PATCH 72 HR TD SCH (09:39)
[2021-06-30] MEDS: METOPROLOL TARTRATE 25 MG TAB PO SCH (09:44)
[2021-06-30 09:45] VITALS: BP 118/65
--- NOTE | 2021-06-30 14:36 | Progress Note ---
Subjective - Reason for Consult Consult date: 06/30/21 Reason for consult: SI - Chief Complaint Chief complaint: The patient was seen today. He is calm, cooperative and pleasant. He is upbeat and says he spoke to his brother. The patient say his brother says he will help him. He says the brother will make sure he gets to the places he needs to get to in order to maintain his mental health. He also says the brother told him he would pay for whatever prescriptions he needed. The patient denies SI/HI or hallucination. He says "I was feeling like that because of my situation." He says "the medications you gave me I would like to continue." The patient had me to call his brother and contact him, in which I did from the patient's bedside, but did not get an answer. REVIEW OF SYSTEMS Constitutional: Negative for weight loss ENT: Negative for stridor Respiratory: Negative for cough or hemoptysis All other systems reviewed and are negative MENTAL STATUS EXAMINATION General Appearance and Behavior: Age appropriate, wearing appropriate clothes, cooperative, polite with questioning, good eye contact, calm, polite Cooperation: cooperative Psychomotor Behavior: Psychomotor normal Mood: good, better Affect and affective range: Congruent with stated mood Thought Process: Goal directed Thought Content: Optimism Speech: Normal volume, Regular rate and rhythm Suicidal Ideation: Denies Homicidal Ideation: Denies Hallucination: Denies Delusions: None elicited Impulse Control: limited Insight and Judgment: Limited Memory: Intact Attention: attentive Orientation: Alert and oriented Diagnoses: Schizophrenia Treatment Plan d/c 1013 Abilify 20mg po daily Lexapro 20mg po daily Depakote DR 250mg po BID Melatonin 10m po qhs PSYCHOTHERAPY: Supportive psychotherapy provided MEDICAL: Per primary team DELIRIUM PRECAUTIONS: Please re-orient patient frequently, keep lights on during the day, and minimize benzodiazepines and opiates as these medications could worsen patient's confusion. MANAGER ENGAGEMENT: Per medical team DISPOSITION: Do not recommend acute psychiatric inpatient treatment once the patient is medically clear. The patient understands that if SI/HI reoccur he is to seek immediate assistance The patient to follow up with outpatient psych in 7 to 14 days upon discharge The chief service dispatcher to further discuss safety plan and give all outpatient resource Will sign off. Thank you for the consult. Case staffed with Dr. Sanchez Mental Status Exam - Vital signs Last Vital Signs Temp 97.9 F 06/30/21 09:32 Pulse 95 H 06/30/21 09:44 Resp 18 06/30/21 10:00 BP 118/65 06/30/21 09:44 Pulse Ox 98 06/30/21 10:00
--- NOTE | 2021-07-01 12:42 | Discharge Summary ---
Providers - Providers Date of Admission: 06/20/21 19:08 Date of discharge: 06/30/21 Attending physician: SANGEETA MELGOZA 06/21/21 20:42 Consult to Mental Health [CONS] Routine Reason For Exam: psychosis 06/22/21 18:21 Consult to Physician [CONS] Routine Comment: Consulting Provider: RONALD NGUYEN Physician Instructions: Reason For Exam: Gallbladder disease Primary care physician: [employer] Hospitalization Condition: Stable Hospital course: Brief history and daily hospital course 36 YO Male with HTN, Obesity Hypoventilation Syndrome, GERD, Neuropathy, Psychosis NOS presents ED for evaluation of hematemesis with 3-4 episodes of vomiting of blood over the past 3 days. Patient states his symptoms have been accompanied by abdominal discomfort. The patient was seen and evaluated in the emergency department. All lab and imaging studies reviewed. Patient had a witnessed episode of hematemesis while in the emergency department. GI team was consulted. Underwent EGD, esophagitis and just hematemesis, since then no new episodes of bleeding Patient also had contracted gallbladder, had lap cholecystectomy, symptoms resolved Currently patient is having persistent leukocytosis, though no overwhelming or significant infectious process, psych is refusing to accept till patient is medically cleared with normal WBC. 06/21/2021. The patient underwent EGD which revealed minimal gastritis throughout the stomach. Patient also had a 5 mm single sessile benign-appearing gastric polyp in the gastric body. The patient also had localized area of esophagitis at the GE junction with overlying blood. This appeared to be related to simple esophagitis with no evidence of Arm[place]-Cobian tear. Continue PPI twice daily. We will also perform HIDA scan with ejection fraction to rule out biliary dyskinesia as potential etiology for patient's abdominal pain. GI following. Psych has been consulted for patient's history of psychosis. Resume home psych medications 06/1821; s/p lap cholecystectomy Continue postop care Surgery cleared for psych placement DC planning per case management Possible inpatient psych placement 06/24/21; GI and surgery cleared for discharge Patient is medically stable for discharge, disposition per psychiatry 06/25/21 medically cleared for discharge to inpatient psych facility 06/26/2021; patient is medically cleared for discharge, urine drug screen negative, COVID-19 test negative, urine analysis negative for abnormality Patient can be placed inpatient psych facility further evaluation and management 06/27/21; patient's WBC is 11.8 today, normal range 4.5-11.0 ,clinically insignificant Patient is afebrile, urinalysis is normal, no evidence of infection, no pulmonary symptoms, will check chest x-ray If negative patient is cleared medically for discharge. Disposition per psych 06/28; persistent leukocytosis, WBC 17.7, afebrile, no upper respiratory symptoms or urinary symptoms We will check urine cultures, blood cultures, consult ID if no improvement tomorrow Plan of care reviewed with the patient and his nurse Patient continues to have aggressive suicidal thoughts and ideation, management per psych 06/29/2021; patient feels better, continues to express suicidal thoughts and ideation 1013 status Persistent leukocytosis, chest x-ray reviewed no acute infectious process, empiric antibiotics with Ceftin for 5 days Patient may be discharged to inpatient psych facility once medically cleared 06/30/21: Patient tolerating diet. 1013 was rescinded. Patient does not need any inpatient psychiatric admission. Patient is being discharged home in stable condition with his family. Patient will have follow-up psychiatry as an outpatient. Patient was also instructed to follow-up with general surgery in 1 to 2 weeks postdischarge. Disposition: HOME / SELF CARE / HOMELESS Final Discharge Diagnosis (Prints w/discharge instructions): --Persistent leukocytosis; without evidence of any infectious process. -- Contracted gallbladder ;s/p cholecystectomy. --UGIB/hematemesis; s/p EGD, Esophagitis induced hematemesis, continue Pepcid. --Abdominal pain; resolved. --Hypertension; well-controlled. --Obesity hypoventilation syndrome; advised diet modification exercise as tolerated and weight reduction. --Psychosis/1013 status. --GERD; Protonix Time spent for discharge: 34 minutes Core Measure Documentation - Palliative Care Palliative Care/ Comfort Measures: Not Applicable - Core Measures Any of the following diagnoses?: none Exam - Constitutional Vitals: Temp Pulse Resp BP Pulse Ox 97.9 F 95 H 18 118/65 98 06/30/21 09:32 06/30/21 09:44 06/30/21 10:00 06/30/21 09:44 06/30/21 10:00 General appearance: Present: no acute distress, well-nourished - EENT Eyes: Present: PERRL ENT: hearing intact, clear oral mucosa - Neck Neck: Present: supple, normal ROM - Respiratory Respiratory effort: normal Respiratory: bilateral: CTA - Cardiovascular Heart Sounds: Present: S1 & S2. Absent: rub, click - Extremities Extremities: pulses symmetrical, No edema Peripheral Pulses: within normal limits - Abdominal General gastrointestinal: Present: soft, non-tender, non-distended, normal bowel sounds - Integumentary Integumentary: Present: clear, warm, dry - Musculoskeletal Musculoskeletal: gait normal, strength equal bilaterally - Psychiatric Psychiatric: appropriate mood/affect, intact judgment & insight - Neurologic Neurologic: CNII-XII intact, moves all extremities Plan Activity: advance as tolerated Weight Bearing Status: Non-Weight Bearing Diet: low fat, low salt Wound: keep clean and dry Follow up with: RONALD NGUYEN DO [Staff Physician] - 7 Days PRIMARY CARE, [Primary Care Provider] - 3-5 Days Forms: Accompanied Note Prescriptions: Melatonin [Melatonin 10MG CAP] 10 mg PO QHS #30 cap ARIPiprazole [Abilify] 20 mg PO DAILY #30 Divalproex [DepJason MCKEON] 250 mg PO BID #60 tablet Escitalopram Oxalate [Lexapro] 20 mg PO DAILY #30
== END 2021-06-30 15:39 | disposition home or self-care (01) | DRG 417 ==
LOC: ED 13:34 → 3A 19:08
PROVIDERS: ADMIT Internal Medicine; ATTEND Internal Medicine
PROC: 0DB68ZX Excision of Stomach, Via Natural or Artificial Opening Endoscopic, Diagnostic (ICD-10-PCS; 2021-06-21)
PROC: 0FT44ZZ Resection of Gallbladder, Percutaneous Endoscopic Approach (ICD-10-PCS; principal; 2021-06-23)
DX: K80.20 Calculus of gallbladder without cholecystitis without obstruction (principal); K29.71 Gastritis, unspecified, with bleeding; K21.01 Gastro-esophageal reflux disease with esophagitis, with bleeding; E66.2 Morbid (severe) obesity with alveolar hypoventilation; K92.2 Gastrointestinal hemorrhage, unspecified; F29 Unspecified psychosis not due to a substance or known physiological condition; Z20.822 Contact with and (suspected) exposure to COVID-19; F20.9 Schizophrenia, unspecified; K82.8 Other specified diseases of gallbladder; K44.9 Diaphragmatic hernia without obstruction or gangrene; Z82.49 Family history of ischemic heart disease and other diseases of the circulatory system
CPT/HCPCS: 36415; 71045; 74177; 76705; 78227; 80048; 80053; 80307; 81001; 82140; 83690; 83735; 84100; 85025; 85027; 85610; 85730; 86850; 86900; 86901; 87040; 87086; 88304; 94640; G0378; J1815; J3490; A9537; C9113; J0171; J1170; J1956; J2060; J2270; J2405; J2704; J2710; J2765; J7030; J7120; Q9967; U0003